=== PATIENT | female | born 1975 | race Caucasian/White ===

== ENCOUNTER 2023-01-16 12:11 | Emergency (ER) | payer BC, SELFPAY ==
[2023-01-16 12:19] VITALS: BP 170/100; PULSE 94; RESP 18; TEMP 36.6; O2SAT 98; BMI 39.2
[2023-01-16 12:22] VITALS: O2SAT 100
[2023-01-16 12:23] VITALS: BP 198/111; PULSE 69; RESP 16
--- NOTE | 2023-01-16 12:34 | ED_ITS ---
HPI - General Adult General Chief complaint: Weakness Stated complaint: EXTREMITY NUMBNESS/ NAUSEA Time Seen by Provider: 01/16/23 12:24 History of Present Illness HPI narrative: this patient's here for evaluation of an unusual feeling while at work. She says she went to work feeling fine. She is sitting down talking to coworkers and was not under any stress at the time. She says she just felt a wave come over her. She did not have a headache or neck pain. She did not vomit. She denied any chest pain palpitations or shortness of breath. She says she feels like her left arm is heavy but she did not notice any coordination problems. She did not have diplopia or dysarthria or dysphasia. She says she suffers from anxiety but this feels different than her anxiety. She has not had previous transient ischemic attacks or CVAs. She said she was scheduled an elective orthopedic procedure and they canceled it when they were prepping her because her blood pressure went bad. She went and followed up with a chief internal auditor and had a monitor and carotid ultrasound and they told her she was fine. She does take caffeine products but no tobacco or or illicit drugs. She is not on a blood pressure medicines. Her pressure was up a little bit on arrival here. She just feels like there is a h eaviness pulling on her left arm. She is right-handed dominant. She does not really have any other symptoms at this time. Related Data Allergies Allergy/AdvReac Type Severity Reaction Status Date / Time cephalexin [From Keflex] Allergy Unknown Verified 01/16/23 12:19 Exam Narrative Exam Narrative: GENERAL: Well hydrated, appears well, No obvious distress, Awake, Alert, Oriented x 3, Cognition intact HEENT: Normocephalic, No evidence of trauma, injury or infection, airway intact. Conjuntiva normal, no pallor or scleral icterus NECK: Supple, no meningeal irritation, full ROM, non-tender, No JVD CHEST: Symmetrical, no injury, non-tender, RESP: LCTA, no wheeze, rales, rhonchi,no subcutaneous emphysema, no labored resp irations CARDIO: Normal rate and rhythm, No murmur, Rub, or ectopy during auscultation. ABD: Non-tender, normal BS, no guarding, rebound or rigidity. No pulsatile, masses. No organomegaly NEURO: Neuro at baseline, No motor deficits, CN 2-12 Normal, Mentation inctact.fine and gross motor movement of her left upper extremity is normal. She has no pronator drift. EXTREMITIES: No edema, good tissue perfusion, no venous cords, non-tender SKIN: No petechiae, purpura, or abnormal bruising, warm, dry, no rash Constitutional Vital Signs, click to edit/add: Last Vital Signs Temp 97.8 F 01/16/23 12:19 Pulse 94 H 01/16/23 12:19 Resp 18 01/16/23 12:19 BP 170/100 H 01/16/23 12:19 Pulse Ox 98 01/16/23 12:19 O2 Del Method Nasal Cannula 01/16/23 12:19 Course Vital Signs Vital signs: Vital Signs Temperature 97.8 F 01/16/23 12:19 Pulse Rate 94 H 01/16/23 12:19 Respiratory Rate 18 01/16/23 12:19 Blood Pressure 170/100 H 01/16/23 12:19 Pulse Oximetry 98 01/16/23 12:19 Oxygen Delivery Method Nasal Cannula 01/16/23 12:19 Temperature 97.8 F 01/16/23 12:19 Pulse Rate 94 H 01/16/23 12:19 Respiratory Rate 18 01/16/23 12:19 Blood Pressure 170/100 H 01/16/23 12:19 Pulse Oximetry 98 01/16/23 12:19 Oxygen Delivery Method Nasal Cannula 01/16/23 12:19 Medical Decision Making MDM Narrative Medical decision making narrative: This document has been composed with a new electronic medical record and dragging voice recognition system. This document may not fully inaccurately reflect the entirety of the patient encounter.patient's CT scan and laboratory testing did not disclose any gross abnormalities. I will contact her primary care doctors for follow-up. This may represent a transient ischemic attack, less likely anxiety attack. I am recommending one or two baby aspirin a day. And I will speak to her primary care doctor for follow-up. I should also mention that she had a complete evaluation by cardiology last year that did not disclose any acute abnormalities. Discharge Plan Discharge Chief Complaint: Weakness Clinical Impression: Neurological deficit, transient Patient Disposition: Home, Self-Care Time of Disposition Decision: 13:58 Instructions: Paresthesia (ED) Additional Instructions: follow-up with her primary care for further evaluation Stand Alone Forms: Portal Instructions Referrals: Katy Villarreal MD [Primary Care Provider] - 1 week
--- NOTE | 2023-01-16 12:43 | ECG_ITS ---
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
[2023-01-16 12:55] VITALS: PULSE 79
[2023-01-16 13:01] LABS: Basophils Percent Auto 0.4 % (0.2-2.0); Eosinophils Absolute Auto 0.1 10^3/uL (0.0-0.7); Hematocrit 42.6 % (36.0-48.0); Hemoglobin 13.8 g/dL (12.0-16.0); Immature Granulocytes Abs Auto 0.03 10^3/uL (0.00-0.03); Immature Granulocytes Pct Auto 0.4 % (0.0-0.5); Lymphocytes Absolute Auto 0.8 10^3/uL (1.2-3.8); Lymphocytes Percent Auto 11.6 % (20.5-60.0); Mean Corpuscular HGB Conc 32.4 g/dL (29.9-35.2); Mean Corpuscular Hemoglobin 28.3 pg (26.7-34.0); Mean Corpuscular Volume 87.3 fL (81.0-99.0); Mean Platelet Volume 9.8 fL (9.5-13.5); Monocytes Absolute Auto 0.3 10^3/uL (0.3-0.8); Monocytes Percent Auto 4.8 % (1.7-12.0); Neutrophils Absolute Auto 5.6 10^3/uL (1.4-6.5); Neutrophils Percent Auto 81.8 % (43.0-75.0); Platelet Count 203 10^3/uL (150-450); Red Blood Count 4.88 10^6/uL (4.20-5.40); Red Cell Distribution Width 14.3 % (11.0-15.0); White Blood Count 6.8 10^3/uL (4.0-11.0)
--- NOTE | 2023-01-16 13:12 | CT_ITS ---
The [address] [address] Patient Name: MICHAELLE MARTIN MRN: [id number] date: 1975 Sex: F Assigned Patient Location: ER Current Patient Location: ER Accession/Order Number: [id number] Exam Date: 01/16/2023 13:02 Report Date: 01/16/2023 13:21 At the request of: ELVIN BHANDARI Procedure: CT head/brain wo con EXAM: CT head/brain wo con HISTORY: left arm weakness COMPARISON: None. TECHNIQUE: Multiple computed tomograms of the brain were obtained, with sagittal and coronal reconstructions. Radiation reduction technique and algorithms were utilized during the study. FINDINGS: The ventricles are not enlarged, the lateral ventricles are slightly asymmetric but within normal variation, and the third ventricles in the midline. The sylvian fissures and cortical sulci are unremarkable. There is no evidence of an intracranial hemorrhage, mass lesion or apparent acute infarct. No abnormality is seen in the deep white matter. The cerebellum and visualized brainstem are intact. The paranasal sinuses are clear as visualized. The middle ears are aerated. The mastoid sinuses are clear. There is no apparent acute skull fracture. CT/CT head/brain wo con IMPRESSION: There is no evidence of an intracranial hemorrhage, mass lesion or apparent acute infarct in this noncontrast study. The paranasal sinuses are clear. There is no evidence of a skull fracture. If the patient's symptoms persist and further evaluation is clinically indicated, perhaps an MRI of the brain would be helpful. Electronically authenticated by: LUCAS LEROY Date: 01/16/2023 13:21
[2023-01-16 13:14] VITALS: BP 163/91; PULSE 71; RESP 17; O2SAT 95
[2023-01-16 13:20] LABS: Alanine Aminotransferase 50 U/L (14-59); Albumin Globulin Ratio 0.9; Albumin Level 3.8 g/dL (3.4-5.0); Alkaline Phosphatase 97 U/L (46-116); Aspartate Amino Transferase 16 U/L (15-37); BUN Creatinine Ratio 22.1; Bilirubin Total 0.3 mg/dL (0.2-1.0); Calcium 9.4 mg/dL (8.5-10.1); Carbon Dioxide 27.7 mmol/L (21.0-32.0); Chloride 100 mmol/L (98-107); Estimated GFR (African America >60 (>=60); Estimated GFR (Non-African Ame >60 (>=60); Globulin 4.2 g/dL; Glucose 128 mg/dL (74-106); Potassium 3.7 mmol/L (3.5-5.1); Sodium 138 mmol/L (136-145)
== END 2023-01-16 14:15 | disposition home or self-care (01) ==
PROVIDERS: Emergency Provider Emergency Medicine Emergency Medical Services; PCP Family Medicine
DX: R29.818 Other symptoms and signs involving the nervous system (principal); F41.9 Anxiety disorder, unspecified
CPT/HCPCS: 36415; 70450; 80053; 85025; 93005; 99285

== ENCOUNTER 2023-01-22 14:12 | Outpatient (OUT) | payer BC, SELFPAY ==
[2023-01-22 15:35] LABS: Thyroid Stimulating Hormone 3.723 uIU/mL (0.358-3.740)
[2023-01-23 04:14] LABS: FSH 57.9 mIU/mL (.)
== END 2023-01-22 14:13 | disposition home or self-care (01) ==
LOC: LAB 14:12
PROVIDERS: PCP Family Medicine; Visit Provider Family Medicine
DX: R23.2 Flushing (principal); R00.2 Palpitations
CPT/HCPCS: 36415; 83001; 84443

== ENCOUNTER 2023-02-26 08:22 | Outpatient (OUT) | payer BC, SELFPAY ==
--- NOTE | 2023-02-27 06:59 | PM.STRESS ---
Stress Test Stress Test Allergies Allergy/AdvReac Type Severity Reaction Status Date / Time cephalexin [From Keflex] Allergy Unknown Verified 01/16/23 12:19 Requesting physician: Katy Villarreal Procedure: Exercise stress test General Information: Reason for Stress Test: Chest pain Cardiac History and Risk Factors: Arrhythmia during anesthesia Resting 12 - Lead Electrocardiogram: Rate & rhythm: Normal sinus at a rate of 72. [place]: Normal T-waves: Normal ST-segments: Normal Stress Test: Protocol: Brandon protocol was followed. Exercise capacity: Good exercise capacity. Total exercise time of 8 minutes 1 second reached Brandon stage 3 at 3MPH, 12% grade, & 8.2 METs. Blood pressure: Initial: 144/96, Maximum: 186/108, Recovery: 158/88 Rate & rhythm: Patient remained in sinus rhythm during the exercise and recovery portions of the study.? The maximum heart rate was 151, which was 86% of the maximum predicted heart rate 174. ST-segments & T-waves: There were no T-wave changes and no ST-segment changes when compared to the baseline EKG. Patient response/symptoms: There were no symptoms similar to the chief complaint. Interpretation: Normal exercise stress test. Clinical correlation required.
== END 2023-02-26 08:23 | disposition home or self-care (01) ==
PROVIDERS: PCP Family Medicine; Visit Provider Family Medicine
DX: R07.9 Chest pain, unspecified (principal)
CPT/HCPCS: 93017

== ENCOUNTER 2023-02-27 10:37 | Outpatient (REF) | payer BC, SELFPAY ==
[2023-03-03 16:12] LABS: Age Gdln ACOG Testing Note (.); HPV Aptima Negative (Negative); IGP, Aptima HPV, rfx 16/18,45 Note (.)
== END 2023-02-28 10:38 | disposition home or self-care (01) ==
LOC: LAB 10:37
PROVIDERS: PCP Family Medicine; Visit Provider Physician Assistant
DX: Z12.4 Encounter for screening for malignant neoplasm of cervix (principal)
CPT/HCPCS: 87624; G0145

== ENCOUNTER 2023-10-23 14:02 | Outpatient (OUT) | payer BC, SELFPAY ==
--- NOTE | 2023-10-23 14:05 | MM_ITS ---
Patient Name: MICHAELLE MARTIN MR#: [id number] : 1975 Exam Date: 10/23/2023 Ordering Doctor: DR Matti Madden . RADIOLOGY REPORT PROCEDURE: MM TOMOSYNTHESIS SCREENING BI COMPARISON: MG MAMM SCREEN 3D JUSTYNA CAD, 10/03/2022. MG MAMM SCREEN 3D JUSTYNA CAD, 09/30/2021. INDICATIONS: screening Calculator Name NCI Breast Cancer Risk Assessment Tool 5 Year Breast Cancer Risk 1.70% Lifetime Breast Cancer Risk 17.10% Personal Breast Cancer No Personal Ovarian Cancer No Treatments None Family Cancers Sister with breast cancer at age 45. LOCATION: The [facility] BREAST COMPOSITION: Scattered areas fibroglandular density. FINDINGS: DIAGNOSTIC CATEGORY 1--NEGATIVE. NO CHANGE FROM COMPARISON ASSESSMENT. Scattered benign-appearing lymph nodes are present. RIGHT BREAST: No significant suspicious finding. LEFT BREAST: No significant suspicious finding. RECOMMENDATIONS: ROUTINE MAMMOGRAM AND CLINICAL EVALUATION IN 12 MONTHS. PLEASE NOTE: A NORMAL MAMMOGRAM DOES NOT EXCLUDE THE POSSIBILITY OF BREAST CANCER. A CLINICALLY SUSPICIOUS PALPABLE LUMP SHOULD BE BIOPSIED. Dictated by: Noe Bagley MD on 10/23/2023 at 15:05 Approved by: Noe Bagley MD on 10/23/2023 at 15:06
== END 2023-10-23 14:03 | disposition home or self-care (01) ==
LOC: MAMMO 14:03
PROVIDERS: PCP Family Medicine; Visit Provider Obstetrics & Gynecology
DX: Z12.31 Encounter for screening mammogram for malignant neoplasm of breast (principal); Z80.3 Family history of malignant neoplasm of breast
CPT/HCPCS: 77063; 77067

== ENCOUNTER 2023-11-03 07:53 | Outpatient (OUT) | payer BC, SELFPAY ==
[2023-11-03 08:14] LABS: Basophils Percent Auto 0.6 % (0.2-2.0); Eosinophils Absolute Auto 0.1 10^3/uL (0.0-0.7); Eosinophils Percent Auto 1.8 % (0.9-7.0); Hematocrit 44.6 % (36.0-48.0); Hemoglobin 14.5 g/dL (12.0-16.0); Immature Granulocytes Abs Auto 0.01 10^3/uL (0.00-0.03); Immature Granulocytes Pct Auto 0.2 % (0.0-0.5); Lymphocytes Absolute Auto 0.8 10^3/uL (1.2-3.8); Lymphocytes Percent Auto 16.2 % (20.5-60.0); Mean Corpuscular HGB Conc 32.5 g/dL (29.9-35.2); Mean Corpuscular Hemoglobin 27.9 pg (26.7-34.0); Mean Corpuscular Volume 85.8 fL (81.0-99.0); Monocytes Absolute Auto 0.3 10^3/uL (0.3-0.8); Monocytes Percent Auto 5.4 % (1.7-12.0); Neutrophils Absolute Auto 3.8 10^3/uL (1.4-6.5); Neutrophils Percent Auto 75.8 % (43.0-75.0); Platelet Count 199 10^3/uL (150-450); Red Cell Distribution Width 13.1 % (11.0-15.0)
[2023-11-03 09:48] LABS: Alanine Aminotransferase 37 U/L (14-59); Albumin Globulin Ratio 0.9; Albumin Level 3.7 g/dL (3.4-5.0); Alkaline Phosphatase 79 U/L (46-116); Anion Gap 12.9; Aspartate Amino Transferase 18 U/L (15-37); BUN Creatinine Ratio 19.1; Bilirubin Total 0.6 mg/dL (0.2-1.0); Calcium 9.6 mg/dL (8.5-10.1); Chloride 101 mmol/L (98-107); Chol HDL Ratio 2.5; Cholesterol 188 mg/dL (<=200); Estimated GFR (African America >60 (>=60); Estimated GFR (Non-African Ame >60 (>=60); Glucose 98 mg/dL (74-106); HDL Cholesterol 76 mg/dL (40-60); Potassium 3.9 mmol/L (3.5-5.1); Sodium 141 mmol/L (136-145); Thyroid Stimulating Hormone 2.742 uIU/mL (0.358-3.740); Total Protein 7.7 g/dL (6.4-8.2); Triglycerides 67 mg/dL (<=150); VLDL CHOLESTEROL 13.4 mg/dL
== END 2023-11-03 07:54 | disposition home or self-care (01) ==
PROVIDERS: PCP Family Medicine; Visit Provider Family Medicine
DX: Z00.00 Encounter for general adult medical examination without abnormal findings (principal)
CPT/HCPCS: 36415; 80053; 80061; 84443; 85025

== ENCOUNTER 2024-05-19 13:08 | Outpatient (OUT) | payer BC, SELFPAY ==
--- NOTE | 2024-05-19 13:14 | XR_ITS ---
The [address] [address] Patient Name: MICHAELLE MARTIN MRN: [id number] date: 1975 Sex: F Assigned Patient Location: [facility] Current Patient Location: Accession/Order Number: [id number] Exam Date: 05/19/2024 13:29 Report Date: 05/22/2024 06:52 At the request of: EVAN FIGUEREDO Procedure: XR cervical spine 2-3V EXAMINATION: XR cervical spine 2-3V HISTORY: Cervicalgia, Segmental And Somatic Dysfunction Of Cervical COMPARISON: No relevant comparison available. FINDINGS: BONES: Reversal of normal lordotic curvature extending from C2 to C7. Minimal grade 1 anterior listhesis of C3 on 4. Multilevel mild degenerative facet arthropathy. DISC SPACES: Slight narrowing C5-C6. PARASPINOUS: Negative. No paraspinous abnormality is seen. OTHER: Negative. XR/XR cervical spine 2-3V IMPRESSION: 1. Mild degenerative changes of cervical spine. Electronically authenticated by: SHWETA SANDOVAL Date: 05/22/2024 06:52
== END 2024-05-19 13:09 | disposition home or self-care (01) ==
LOC: RAD 13:10
PROVIDERS: PCP Family Medicine; Visit Provider Chiropractor
DX: M54.2 Cervicalgia (principal); M99.01 Segmental and somatic dysfunction of cervical region
CPT/HCPCS: 72040

== ENCOUNTER 2024-12-19 10:21 | Outpatient (OUT) | payer BC, SELFPAY ==
--- OUTSIDE RECORDS SUMMARY | 2024-12-19 10:23 | XMS_ITS | Encounter Summary ---
Author Organization [facility] Address [address] [place] [address] Care Team Providers Care Manager Cardiac Name Role Phone Katy Villarreal MD Primary Care Provider [phone] Encounter Details Date Type Department Care Team (Late st Contact Info) Description 10/23/2023 Clinisync Result Encounter [facility] External Department Unsolicited Matti Madden, DO [address] [facility] [place] [address] Social History Tobacco Use Types Packs/Day Years Used Date Smoking Tobacco: Never Alcohol Use Standard Drinks/Week Comments Yes 0 (1 standard drink = 0.6 oz pure alcohol) monthly, Caffeine intake: 1-2 cups per day Comments Unknown Sex and Gender Information Value Date Recorded Sex Assigned at Not on file Legal Sex Female 7:38 PM EDT Gender Identity Not on file Sexual Orientation Not on file documented as of this encounter Plan of Treatment Not on file documented as of this encounter Procedures Procedure Name Priority Date/Time Associated Diagnosis Comments MM TOMOSYNTHESIS SCREENING BI 10/23/2023 3:06 PM EDT documented in this encounter Results * MM TOMOSYNTHESIS SCREENING BI (10/23/2023 3:06 PM EDT) Anatomical Region Laterality Modality Other 10/23/2023 3:0 6 PM EDT Narrative 10/23/2023 3:07 PM EDT The [address] [address] Mammography Report Signed Patient: POP HILL MR#: [id number] : 1975 Acct:[id number] Age/Sex: 48 / F ADM Date: 10/23/23 Loc: MAMMO Attending Dr: Matti Madden D.O. Ordering Physician: Matti Madden D.O. Results: Date of Service: 10/23/23 Follow Up: Procedure(s): MM tomosynthesis screening BI Accession Number(s): [id number] cc: Katy Villarreal M.D.; Matti Madden D.O. Patient Name: POP HILL MR#: [id number] : 1975 Exam Date: 10/23/2023 Ordering Doctor: DR Matti Madden . RADIOLOGY REPORT PROCEDURE: MM TOMOSYNTHESIS SCREENING BI COMPARISON: MG MAMM SCREEN 3D JUSTYNA CAD, 10/03/2022. MG MAMM SCREEN 3D JUSTYNA CAD, 09/30/2021. INDICATIONS: screening Calculator Name NCI Breast Cancer Risk Assessment Tool 5 Year Breast Cancer Risk 1.70% Lifetime Breast Cancer Risk 17.10% Personal Breast Cancer No Personal Ovarian Cancer No Treatments None Family Cancers Sister with breast cancer at age 45. LOCATION: The [facility] BREAST COMPOSITION: Scattered areas fibroglandular density. FINDINGS: DIAGNOSTIC CATEGORY 1--NEGATIVE. NO CHANGE FROM COMPARISON ASSESSMENT. Scattered benign-appearing lymph nodes are present. RIGHT BREAST: No significant suspicious finding. LEFT BREAST: No significant suspicious finding. RECOMMENDATIONS: ROUTINE MAMMOGRAM AND CLINICAL EVALUATION IN 12 MONTHS. PLEASE NOTE: A NORMAL MAMMOGRAM DOES NOT EXCLUDE THE POSSIBILITY OF BREAST CANCER. A CLINICALLY SUSPICIOUS PALPABLE LUMP SHOULD BE BIOPSIED. Dictated by: Noe Bagley MD on 10/23/2023 at 15:05 Approved by: Noe Bagley MD on 10/23/2023 at 15:06 Dictated By: Noe Bagley M.D. Signed By: 10/23/23 1507 DD/ 1506 TD/TT: Right Of Way Cutter: Procedure Note Radiology, Radiologist, - 10/23/2023 [place] [address] Mammography Report Signed Patient: POP HILL MMR#: [id number] : 1975Acct:[id number] Age/Sex: 48 / FADM Date: 10/23/23 Loc: MAMMO Attending Dr: Matti Madden D.O. Ordering Physician: Matti Madden D.O.Results: Date of Service: 10/23/23Follow Up: Procedure(s): MM tomosynthesis screening BI Accession Number(s): [id number] cc: Katy Villarreal M.D.; Matti Madden D.O. Patient Name: POP HILL MR#: [id number] : 1975 Exam Date: 10/23/2023 Ordering Doctor: DR Matti Madden . RADIOLOGY REPORT PROCEDURE: MM TOMOSYNTHESIS SCREENING BI COMPARISON: MG MAMM SCREEN 3D JUSTYNA CAD, 10/03/2022. MG MAMM SCREEN 3DBIL CAD, 09/30/2021. INDICATIONS: screening Calculator Name NCI Breast Cancer Risk Assessment Tool 5 Year Breast Cancer Risk 1.70% Lifetime Breast Cancer Risk 17.10% Personal Breast Cancer No Personal Ovarian Cancer No Treatments None Family Cancers Sister with breast cancer at age 45. LOCATION: The [facility] BREAST COMPOSITION: Scattered areas fibroglandular density. FINDINGS: DIAGNOSTIC CATEGORY 1--NEGATIVE. NO CHANGE FROM COMPARISON ASSESSMENT. Scattered benign-appearing lymph nodes are present. RIGHT BREAST: No significant suspicious finding. LEFT BREAST: No significant suspicious finding. RECOMMENDATIONS: ROUTINE MAMMOGRAM AND CLINICAL EVALUATION IN 12 MONTHS. PLEASE NOTE: A NORMAL MAMMOGRAM DOES NOT EXCLUDE THE POSSIBILITY OFBREAST CANCER. A CLINICALLY SUSPICIOUS PALPABLE LUMP SHOULD BE BIOPSIED. Dictated by: Noe Bagley MD on 10/23/2023 at 15:05 Approved by: Noe Bagley MD on 10/23/2023 at 15:06 Dictated By: Noe Bagley M.D. Signed By:10/23/23 1507 DD/ 1506 TD/TT: Right Of Way Cutter: Matti Madden DO [facility] Final Result documented in this encounter Visit Diagnoses Not on filedocumented in this encounter Care Teams Manager Cardiac Relationship Specialty Start Date End Date Katy Villarreal MD PCP - General Family Medicine 02/27/23 documented as of this encounter
--- OUTSIDE RECORDS SUMMARY | 2024-12-19 10:24 | XMS_ITS | Clinical Summary ---
Author Organization [facility] Address [address] [place] [address] Care Team Providers Care Band Straightener Name Role Phone Katy Villarreal MD Primary Care Provider [phone] Allergies Active Allergy Reactions Criticality Noted Date Comments Cephalexin Hives 05/01/2024 Other Reaction(s): Swelling of lip, tongue, and throat Cephalosporins Rash Low 02/27/2023 Diphenhydramine 05/19/2024 Other Reaction(s): Swelling Medications hydroCHLOROthiazi de (Microzide) 12.5 MG capsule Take 12.5 mg by mouth. 2 Active sertraline (Zoloft) 100 MG tablet Take 100 mg by mouth in the morning. 3 Active ALPRAZolam (Xanax) 0.25 MG tablet Take 0.25 mg by mouth 2 Active ibuprofen (IBU) 800 MG tablet every 8 (eight) hours Active tiZANidine (Zanaflex) 4 MG tablet TAKE 1 TABLET BY MOUTH EVERY 12 HOURS NEEDED FOR MUSCLE SPASTICITY 4 Active fluticasone (Flonase) 50 MCG/ACT nasal sprayIndications: Chronic rhinitis Administer 2 sprays into each nostril Daily Shake gently. Before first use, prime pump. After use, clean tip and replace cap. 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 Immunizations Immunization Administration Dates Next Due Influenza, injectable, MDCK, preservative free, quadrivalent 05/23/2018 Influenza, injectable, quadr ivalent, preservative free 05/10/2020,05/01/2019,05/25/2017,2015 Family History Medical History Relation Name Comments COPD Father Laz Butcher Hypertension Father Laz Butcher Stroke Father Laz Butcher Stroke Maternal Grandmother Taty garcia Hypertension Mother Stroke Paternal Grandfather Cancer Sister Carla robles Relation Name Status Comments Father Laz Butcher Alive Maternal Grandmother Taty garcia Mother Alive Paternal Grandfather Sister Carla robles Social History Tobacco Use Types Packs/Day Years Used Date Smoking Tobacco: Former Cigarettes 0.5 2 0 12/17/1997 - 08/09/1999 Smokeless Tobacco: Never Tobacco Cessation:Counseling Given: Not Answered Alcohol Use Standard Drinks/Week Comments Yes 5 (1 standard drink = 0.6 oz pure alcohol) monthly, Caffeine intake: 1-2 cups per day Comments Unknown Sex and Gender Information Value Date Recorded Sex Assigned at Not on file Legal Sex Female 7:38 PM EDT Gender Identity Not on file Sexual Orientation Not on file Last Filed Vital Signs Vital Sign Reading Time Taken Comments Blood Pressure 150/90 06/23/2024 8:22 AM EST Pulse - - Temperature - - Respiratory Rate - - Oxygen Saturation - - Inhaled Oxygen Concentration - - Weight 96.6 kg (213 lb) 06/23/2024 8:22 AM EST Height 152.4 cm (5') 06/23/2024 8:22 AM EST Body Mass Index 41.6 06/23/2024 8:22 AM EST Plan of Treatment Health Maintenance Due Date Last Done Comments CT Colonography 1975 Colonoscopy 1975 Colorectal Cancer Screening 1975 FIT-DNA 1975 FIT 1975 FOBT 1975 Sigmoidoscopy 1975 HPV/Cotest 2006 Mammogram 10/22/2024 10/23/2023, 10/03/2022 Influenza Vaccine (Season Ended) 2025 05/10/2020, 05/01/2019, 05/23/2018, Additional history exists Cervical Cancer Screening 02/27/2026 Pap Smear 02/27/2026 02/27/2023 Procedures Procedure Name Priority Date/Time Associated Diagnosis Comments MM TOMOSYNTHESIS SCREENING BI 10/23/2023 3:06 PM EDT PAP SMEAR Routine 02/27/2023 12:00 AM EDT from Last 3 Months or Most Recently Relevant to Health Maintenance Results * MM TOMOSYNTHESIS SCREENING BI (10/23/2023 3:06 PM EDT) Anatomical Region Laterality Modality Other 10/23/2023 3:06 PM EDT Narrative 10/23/2023 3:07 [place] [address] Mammography Report Signed Patient: POP MARTIN MR#: [id number] : 1975 Acct:[id number] Age/Sex: 48 / F ADM Date: 10/23/23 Loc: MAMMO Attending Dr: Matti Madden D.O. Ordering Physician: Matti Madden D.O. Results: Date of Service: 10/23/23 Follow Up: Procedure(s): MM tomosynthesis screening BI Accession Number(s): [id number] cc: Katy Villarreal M.D.; Matti Madden D.O. Patient Name: POP MARTIN MR#: [id number] : 1975 Exam Date: 10/23/2023 Ordering Doctor: [...] breast cancer at age 46. LOCATION: The [facility] BREAST COMPOSITION: Scattered areas fibroglandular density. [...] Signed By: 10/23/23 1507 DD/ 1506 TD/TT: Trimmer Climber: Procedure Note Radiology, Radiologist, - 10/23/2023 [place] [address] Mammography Report Signed Patient: POP MARTIN MMR#: [id number] : 1975Acct:[id number] Age/Sex: 48 / FADM Date: 10/23/23 Loc: MAMMO Attending Dr: Matti Madden D.O. Ordering Physician: Matti Madden D.O.Results: Date of Service: 10/23/23Follow Up: Procedure(s): MM tomosynthesis screening BI Accession Number(s): [id number] cc: Katy Villarreal M.D.; Matti Madden D.O. Patient Name: POP MARTIN MR#: [id number] : 1975 Exam Date: 10/23/2023 Ordering Doctor: [...] breast cancer at age 46. LOCATION: The [facility] BREAST COMPOSITION: Scattered areas fibroglandular density. [...] M.D. Signed By:10/23/23 1507 DD/ 1506 TD/TT: Trimmer Climber: us Matti Maryanne DO [facility] Final Result * Pap Smear (02/27/2023 12:00 AM EDT) Swab Cervical swab / Unknown us [facility] Maryanne Nurse LAB CYTOLOGY ORDERABLES Final Result EXTERNAL LAB from Last 3 Months or Most Recently Relevant to Health Maintenance Insurance BS Care Teams Band Straightener Relationship Specialty Start Date End Date Katy Villarreal MD PCP - General Family Medicine 02/27/23
--- OUTSIDE RECORDS SUMMARY | 2024-12-19 10:24 | XMS_ITS | Encounter Summary ---
Author Organization [facility] Address [address] [place] [address] Care Team Providers Care Director Of Marketing Communications Name Role Phone Katy Villarreal MD Primary Care Provider [phone] Encounter Details Date Type Department Care Team (Late st Contact Info) Description 02/26/2023 Abstract [facility] [address] [facility] [place] [id number] Libra Mullins PA [address] [facility] [address] [place], [facility] Social History Tobacco Use Types Packs/Day Years Used Date Smoking Tobacco: Never Tobacco Cessation:Counseling Given: Not Answered Alcohol Use Standard Drinks/Week Comments Yes 0 [...] on file documented as of this encounter Visit Diagnoses Not on filedocumented in this encounter Care Teams Director Of Marketing Communications Relationship Specialty Start Date End Date Katy Villarreal MD PCP - General Family Medicine 02/27/23 documented as of this encounter
--- OUTSIDE RECORDS SUMMARY | 2024-12-19 10:24 | XMS_ITS | Clinical Summary ---
Author Organization [facility] Address [address] 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 04/10/2024 Active hydroCHLOROthiaz christina (HYDRODiuril) 25 mg tablet Take 1 tablet (25 mg) by mouth early in the morning.. 07/28/2024 Active sertraline (Zoloft) 100 mg tablet Take 1 tablet (100 mg) by mouth early in the morning.. 04/10/2024 Active sertraline (Zoloft) 100 mg tablet Take 1 tablet (100 mg) by mouth once daily. Active Active Problems Problem Noted Date Diagnosed Date Anxiety 05/19/2024 Chronic mastoiditis of both sides 05/19/2024 Encounters Date Type Department Care Team Description 09/25/2024 12:45 PM EDT Office Visit [facility] [address] [place] [address] Liban Bob MD Deviated nasal septum (Primary Dx); Nasal obstruction; Nasal deformity; Deviated septum; Nasal congestion; Swelling of nose; Hypertrophy of inferior nasal turbinate; Nasal alar collapse; Sleep-disordered breathing; Difficulty breathing 09/25/2024 Travel 09/24/2024 Travel from Last 3 Months Social History Tobacco Use Types Packs/Day Years Used Date Smoking Tobacco: Former Cigarettes Tobacco Cessation:Counseling Given: Not Answered Comments Unknown Sex and Gender Information Value Date Recorded Sex Assigned at Not on file Legal Sex Female 2:00 PM EST Gender Identity Not on file Sexual Orientation Not on file Last Filed Vital Signs Vital Sign Reading Time Taken Comments Blood Pressure - - Pulse - - Temperature - - Respiratory Rate - - Oxygen Saturation - - Inhaled Oxygen Concentration - - Weight 95.3 kg (210 lb) 09/25/2024 12:39 PM EDT Height 152.4 cm (5') 09/25/2024 12:39 PM EDT Body Mass Index 41.01 09/25/2024 12:39 PM EDT Plan of Treatment Health Maintenance Due Date Last Done Comments CT Colonography 1976 Colonoscopy 1976 Colorectal Cancer Screening 1976 FIT-DNA (Cologuard) 1976 FIT 1976 HIV Screening 1976 Lipid Panel 1976 Sigmoidoscopy 1976 Yearly Adult Physical 1976 MMR Vaccines (1 of 1 - Standard series) 1977 Hepatitis C Screening 1994 Hepatitis B Vaccines (1 of 3 - 19+ 3-dose series) 1995 HPV/Cotest 1997 DTaP/Tdap/Td Vaccines (1 - Tdap) 1998 Mammogram 10/04/2023 10/03/2022 COVID-19 Vaccine ( - season) 2024 Influenza Vaccine (Season Ended) 2025 05/10/2020, 05/01/2019, 05/23/2018, Additional history exists Cervical Cancer Screening 02/27/2026 Pap Smear 02/27/2026 02/27/2023 Zoster Vaccines (1 of 2) 2026 HIB Vaccines Aged Out No longer eligi ble based on patient's age to complete this topic HPV Vaccines Aged Out No longer eligi ble based on patient's age to complete this topic Hepatitis A Vaccines Aged Out No long er eligible based on patient's age to complete this topic IPV Vaccines Aged Out No longer eligi ble based on patient's age to complete this topic Meningococcal Vaccine Aged Out No mikki christina eligible based on patient's age to complete this topic Pneumococcal Vaccine: Pediatrics and At-Risk Adult Patients Aged Out No longer eligible based on patient's age to complete this topic Rotavirus Vaccines Aged Out No longer eligible based on patient's age to complete this topic Insurance [facility]
--- OUTSIDE RECORDS SUMMARY | 2024-12-19 10:25 | XMS_ITS | CCD ---
Author Organization [facility] CliniSyde Care Team Providers Care Heliotherapist Name Role Phone KATY LAWLER Primary Care Physician [phone] Kimmy Alonzo Unavailable Ivonne Caballero Unavailable Unavailable Amber Messer Unavailable Unavailable Katy Lawler Unavailable OVIDIO Celeste, LENORA Admitting Unavailable BUCKY, DR KATY Amaya Primary Care Unavailable OVIDIO Celeste, LENORA Attending Unavailable OVIDIO ., LENORA Consulting Unavailable FILLETICIA GALLARDO Consulting Unavailable BUCKY, DR KATY Amaya Attending Unavailable BUCKY, DR KATY Amaya Consulting Unavailable BUCKY, DR KATY Amaya Primary Care Unavailable BUCKY, DR KATY Amaya Admitting Unavailable LAWLER, DR KATY Amaya Admitting Unavailable LAWLER, DR KATY Amaya Attending Unavailable LAWLER, DR KATY Amaya Primary Care Unavailable LAWLER, DR KATY Amaya Consulting Unavailable TARAS ., DR STARK Admitting Unavailable TARAS ., DR STARK Attending Unavailable TARAS ., DR SATRK Consulting Unavailable LAWLER, DR KATY Amaya Primary Care Unavailable ZIEBER, DR ARAM Gao Consulting Unavailable TARAS ., DR STARK Admitting Unavailable LAWLER, DR KATY Amaya Primary Care Unavailable TARAS ., DR STARK Attending Unavailable TARAS ., DR STARK Consulting Unavailable LAWLER, DR KATY Amaya Attending Unavailable LAWLER, DR KATY Amaya Consulting Unavailable BUCKY, DR KATY Amaya Primary Care Unavailable BUCKY, DR KATY Amaya Admitting Unavailable JULIO CESAR, DR MAMADOU Gao Admitting Unavailable BUCKY, DR KATY Amaya Primary Care Unavailable JULIO CESAR, DR MAMADOU Gao Attending Unavailable JULIO CESAR, DR MAMADOU Gao Consulting Unavailable TREVOR ROSE Consulting Unavailable MD Katy Lawler Primary Care Provider DO Jennifer Akers Attending Provider Katy Lawler MD Primary Care Provider MD Ari Bowen Attending Unavailable NONE, XXXX Referring Unavailable MD Ari Bowen Admitting Unavailable MD Ari Bowen Referring Unavailable MD Ari Bowen Admitting Unavailable MD Ari Bowen Attending Unavailable CAROLINE GALINDO Attending Unavailable CAROLINE GALINDO Attending Unavailable Katy Lawler MD Primary Care Provider Katy Lawler MD Attending Provider Katy Lawler Admitting Unavailable Katy Lawler Primary Care Unavailable Katy Lawler Attending Unavailable Ly, Jennifer L Admitting Unavailable Ly, Jennifer L Attending Unavailable Katy Lawler Primary Care Unavailable Unavailable Primary Care Provider UnavailGORDON Hunter Attending Unavailable Allergies Allergy Classification Reported Allergen(s) Allergy Type Date of Onset Reaction(s) Facility Cephalosporins (antibiotic) (2 sources) Cephalexin Drug Allergy 12-28-19 24 hives/swelling , Nausea [facility] (19 sources) Cephalexin; Translations: [Cephalexin] Drug Allergy 11-20-19 14 Head and neck swelling (finding) [facility] (9 sources) diphenhydrAMINE; Translations: [diphenhydramine] Drug Allergy Swelling [facility] (1 source) Keflex *CEPHALOSPORINS* Propensity to adverse reactions Unknown [facility] Other (1 source) Allergies Reconciled Propensity to adverse reactions Unknown [employer] Other (1 source) patient allergy list reviewed by nurse or physicia Propensity to adverse reactions 09-05-19 14 Comment:Done [employer] Other (14 sources) Cephalexin; Translations: [cephalexin] Drug Allergy 10-26-19 24 [facility] (15 sources) Cephalosporins (Antibiotic); Translations: [Cephalosporins] Allergy to substance 02-28-20 23 [facility] (5 sources) diphenhydrAMINE Drug Allergy 05-19-20 24 [facility] (1 source) ALLERGIES NOT ON FILE; Translations: [ALLERGIES NOT ON FILE] Propensity to adverse reactions (disorder) RUST 3 Repository Medications Current Medications Medication Drug Class(es) Dates Sig (Normalized) Sig (Original) 0.5 ML semaglutide 0.5 MG/ML Auto-Injector [Wegovy] (1 source) inject 0.5 mL by subcutaneous injection every week Wegovy 0.25 MG/0.5ML 0.5 mL Subcutaneous weekly for 30 days Active 0.5 ML semaglutide 1 MG/ML Auto-Injector [Wegovy] (2 sources) Start: 10-17-2022 inject 0.5 mL by subcutaneous injection every week Wegovy 0.5 MG/0.5ML 0.5 mL Subcutaneous weekly for 30 days Oct, Active 0.5 ML semaglutide 2 MG/ML Auto-Injector [Wegovy] (2 sources) Start: 11-09-2022 inject 0.5 mL by subcutaneous injection every week Wegovy 1 MG/0.5ML 0.5 mL Subcutaneous weekly for 30 days November, Active 0.75 ML semaglutide 3.2 MG/ML Auto-Injector [Wegovy] (3 sources) Start: 11-09-2022 inject 0.75 mL by subcutaneous injection every week Wegovy 2.4 MG/0.75ML 0.75 mL Subcutaneous weekly for 30 days November, Active Start: 11-09-2022 inject 0.75 mL by cartagena bcutaneous injection every week Wegovy 2.4 MG/0.75ML Inject 0.75 mL under the skin weekly. for 28 Active Augmentin (8 sources) Penicillin-class Antibacterial Start: 05-21-2024 Augmentin Refills(s) 0 Start Date: 05/21/24 Status: Ordered Start: 05-19-2024 End: 06-18-2024 take 1 tablet by mouth in the morning amoxicillin-clavulanate (Augmentin) 875-125 MG tablet Indications: Chronic pansinusitis Take 1 tablet (875 mg) by mouth in the morning and 1 tablet (875 mg) before bedtime. 60 tablet 05/19/2024 06/18/2024 Active Start: 05-01-2024 End: 07-28-2024 take 1 tablet by mouth twice daily Amoxicillin-Pot Clavulanate 875-125 mg tablet Discontinued 1 TAB PO Twice daily May 01, 2024 12:00am July 28, 2024 9:43am Zyrtec (9 sources) Histamine-1 Receptor Antagonist Start: 05-21-2024 Zyrtec Refills(s) 0 Start Date: 05/21/24 Status: Ordered Start: 05-19-2024 End: 05-19-2025 take 1 tablet by mouth once daily as needed cetirizine (ZyrTEC) 10 MG tablet Indications: Chronic pansinusitis Take 1 tablet (10 mg) by mouth Daily as needed for allergies 30 tablet 11 05/19/2024 05/19/2025 Active fluticasone propionate 0.05 mg/actuat metered dose nasal spray (9 sources) Corticosteroid Start: 05-21-2024 take 1 spray(s) nasal route twice daily Flonase 0.05 mg/inh [place] 1 spray(s), Nasal, BID, 16 gram, Refill(s) 0, each nostril Start Date: 05/21/24 Status: Ordered Start: 05-19-2024 End: 05-19-2025 take 2 spray(s) nasal route once daily fluticasone (Flonase) 50 MCG/ACT nasal spray Indications: Chronic rhinitis Administer 2 sprays into each nostril Daily Shake gently. Before first use, prime pump. After use, clean tip and replace cap. 48 g 3 05/19/2024 05/19/2025 Active End: 05-19-2024 fluticasone (Flonase) 50 MCG /ACT nasal spray USE 2 SPRAYS IN EACH NOSTRIL DAILY FOR 30 DAYS for 90 05/19/2024 Discontinued hydroCHLOROthiazide 25 mg oral tablet (20 sources) Thiazide Diuretic Start: 04-10-2024 take 1 tablet by mouth in the morning hydroCHLOROthiazide (HYDRODiuril) 25 mg tablet Take 1 tablet (25 mg) by mouth early in the morning.. 07/28/2024 Active Start: 01-02-2024 End: 07-10-2024 take 1 tablet by mouth once daily Hydrochlorothiazide 25 mg tablet Active 0 .ROUTE .COMPLEX 90 July 10, 2024 2:16pm TAKE 1 TABLET BY MOUTH EVERY DAY Start: 09-25-2023 End: 01-02-2024 take 1 tablet by mouth once daily Hydrochlorothiazide 25 mg tablet Discontinued 25 MG PO Daily September 25, 2023 12:00am January 02, 2024 10:41am FreeTextSig: TAKE 1 TABLET BY MOUTH EVERY DAY; Note: Source Status: Start; Refills: 1; Qty: 90 Tablet; Provider: Bucky Burns ( ) Start: 06-27-2022 hydroCHLOROthi azide (Microzide) 12.5 MG capsule Take 12.5 mg by mouth. 06/27/2022 Active take 1 tablet by everett th once daily hydroCHLOROthiazide 25 MG TAKE 1 TABLET BY MOUTH EVERY DAY for 90 Active hydroCHLOROthiaz christina Active ibuprofen 800 mg oral tablet (5 sources) Nonsteroidal Anti-inflammatory Drug ibuprofen (IBU) 8 00 MG tablet every 8 (eight) hours Active predniSONE (4 sources) Start: 05-21-2024 predniSONE Refills(s) 0 Start Date: 05/21/24 Status: Ordered Start: 05-19-2024 End: 05-25-2024 take 1 tablet by mouth in the morning predniSONE (Deltasone) 20 MG tablet Indications: Chronic rhinitis Take 1 tablet (20 mg) by mouth in the morning and 1 tablet (20 mg) before bedtime. Do all this for 6 days. 12 tablet 05/19/2024 05/25/2024 Semaglutide (Weight Loss) (1 source) Start: 10-28-2024 Semaglutide (Weight Loss) (Wegovy) 0.25 mg/0.5 mL pen injector Active 0.25 MG SUBCUT every week October 28, 2024 12:00am administer weeks 1 through 4 of therapy sertraline 100 mg oral tablet (20 sources) Serotonin Reuptake Inhibitor Start: 04-10-2024 End: 10-27-2024 take 1 tablet by mouth once daily Sertraline 100 mg tablet Active 0 .ROUTE .COMPLEX October 27, 2024 8:25am TAKE 1 TABLET BY MOUTH EVERY DAY Start: 11-07-2022 End: 04-10-2024 take 1 tablet by mouth once daily Sertraline 100 mg tablet Discontinued 100 MG PO Daily January 07, 2024 9:31am April 10, 2024 9:06am Start: 06-27-2022 take 1 tablet by everett th once daily Zoloft 50 mg Tab 50 mg = 1 tab(s), Oral, Daily, Refills(s) 0, Anxiety Start Date: 06/27/22 Status: Ordered Sertraline HCl A ctive Completed/Discontinued Medications Medication Drug Class(es) Dates Sig (Normalized) Sig (Original) ALPRAZolam 0.5 mg oral tablet (20 sources) Benzodiazepine Start: 09-25-2023 End: 10-27-2023 take 1 tablet by mouth twice daily Alprazolam 0.5 mg tablet Discontinued 1 TAB PO Twice daily September 25, 2023 12:00am October 27, 2023 10:22am FreeTextSi tablet Orally Twice a day; Note: Source Status: Taking; Refills: 0; Qty: 60 Tablet; Provider: Bucky Amaya Start: 01-16-2023 take 1 tablet by everett th every twelve hours ALPRAZolam 0.5 MG 1 tablet Orally Twice a day for 30 days Jan, Active Start: 06-27-2022 ALPRAZolam (Xa nax) 0.25 MG tablet Take 0.25 mg by mouth 06/27/2022 Active azithromycin 250 mg oral tablet (18 sources) Macrolide Antimicrobial Start: 03-04-2024 End: 03-25-2024 Azithromycin Discontinued 0 PO .COMPLEX March 04, 2024 2:41pm March 25, 2024 2:10pm For 250 mg dose pack: take 500 mg today (day 1), then 250 mg for 4 days (days 2-5) PO Start: 01-29-2024 End: 03-25-2024 Azithromycin 250 mg tablet D iscontinued 0 PO .COMPLEX March 04, 2024 2:41pm March 25, 2024 2:10pm For 250 mg dose pack: take 500 mg today (day 1), then 250 mg for 4 days (days 2-5) PO Start: 01-29-2024 End: 03-04-2024 Azithromycin Discontinued 0 PO .COMPLEX January 29, 2024 12:00am March 04, 2024 2:41pm For 250 mg dose pack: take 500 mg today (day 1), then 250 mg for 4 days (days 2-5) PO Start: 01-29-2024 Azithromycin A ctive 0 PO .COMPLEX January 29, 2024 12:00am For 250 mg dose pack: take 500 mg today (day 1), then 250 mg for 4 days (days 2-5) PO Start: 10-25-2022 Azithromycin 2 50 MG as directed Orally 2 tabs po today, then 1 tab daily x 4 more days for 5 Oct, Active Start: 10-25-2022 estradiol 0.5 mg oral tablet (3 sources) Estrogen Start: 02-27-2023 End: 05-19-2024 take 1 tablet by mouth in the morning estradiol (Estrace) 0.5 MG tablet Indications: Hot flashes Take 1 tablet (0.5 mg) by mouth in the morning. 90 tablet 3 02/27/2023 05/19/2024 Discontinued (Therapy completed) methylPREDNISolone 4 mg oral tablet (12 sources) Corticosteroid Start: 03-25-2024 End: 05-01-2024 Methylprednisolone 4 mg tablets,dose pack Discontinued 0 PO per package directions March 25, 2024 12:00am May 01, 2024 2:25pm PO PER PKG DIR for 6 days Start: 03-25-2024 End: 05-01-2024 Methylprednisolone Discontin ued 0 PO per package directions March 25, 2024 12:00am May 01, 2024 2:25pm PO PER PKG DIR for 6 days Start: 03-25-2024 Methylpredniso lone Active 0 PO per package directions March 25, 2024 12:00am PO PER PKG DIR for 6 days Start: 01-29-2024 End: 03-04-2024 Methylprednisolone 4 mg tabl ets,dose pack Discontinued 0 PO per package directions January 29, 2024 12:00am March 04, 2024 2:41pm PO PER PKG DIR for 6 days Start: 01-29-2024 End: 03-04-2024 Methylprednisolone Discontin ued 0 PO per package directions January 29, 2024 12:00am March 04, 2024 2:41pm PO PER PKG DIR for 6 days Start: 01-29-2024 Methylpredniso lone Active 0 PO per package directions January 29, 2024 12:00am PO PER PKG DIR for 6 days Semaglutide (Weight Loss) (9 sources) Start: 09-25-2023 End: 10-26-2023 inject 0.75 mL by subcutaneous injection every week Semaglutide (Weight Loss) (Eduardo) 2.4 mg/0.75 mL pen injector Discontinued MG SUBCUT September 24, 2023 11:00pm October 26, 2023 8:43am FreeTextSig: Inject 0.75 mL under the skin weekly.; Note: Source Status: Start; Refills: 2; Qty: 3 Milliliter; Provider: Bucky Burns ( ) Start: 09-25-2023 End: 10-26-2023 inject 0.75 mL by subcutaneous injection every week Semaglutide (Weight Loss) (Wegovy) 2.4 mg/0.75 mL pen injector Discontinued MG SUBCUT September 25, 2023 12:00am October 26, 2023 9:43am FreeTextSig: Inject 0.75 mL under the skin weekly.; Note: Source Status: Start; Refills: 2; Qty: 3 Milliliter; Provider: Bucky Burns ( ) tiZANidine 4 mg oral tablet (14 sources) Central alpha-2 Adrenergic Agonist Start: 08-21-2023 End: 05-01-2024 take 1 tablet by mouth every twelve hours as needed Tizanidine 4 mg tablet Discontinued 4 MG PO Every 12 hours as needed for muscle spasticity August 21, 2023 1:00am May 01, 2024 2:25pm Problems Active Problems Problem Classification Problem Date Documented Date Episodic/Chronic Acute bronchitis (2 sources) Acute bronchitis; Translations: [Acute bronchitis, unspecified] Onset: 08-28-2018 Episodic Anxiety disorders (20 sources) Anxiety; Translations: [Generalized anxiety disorder] Onset: 05-19-2024 06-27-2022 Chronic Cardiac and circulatory congenital anomalies (8 sources) Heart disease; Translations: [Congenital malformation of heart, unspecified] Chronic Cardiac dysrhythmias (6 sources) Palpitations; Translations: [Palpitations] Onset: 04-26-2017 05-11-2024 Episodic Conditions associated with dizziness or vertigo (6 sources) Cochlear hydrops of right inner ear; 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, right ear] Onset: 05-19-2024 05-19-2024 Chronic Essential hypertension (4 sources) Essential hypertension; Translations: [Essential (primary) hypertension] 07-28-2024 Chronic Fever of unknown origin (1 source) Fever; Translations: [Fever, unspecified] Episodic Noninfectious gastroenteritis (1 source) Non-infective enteritis and colitis; Translations: [Noninfective gastroenteritis and colitis, unspecified] Episodic Other acquired deformities (1 source) Finding of nasal deformity; Translations: [Acquired deformity of nose] 09-30-2024 Episodic Other acquired deformities (1 source) Alar collapse; Translations: [Nasal alar collapse] 09-30-2024 Episodic Other circulatory disease (1 source) Elevated blood-pressure reading without diagnosis of hypertension; Translations: [Elevated blood-pressure reading, without diagnosis of hypertension] Episodic Other ear and sense organ disorders (1 source) Otitis externa of right ear; Translations: [Unspecified otitis externa, right ear] Chronic Other lower respiratory disease (1 source) Pleuritic pain; Translations: [Pleurodynia] Episodic Other lower respiratory disease (1 source) Dyspnea; Translations: [Dyspnea, unspecified] Episodic Other lower respiratory disease (1 source) Difficulty breathing; Translations: [Other abnormalities of breathing] 09-30-2024 Episodic Other non-traumatic joint disorders (1 source) Arthralgia of the lower leg; Translations: [Pain in left knee] Episodic Other nutritional; endocrine; and metabolic disorders (9 sources) Obesity; Translations: [Obesity, unspecified] Chronic Other nutritional; endocrine; and metabolic disorders (20 sources) Body mass index 40+ - severely obese; Translations: [Body mass index (BMI) 40.0-44.9, adult] Chronic Other nutritional; endocrine; and metabolic disorders (1 source) Body mass index (BMI) 40.0-44.9, adult Chronic Other nutritional; endocrine; and metabolic disorders (4 sources) Morbid (severe) obesity due to excess calories; Translations: [Morbid obesity] Chronic Other nutritional; endocrine; and metabolic disorders (4 sources) Obese class II; Translations: [Body mass index (BMI) 37.0-37.9, adult] Onset: 07-19-2017 Chronic Other nutritional; endocrine; and metabolic disorders (9 sources) Severe obesity; Translations: [Morbid (severe) obesity due to excess calories] 10-26-2023 Chronic Other screening for suspected conditions (not mental disorders or infectious disease) (20 sources) Encounter for screening mammogram for malignant neoplasm of breast; Translations: [Encounter for screening for malignant neoplasm of cervix] Onset: 12-07-2021 Episodic Other skin disorders (1 source) Generalized hyperhidrosis; Translations: [Generalized hyperhidrosis] Episodic Other skin disorders (1 source) Swollen nose; Translations: [Localized swelling, mass and lump, head] 09-30-2024 Episodic Other upper respiratory disease (2 sources) Chronic rhinitis; Translations: [Chronic rhinitis] 05-19-2024 Chronic Other upper respiratory disease (3 sources) Nasal obstruction; Translations: [Other specified disorders of nose and nasal sinuses] 06-23-2024 Episodic Other upper respiratory disease (2 sources) Deviated nasal septum; Translations: [Deviated nasal septum] 09-30-2024 Episodic Other upper respiratory disease (1 source) Nasal congestion; Translations: [Nasal congestion] 09-30-2024 Episodic Other upper respiratory disease (1 source) Hypertrophy of nasal turbinates; Translations: [Hypertrophy of nasal turbinates] 09-30-2024 Episodic Other upper respiratory infections (4 sources) Chronic maxillary sinusitis; Translations: [Chronic maxillary sinusitis] Onset: 10-08-2018 05-19-2024 Chronic Other upper respiratory infections (20 sources) Acute upper respiratory infection, unspecified; Translations: [Acute maxillary sinusitis, unspecified] Onset: 06-23-2013 Resolved: 02-19-2022 Episodic Otitis media and related conditions (7 sources) Bilateral chronic mastoiditis; Translations: [Chronic mastoiditis, bilateral] Onset: 05-19-2024 05-19-2024 Chronic Otitis media and related conditions (11 sources) Dysfunction of right eustachian tube; Translations: [Other specified disorders of Eustachian tube, right ear] Onset: 11-18-2013 Episodic Pleurisy; pneumothorax; pulmonary collapse (2 sources) Pleurisy; Translations: [Pleurisy] Onset: 03-21-2022 Episodic Residual codes; unclassified (4 sources) Obstructive sleep apnea (adult) (pediatric); Translations: [OBSTRUCTIVE SLEEP APNEA] Onset: 09-20-2022 Chronic Residual codes; unclassified (1 source) Finding related to sleep; Translations: [Sleep apnea, unspecified] 09-30-2024 Chronic Residual codes; unclassified (8 sources) Body fluid retention 06-27-2022 Episodic Residual codes; unclassified (8 sources) Tobacco user; Translations: [Tobacco use] Episodic Residual codes; unclassified (1 source) Family history of malignant neoplasm of breast; Translations: [FAMILY HX MALIG NEOPLASM OF BREAST] Onset: 10-09-2022 Episodic Residual codes; unclassified (1 source) Flushing; Translations: [Flushing] Episodic Residual codes; unclassified (1 source) Family history of diabetes mellitus; Translations: [Family history of diabetes mellitus] Episodic Residual codes; unclassified (1 source) Localized edema; Translations: [Localized edema] Episodic Sprains and strains (8 sources) Sprain of unspecified site of left knee, initial encounter; Translations: [Neck sprain] Onset: 11-18-2013 05-19-2024 Episodic Thyroid disorders (1 source) Hypothyroidism; Translations: [Hypothyroidism, unspecified] Chronic Unclassified (4 sources) CONTACT W/AND (SUSP) EXPOS COVID-19; Translations: [CONTACT W/AND (SUSP) EXPOS COVID-19] Onset: 02-17-2022 Past or Other Problems Problem Classification Problem Date Documented Date Episodic/Chronic Conditions associated with dizziness or vertigo (1 source) Peripheral vertigo; Translations: [Unspecified peripheral vertigo] Onset: 11-18-2013 Episodic E Codes: Natural/environment (1 source) Other and unspecified overexertion or strenuous movements or postures, initial encounter; Translations: [OTH AND UNS OVREXRT/STRN MVMT/POS INT] Onset: 03-14-2022 Episodic E Codes: Unspecified (1 source) Activity, dancing; Translations: [ACTIVITY DANCING] Onset: 03-14-2022 Episodic Genitourinary symptoms and ill-defined conditions (1 source) Dysuria; Translations: [Dysuria] Onset: 06-01-2015 Episodic Immunizations and screening for infectious disease (1 source) Encounter for screening for human papillomavirus (HPV); Translations: [ENC SCREENING HUMAN PAPILLOMAVIRUS] Onset: 12-14-2021 Episodic Malaise and fatigue (1 source) Fatigue; Translations: [Other fatigue] Onset: 07-19-2017 Episodic Nonspecific chest pain (3 sources) Other chest pain; Translations: [OTHER CHEST PAIN] Onset: 03-19-2022 Episodic Other connective tissue disease (1 source) Spasm; Translations: [Other muscle spasm] Onset: 11-18-2013 Episodic Other lower respiratory disease (1 source) Chronic cough; Translations: [Chronic cough] Resolved: 12-06-2021 Episodic Other non-traumatic joint disorders (3 sources) Pain in left knee; Translations: [PAIN IN LEFT KNEE] Onset: 03-13-2022 Episodic Other non-traumatic joint disorders (1 source) Effusion, left knee; Translations: [EFFUSION LEFT KNEE] Onset: 03-14-2022 Episodic Other non-traumatic joint disorders (1 source) Arthralgia of the ankle and/or foot; Translations: [Pain in joint, ankle and foot] Onset: 01-06-2016 Episodic Other nutritional; endocrine; and metabolic disorders (1 source) Abnormal weight gain; Translations: [Abnormal weight gain] Onset: 09-01-2015 Episodic Other nutritional; endocrine; and metabolic disorders (1 source) Excessive thirst; Translations: [Polydipsia] Onset: 07-19-2017 Episodic Other skin disorders (1 source) Mass in head or neck; Translations: [Swelling, mass, or lump in head and neck] Onset: 10-21-2014 Episodic Other skin disorders (1 source) Hypertrophic condition of skin; Translations: [Other hypertrophic disorders of the skin] Resolved: 12-06-2021 Episodic Residual codes; unclassified (1 source) Requires influenza virus vaccination; Translations: [Need for prophylactic vaccination and inoculation, Influenza] Onset: 03-23-2015 Episodic Unclassified (1 source) CONTACT W/AND (SUSP) EXPOS COVID-19; Translations: [CONTACT W/AND (SUSP) EXPOS COVID-19] Onset: 02-16-2022 Results Test Name Value Interpretation Reference Range Facility Pap IG, CtNg, rfx HPV Aptima on 07-28-2024 PAP Chlamydia TIMMY Negative Normal Negative [facility] Comment on above: Performed By: #### P AP #### [facility] , PAP Gonococcus Negative Normal Negative [facility] Comment on above: Result Comment: Perf ormed at: - [facility] [id number] Wardrobe Technician: Jazzy Jimenez MD, Phone: [phone] Performed at: = - [facility] [address] [id number] Wardrobe Technician: Jazzy Jimenez MD, Phone: [phone] PERFORMED BY: [facility] [address] PATHOLOGIST [employer] HELICOPTER MOISES CROFT M.D. Performed By: #### P AP [id number] #### [facility] , Pap IG Note Normal . [facility] Comment on above: Result Comment: TEST S RESULT FLAG UNITS REF RANGE LAB Clinician Provided Cytology Information No. of containers..01 ThinPrep Vial DIAGNOSIS: 01 NEGATIVE FOR INTRAEPITHELIAL LESION OR MALIGNANCY. THIS SPECIMEN WAS RESCREENED PART OF OUR STAFF INTERPRETER PROGRAM. Specimen adequacy: 01 Satisfactory for evaluation. No endocervical component is identified. Performed by: Salena Bledsoe, [employer] (ASCP) QC reviewed by: 01 Albina Messer, [employer] . 01 Note: Note 01 The Pap smear is a screening test designed to aid in the detection of premalignant and malignant conditions of the uterine cervix. It is not a diagnostic procedure and should not be used as the sole means of detecting cervical cancer. Both false-positive and false-negative reports do occur. Test Methodology: Note 01 This liquid based ThinPrep(R) pap test was screened with the use of an image guided system. . 01 The HPV DNA reflex criteria were not met with this specimen result therefore, no HPV testing was performed. FLAG LEGEND: L-Low Normal,H-High Normal,LL-Alert Low,HH-Alert High <-Panic Low,>-Panic High,A-Abnormal,AA-Critical Abnormal Performed at: 01 [facility] [address] [place] [address] Jazzy Jimenez MD, Performed By: #### P AP [id number] #### [facility] , Event Monitoron 06-20-2024 Event Monitor Event Monitor EVENT MONITOR ENROLLMENT PERIOD: 06/06/2024 through 06/13/2024 INDICATIONS: Palpitations. FINDINGS: Predominant underlying rhythm was sinus with minimum heart rate of 48, average heart rate 71, maximum heart rate 128 beats per minute. There were 8 patient events with symptoms of not specified and baseline. There was no secondary arrhythmia. Total burden of premature ventricular and supraventricular ectopy was less than 0.01%. One ventricular ectopic run of less than 5 beats with heart rate of 85 beats per minute was registered. Symptomatic entries corresponded to sinus rhythm. CONCLUSIONS: Underlying sinus rhythm, overall unremarkable cardiac event monitor with no evidence of malignant ventricular arrhythmias, clinically significant pauses, atrial fibrillation. READ BY: Ari Bowen MD ca Dictated: 06/16/2024 [id number] Transcribed: 06/19/2024 [facility] Comment on above: Result Comment: Elec tronically Signed By: Jessi KAHN, Ari Avery\.br\Date and Time Signed: 06/20/24 16:09 EST Heart and Vascular Office/ inic Noteon 05-21-2024 Heart and Vascular Office/Clinic Note Heart and Vascular Office/Clinic Note Chief Complaint f/u palps (last seen 07/21/22), pt wondering if it is medication related History of Present Illness The patient is a 48-year-old female with no significant prior cardiac history who presents for evaluation of palpitations, happening lately almost every day. She saw Dr. Mccoy back in 2022 due to some bradycardia. Her heart monitor at that time was unremarkable. She reports no syncope or presyncope, chest pain or shortness of breath. Review of Systems PHQ Score Initial Depression Screen Score: 0 SCORE ROS - Provider Constitutional: no fever, no chills, no sweats, no weakness Respiratory: no shortness of breath, no cough Cardiovascular: no chest pain, positive for palpitations Neuro: no dizziness. no loss of consciousness Physical Exam Vitals & Measurements HR: 62(Peripheral) RR: 16 BP: 132/86 SpO2: 98% HT: 59 in HT: 149 cm WT: 96.4 kg WT: 212.525 lb BMI: 43.42 General: alert, no acute distress Neck: Supple, noJVD nocarotid bruit Cardiovascular: regular rate and rhythm, no murmur normal peripheral perfusion Respiratory: Lungs CTAB, respirations non labored Extremities: no edema left lower extremity. no edema right lower extremity Neurological: oriented x 4, LOC appropriate for age, speech normal Skin: Warm, dry, intact- no rash or concerning lesions Procedure ECG shows normal sinus rhythm and is essentially normal Assessment/Plan Palpitations (R00.2: Palpitations) Will obtain a 7 days event recorder. Ordered: ECG 12 Lead Adult Follow-up No qualifying data available As needed Problem List/Past Medical History Ongoing No qualifying data Historical No qualifying data Procedure/Surgical History H/O: hysterectomy, H/O: tubal ligation, Tonsillectomy. Medications Augmentin Flonase 0.05 mg/inh [place], 1 spray(s), Nasal, BID hydrochlorothiazide 12.5 mg Cap, 12.5 mg= 1 cap(s), Oral, Daily predniSONE Xanax 0.25 mg Tab, 0.25 mg= 1 tab(s), Oral, Daily, PRN Zoloft 50 mg Tab, 50 mg= 1 tab(s), Oral, Daily Zyrtec Allergies Benadryl (Swelling) Keflex (Swelling of lip, tongue, and throat) Social History Alcohol - Low Risk, 06/27/2022 Current. Beer. 1-2 times per week., 05/21/2024 Substance Abuse - Denies Substance Abuse, 06/27/2022 Never., 05/21/2024 Tobacco - Denies Tobacco Use, 06/27/2022 Former smoker, quit more than 30 days ago Tobacco Use:., 05/21/2024 Family History COPD: Father. Stroke: Grandparent and Grandparent. Normal [facility] Comment on above: Result Comment: Elec tronically Signed By: Jessi KAHN, Ari Childress.fernanda\Date and Time Signed: 05/21/24 15:40 EST Bryant 12-28-2023 L Specimen: [id number] Received: 12/28/23 Status: DANDRE Rodriguez Num: [id number] Spec Type: Surgical Subm Dr: Jennifer Akers DO Tissues: A Colon Biopsy (RT COLON BX) B Colon Biopsy (ASC POLYP) C Colon Biopsy (LT COLON BX) Procedures: HE/6, Gross/Micro L4/3 Age/ Patient Sex Location Account Attending Physician Michaelle Hill Caleb 48/F [id number] Jennifer Akers DO SPEC NUM: [id number] RECD: 12/28/23 STATUS: DANDRE RODRIGUEZ NUM: [id number] SYEDA: 12/28/23- DR: Jennifer Akers DO ENTERED: 12/28/[address]: SPEC TYPE: Surgical DEPT: S ORDERED: HE/6, Gross/Micro L4/3 ORDERED: HE/6, Gross/Micro L4/3 Pathological Diagnosis A. Right colon, biopsy: No evidence of colitis. B. Polyp, ascending colon, biopsy: Hyperplastic polyp. C. Left colon, biopsy: No evidence of colitis. Clinical Information Screening, diarrhea. Rule out microscopic colitis. Gross Description Received are 3 formalin filled containers each labeled with the patient's name, date of and specific specimen site. A. Further labeled right colon BX are 2 zamora mucosal tissue fragments each measuring 0.3 x 0.2 x 0.1 cm, entirely submitted in A1. B. Further labeled ascending colon polyp are 2 zamora mucosal tissue fragments measuring 0.3 x 0.2 x 0.1 cm and 0.2 x 0.2 x 0.1 cm, entirely submitted in B1. C. For the labeled left colon BX are 3 zamora mucosal tissue fragments ranging from 0.3 x Specimen: [id number] Received: 12/28/23 Status: DANDRE Rodriguez Num: [id number] Spec Type: Surgical Subm Dr: Jennifer Akers DO Tissues: A Colon Biopsy (RT COLON BX) B Colon Biopsy (ASC POLYP) C Colon Biopsy (LT COLON BX) Procedures: HE/6, Gross/Micro L4/3 Patient: Michaelle Hill Caleb [id number] (Continued) Specimen: [id number] Received: 12/28/23 (Continued) Gross Description (Continued) Signed (signature on file) Moises Croft MD 12/31/23 1510 Specimen: [id number] Received: 12/28/23 Status: DANDRE Rodriguez Num: [id number] Spec Type: Surgical Subm Dr: Jennifer Akers DO Tissues: A Colon Biopsy (RT COLON BX) B Colon Biopsy (ASC POLYP) C Colon Biopsy (LT COLON BX) Procedures: HE/6, Gross/Micro L4/3 Patient: Michaelle Hill [id number] (Continued) Specimen: [id number] Received: 12/28/23 (Continued) Gross Description (Continued) 0.2 x 0.1 cm to 0.1 x 0.1 x 0.1 cm, entirely submitted in C1. CPT Codes 80711c9 Specimen: [id number] Received: 12/28/23 Status: DANDRE Rodriguez Num: [id number] Spec Type: Surgical Subm Dr: Jennifer Akers DO Tissues: A Colon Biopsy (RT COLON BX) B Colon Biopsy (ASC POLYP) C Colon Biopsy (LT COLON BX) Procedures: HE/6, Gross/Micro L4/3 Patient: Michaelle Hill [id number] (Continued) Signed (signature on file) Moises Croft MD 12/31/23 1510 Normal [facility] Basophils Auto (Bld) [#/Vol] on 11-03-2023 Basophils (Bld) [#/Vol] 0.0 10 3/uL 0.0-0.1 [facility] Basophils/100 WBC Auto (Bld) on 11-03-2023 Basophils/100 WBC (Bld) 0.6 % 0.2-2.0 [facility] Cholesterol in LDL Calc [Mas s/Vol]on 11-03-2023 Cholesterol in LDL [Mass/Vol] 99.0 mg/dL [facility] Comment on above: <100 mg/dl [id number] 0-129 mg/dl NEAR OR ABOVE [id number] mg/dl BORDERLINE [id number] mg/dl HIGH>190 mg/dl VERY HIGH Cholesterol in VLDL Calc [Ma ss/Vol]on 11-03-2023 Cholesterol in VLDL [Mass/Vol] 13.4 mg/dL [facility] Eosinophils/100 WBC Auto (Bl d)on 11-03-2023 Eosinophils/100 WBC (Bld) 1.8 % 0.9-7.0 [facility] Erythrocyte distribution wid th Auto (RBC) [Ratio]on 11-03-2023 Erythrocyte distribution width (RBC) [Ratio] 13.1 % 11.0-15.0 [facility] Estimated glomerular filtrat ion rate (GFR) non- Americanon 11-03-2023 GFR/1.73 sq M.predicted among non-blacks MDRD (S/P/Bld) [Vol rate/Area] mL/min/{1.73_m2} >=60 [facility] Globulin Calc (S) [Mass/Vol] on 11-03-2023 Globulin (S) [Mass/Vol] 4.0 g/dL [facility] Hematocrit Auto (Bld) [Volum e fraction]on 11-03-2023 Hematocrit (Bld) [Volume fraction] 44.6 % 36.0-48.0 [facility] Hemoglobin [Mass/volume] in Bloodon 11-03-2023 Hemoglobin (Bld) [Mass/Vol] 14.5 g/dL 12.0-16.0 [facility] Laboratory - Chemistry and C hemistry - challengeon 11-03-2023 Albumin [Mass/Vol] 3.7 g/dL 3.4-5.0 [facility] ALP [Catalytic activity/Vol] 79 U/L 46-116 [facility] ALT [Catalytic activity/Vol] 37 U/L 14-59 [facility] AST [Catalytic activity/Vol] 18 U/L 15-37 [facility] Bilirubin [Mass/Vol] 0.6 mg/dL 0.2-1.0 [facility] Calcium [Mass/Vol] 9.6 mg/dL 8.5-10.1 [facility] Chloride [Moles/Vol] 101 mmol/L 98-107 [facility] Cholesterol [Mass/Vol] 188 mg/dL <=200 [facility] Cholesterol in HDL [Mass/Vol] 76 mg/dL High 40-60 [facility] Comment on above: > or =60 mg/dl - LOW CARDIOVASCULAR RISK<40 mg/dl - HIGH CARDIOVASCULAR RISK CO2 [Moles/Vol] 31.0 mmol/L 21.0-32.0 [facility] Creatinine [Mass/Vol] 0.68 mg/dL 0.55-1.02 [facility] GFR/1.73 sq M.predicted MDRD (S/P/Bld) [Vol rate/Area] mL/min/{1.73_m2} >=60 [facility] Glucose [Mass/Vol] 98 mg/dL 74-106 [facility] Potassium [Moles/Vol] 3.9 mmol/L 3.5-5.1 [facility] Protein [Mass/Vol] 7.7 g/dL 6.4-8.2 [facility] Sodium [Moles/Vol] 141 mmol/L 136-145 [facility] Triglyceride [Mass/Vol] 67 mg/dL <=150 [facility] TSH Qn 2.742 m[IU]/L 0.358-3.740 [facility] Urea nitrogen [Mass/Vol] 13.0 mg/dL 7.0-18.0 [facility] Urea nitrogen/Creatinine [Mass ratio] 19.1 mg/mg [facility] Laboratory - Hematology and Cell countson 11-03-2023 Immature granulocytes/100 WBC (Bld) 0.2 % 0.0-0.5 [facility] Leukocytes [#/volume] correc bert for nucleated erythrocytes in Blood by Automated counon 11-03-2023 WBC corrected for nucl RBC Auto (Bld) [#/Vol] 5.0 10 3/uL 4.0-11.0 [facility] Lymphocytes Auto (Bld) [#/Vo l]on 11-03-2023 Lymphocytes (Bld) [#/Vol] 0.8 10 3/uL Low 1.2-3.8 [facility] Lymphocytes/100 WBC Auto (Bl d)on 11-03-2023 Lymphocytes/100 WBC (Bld) 16.2 % Low 20.5-60.0 [facility] MCH Auto (RBC) [Entitic mass ]on 11-03-2023 MCH (RBC) [Entitic mass] 27.9 pg 26.7-34.0 [facility] MCHC Auto (RBC) [Mass/Vol]on 11-03-2023 MCHC (RBC) [Mass/Vol] 32.5 g/dL 29.9-35.2 [facility] MCV Auto (RBC) [Entitic vol] on 11-03-2023 MCV (RBC) [Entitic vol] 85.8 fL 81.0-99.0 [facility] Monocytes Auto (Bld) [#/Vol] on 11-03-2023 Monocytes (Bld) [#/Vol] 0.3 10 3/uL 0.3-0.8 [facility] Monocytes/100 WBC Auto (Bld) on 11-03-2023 Monocytes/100 WBC (Bld) 5.4 % 1.7-12.0 [facility] Neutrophils Auto (Bld) [#/Vo l]on 11-03-2023 Neutrophils (Bld) [#/Vol] 3.8 10 3/uL 1.4-6.5 [facility] Neutrophils/100 WBC Auto (Bl d)on 11-03-2023 Neutrophils/100 WBC (Bld) 75.8 % High 43.0-75.0 [facility] No Panel Informationon 11-02 Eosinophils # (Auto) 0.1 10 3/uL 0.0-0.7 [facility] Immature Granulocyte # (Auto) 0.01 10 3/uL 0.00-0.03 [facility] Platelet mean volume Auto (B ld) [Entitic vol]on 11-03-2023 Platelet mean volume (Bld) [Entitic vol] 10.0 fL 9.5-13.5 [facility] Platelets Auto (Bld) [#/Vol] on 11-03-2023 Platelets (Bld) [#/Vol] 199 10 3/uL 150-450 [facility] RBC Auto (Bld) [#/Vol]on RBC (Bld) [#/Vol] 5.20 10 6/uL 4.20-5.40 [facility] Serum or plasma albumin/glob ulin mass ratioon 11-03-2023 Albumin/Globulin [Mass ratio] 0.9 {ratio} [facility] Serum or plasma anion gap de terminationon 11-03-2023 Anion gap [Moles/Vol] 12.9 mmol/L Fi [facility] Serum or plasma total choles terol/high density lipoprotein (HDL) cholesterol mass laureano 11-03-2023 Cholesterol.total/Chol esterol in HDL [Mass ratio] 2.5 {ratio} [facility] Comment on above: 3.3 - 4.4 LOW RISK4. 4 - 7.1 AVERAGE RISK7.1 - 11.0 MODERATE RISK>11.0 HIGH RISK MG MAMM SCREEN 3D JUSTYNA CADon 10-03-2022 MG MAMM SCREEN 3D JUSTYNA CAD Patient: MICHAELLE HILL Exam Date: 10/03/2022 : 1975 Gender:F Ordering : DR MI GRAJEDA . Admission #: [id number] Family : Order #: [id number] CLICK HERE TO VIEW EXAM RADIOLOGY REPORT PROCEDURE: MAMMOGRAM SCREENING 3D BILATERAL CAD COMPARISON: MG MAMM SCREEN JUSTYNA W CAD, 09/15/2020. MG MAMM SCREEN JUSTYNA W CAD, 09/15/2019. MG MAMM SCREEN JUSTYNA W CAD, 07/18/2017. MG MAMM SCREEN 3D JUSTYNA CAD, 09/30/2021. INDICATIONS: Screening mammography Calculator Name NCI Breast Cancer Risk Assessment Tool 5 Year Breast Cancer Risk 1.60% Lifetime Breast Cancer Risk 17.30% Personal Breast Cancer No Personal Ovarian Cancer No Treatments None Family Cancers Sister with breast cancer at age 45. LOCATION: [facility] BREAST COMPOSITION: Scattered areas fibroglandular density. FINDINGS: DIAGNOSTIC CATEGORY 1--NEGATIVE. RIGHT BREAST: No significant suspicious finding. No significant change has occurred. LEFT BREAST: No significant suspicious finding. No significant change has occurred. RECOMMENDATIONS: ROUTINE MAMMOGRAM AND CLINICAL EVALUATION IN 12 MONTHS. PLEASE NOTE: A NORMAL MAMMOGRAM DOES NOT EXCLUDE THE POSSIBILITY OF BREAST CANCER. A CLINICALLY SUSPICIOUS PALPABLE LUMP SHOULD BE BIOPSIED. Dictated by: Aram Downey M.D. on 10/04/2022 at 07:30 Approved by: Aram Downey M.D. on 10/04/2022 at 07:32 Normal [facility] CHEMISTRYOrdered By: SYSTEM SYSTEM on 06-27-2022 Anion gap [Moles/Vol] 12 mmol/L Normal 6 - 16 mEq/L F C [facility] Chloride [Moles/Vol] 102 mmol/L Normal 101 - 1 11 mmol/L [facility] CO2 [Moles/Vol] 27 mmol/L Normal 21 - 31 mmol/L [facility] Creatinine [Mass/Vol] 0.8 mg/dL Normal 0.5 - 1.3 mg/dL [facility] GFR/1.73 sq M.predicted among blacks MDRD (S/P/Bld) [Vol rate/Area] mL/min/1.73 m2 Normal >=59mL/min/1. 73 m2 FT Chem S GFR/1.73 sq M.predicted among non-blacks MDRD (S/P/Bld) [Vol rate/Area] mL/min/1.73 m2 Normal >=59mL/min/1. 73 m2 [facility] Chem S Potassium [Moles/Vol] 4.1 mmol/L Normal 3.5 - 5.3 mmol/L [facility] Sodium [Moles/Vol] 137 mmol/L Normal 135 - 145 mmol/L [facility] Urea nitrogen [Mass/Vol] 16 mg/dL Normal 5 - 21 mg/dL [facility] HEMATOLOGYOrdered By: Chio Sethi on 06-27-2022 Erythrocyte distribution width (RBC) [Ratio] 13.7 % Normal 10.9 - 14.2 % [facility] Hematocrit (Bld) [Volume fraction] 41.3 % Normal 34.0 - 46.0 % [facility] Hemoglobin (Bld) [Mass/Vol] 13.7 g/dL Normal 12.0 - 16.0 gm/dL [facility] MCH (RBC) [Entitic mass] 28.1 pg Normal 27.0 - 34.0 pg [facility] MCHC (RBC) [Mass/Vol] 33.2 g/dL Normal 31.4 - 36.0 gm/dL [facility] MCV (RBC) [Entitic vol] 84.4 fL Normal 80.0 - 100.0 fL [facility] Platelet mean volume (Bld) [Entitic vol] 8.2 fL Normal 6.4 - 10.8 fL [facility]eAutoSS Platelets (Bld) [#/Vol] 199.0 E9/L Normal 150.0 - 500.0 E9/L [facility] HemeAutoSS RBC (Bld) [#/Vol] 4.9 E12/L Normal 4.3 - 5.9 E12/L [facility] HemeAutoSS WBC corrected for nucl RBC Auto (Bld) [#/Vol] 5.4 E9/L Normal 4.0 - 11.0 E9/L [facility] HemeAutoSS US Venous, Unilat, Lower Ext Lefton 05-15-2022 US Venous, Unilat, Lower Ext Left CLINICAL HISTORY: Leg swelling COMPARISON: Left knee MRI 11/06/17. TECHNIQUE: The left lower extremity veins were evaluated with color Doppler, grayscale imaging, and spectral analysis while using compression and augmentation when possible. FINDINGS: Evaluation of the left lower extremity veins from the thigh to the calf shows normal phasic flow, normal augmentation of the Doppler signal, and normal compression of the deep veins. There is no sonographic evidence for deep venous thrombosis from the left groin to the popliteal region. There is no sonographic evidence for deep vein thrombosis in the left calf veins. IMPRESSION: No DVT of the left lower extremity veins. Report reported and signed by Tino Higgins on 05/15/2022 1756 Normal [facility] MRI Knee w/o Lefton 03-24-20 22 MRI Knee w/o Left HISTORY: Knee pain and decreased range of motion. Medial meniscus tear. COMPARISON: Radiographs of the knee 1218 at 2019 and MRI of the knee 11/06/2017 TECHNIQUE: Multiplanar multisequence MRI of the left knee was performed without contrast. FINDINGS: Quadriceps and patellar tendons are intact. Small knee joint effusion. Full thickness tear of the anterior cruciate ligament. The posterior crucial ligament is intact The medial collateral ligament, lateral collateral ligament, and popliteus myotendinous unit are intact. Centrally displaced bucket-handle tear of the medial meniscus. The lateral meniscus is intact. No well defined or measurable articular cartilage defect or subchondral bone marrow edema. Popliteal fossa structures are intact. No Mckay's cyst. IMPRESSION: Full-thickness tear of the anterior cruciate ligament. Centrally displaced bucket-handle tear of the medial meniscus. Report reported and signed by Leticia Dumont on 03/24/2022 1600 Normal [facility] CBC AUTO DIFFon 03-19-2022 BASO # 0.0 103/ul Normal 0.0-0.1 [facility] Comment on above: Performed By: #### C BC #### [facility] [address] [place] [address] Dr. Melvi Daniels Basophils/100 WBC (Bld) 0.4 % Normal 0.2-2.0 [facility] Comment on above: Performed By: #### C BC #### [facility] [address] [place] [address] Dr. Melvi Daniels EO # 0.2 103/ul Normal 0.0-0.7 [facility] Comment on above: Performed By: #### C BC #### [facility] [address] [place] [address] Dr. Melvi Daniels Eosinophils/100 WBC (Bld) 2.1 % Normal 0.9-7.0 [facility] Comment on above: Performed By: #### C BC #### [facility] [address] [place] [address] Dr. Melvi Daniels Erythrocyte distribution width (RBC) [Ratio] 13.5 % Normal 11.0-15.0 [facility] Comment on above: Performed By: #### C BC #### [facility] [address] [place] [address] Dr. Melvi Daniels Hematocrit (Bld) [Volume fraction] 42.3 % Normal 36.0-48.0 [facility] Comment on above: Performed By: #### C BC #### [facility] [address] [place] [address] Dr. Melvi Daniels Hemoglobin (Bld) [Mass/Vol] 13.5 g/dL Normal 12.0-16.0 [facility] Comment on above: Performed By: #### C BC #### [facility] [address] [place] [address] Dr. Melvi Daniels IG # 0.01 10e3/ul Normal 0.00-0.03 [facility] Comment on above: Performed By: #### C BC #### [facility] [address] [place] [address] Dr. Melvi Daniels IG % 0.1 % Normal 0.0-0.5 [facility] Comment on above: Performed By: #### C BC #### [facility] [address] [place] [address] Dr. Melvi Daniels LYMPH # 1.1 103/ul Critically low 1.2-3.8 [facility] Comment on above: Performed By: #### C BC #### [facility] [address] [place] [address] Dr. Melvi Daniels Lymphocytes/100 WBC (Bld) 15.1 % Critically low 20.5-60.0 [facility] Comment on above: Performed By: #### C BC #### [facility] [address] [place] [address] Dr. Melvi Daniels MANUAL DIFF REQ NO Normal [facility] Comment on above: Performed By: #### C BC #### [facility] [address] [place] [address] Dr. Melvi Daniels MCH (RBC) [Entitic mass] 27.9 pg Normal 26.7-34.0 [facility] Comment on above: Performed By: #### C BC #### [facility] [address] [place] [address] Dr. Melvi Daniels MCHC (RBC) [Mass/Vol] 31.9 g/dL Normal 29.9-35.2 [facility] Comment on above: Performed By: #### C BC #### [facility] [address] [place] [address] Dr. Melvi Daniels MCV (RBC) [Entitic vol] 87.4 fL Normal 81.0-99.0 [facility] Comment on above: Performed By: #### C BC #### [facility] [address] [place] [address] Dr. Melvi Daniels MONO # 0.4 103/ul Normal 0.3-0.8 [facility] Comment on above: Performed By: #### C BC #### [facility] [address] [place] [address] Dr. Melvi Daniels Monocytes/100 WBC (Bld) 6.0 % Normal 1.7-12.0 [facility] Comment on above: Performed By: #### C BC #### [facility] [address] [place] [address] Dr. Melvi Daniels NEUT # 5.4 103/ul Normal 1.4-6.5 [facility] Comment on above: Performed By: #### C BC #### [facility] [address] [place] [address] Dr. Melvi Daniels Neutrophils/100 WBC (Bld) 76.3 % Critically high 43.0-75.0 [facility] Comment on above: Performed By: #### C BC #### [facility] [address] [place] [address] Dr. Melvi Daniels Platelet mean volume (Bld) [Entitic vol] 9.7 fL Normal 9.5-13.5 [facility] Comment on above: Performed By: #### C BC #### [facility] [address] [place] [address] Dr. Melvi Daniels PLT 188 103/ul Normal 150-450 [facility] Comment on above: Performed By: #### C BC #### [facility] [address] [place] [address] Dr. Melvi Daniels RBC 4.84 106/ul Normal 4.20-5.40 [facility] Comment on above: Performed By: #### C BC #### [facility] [address] [place] [address] Dr. Melvi Daniels WBC 7.0 103/ul Normal 4.0-11.0 [facility] Comment on above: Performed By: #### C BC #### [facility] [address] [place] [address] Dr. Melvi Daniels Covid-19 PCR ([facility])on 03-09 SARS-CoV-2 (COVID-19) RNA TIMMY+probe Ql (Unsp spec) Not detected Normal NOT DETECTED [facility] Comment on above: Result Comment: When diagnostic testing is negative, the possibility of a false negative should be considered in the context of a patient's recent exposures and the presence of clinical signs and symptoms consistent with SARS-CoV-2. This test is not yet approved or cleared by the [place] FDA. When there are no FDA-approved or cleared tests available, and other criteria are met, FDA can make tests available under an emergency access mechanism called an Emergency Use Authorization (EUA). The EUA for this test is supported by the [place] of Health and Human Service's declaration that circumstances exist to justify the emergency use of in vitro diagnostics for the detection and/or diagnosis of the virus that causes COVID-19. This EUA will remain in effect for the duration of the COVID-19 declaration justifying emergency of IVDs, unless it is terminated or revoked by the FDA (after which the test may no longer be used). Performed By: #### C VDTBH #### [facility] [address] [place] [address] Dr. Melvi Daniels D-DIMERon 03-19-2022 D-DIMER 0.36 mg/L FEU Normal <=0.59 [facility] Comment on above: Performed By: #### D DIM #### [facility] [address] [place] [address] Dr. Melvi Daniels D-DIMER COMMENTS SEE BELOW Normal [facility] Comment on above: Result Comment: Incr eases in D-Dimer concentration observed with thromboembolic events can be variable due to localization, size, and age of the thrombus. Therefore, a thromboembolic event cannot be diagnosed with certainty on the basis of the reference range. D-Dimers may also be elevated for a variety of disorders including: advanced age, , coronary disease, cancer, liver disease, infection, inflammation, hematoma, DIC, trauma, post-surgery, diabetes, thrombolytic or anticoagulant therapy, stress, and generalized hospitalization. Performed By: #### D DIM #### [facility] [address] [place] [address] Dr. Melvi Daniels PROF 14(COMP METB)on 022 Albumin [Mass/Vol] 3.7 g/dL Normal 3.4-5.0 [facility] Comment on above: Performed By: #### C MP #### [facility] [address] [place] [address] Dr. Melvi Daniels Albumin/Globulin [Mass ratio] 1.1 {ratio} Normal [facility] Comment on above: Performed By: #### C MP #### [facility] [address] [address] [address] Melvi Daniels ALP [Catalytic activity/Vol] 74 U/L Normal 46-116 [facility] Comment on above: Performed By: #### C MP #### [facility] [address] [address] [address] Melvi Daniels ALT [Catalytic activity/Vol] 31 U/L Normal 14-59 [facility] Comment on above: Performed By: #### C MP #### [facility] [address] [address] [address] Melvi Daniels Anion gap [Moles/Vol] 9.4 mmol/L Normal [facility] Comment on above: Performed By: #### C MP #### [facility] [address] [address] [address] Melvi Daniels AST [Catalytic activity/Vol] 11 U/L Critically low 15-37 [facility] Comment on above: Performed By: #### C MP #### [facility] [address] [address] [address] Melvi Daniels Bilirubin [Mass/Vol] 0.3 mg/dL Normal 0.2-1.0 [facility] Comment on above: Performed By: #### C MP #### [facility] [address] [address] [address] Melvi Daniels Calcium [Mass/Vol] 8.8 mg/dL Normal 8.5-10.1 [facility] Comment on above: Performed By: #### C MP #### [facility] [address] [address] [address] Melvi Daniels Chloride [Moles/Vol] 102 mmol/L Normal 98-107 [facility] Comment on above: Performed By: #### C MP #### [facility] [address] [address] [address] Melvi Daniels CO2 [Moles/Vol] 31.6 mmol/L Normal 21.0-32.0 [facility] Comment on above: Performed By: #### C MP #### [facility] [address] [address] [address] Melvi Daniels Creatinine [Mass/Vol] 1.28 mg/dL Critically high 0.55-1.02 [facility] Comment on above: Performed By: #### C MP #### [facility] [address] [address] [address] Melvi Daniels EGFR-AF FILIPINO 55 mL/min/1.73m2 Critically low >=60 [facility] Comment on above: Performed By: #### C MP #### [facility] [address] [address] [address] Melvi Daniels EGFR-NON AF FILIPINO 45 mL/min/1.73m2 Critically low >=60 [facility] Comment on above: Performed By: #### C MP #### [facility] [address] [address] [address] Melvi Daniels Globulin (S) [Mass/Vol] 3.4 g/dL Normal [facility] Comment on above: Performed By: #### C MP #### [facility] [address] [address] [address] Melvi Daniels Glucose [Mass/Vol] 103 mg/dL Normal 74-106 [facility] Comment on above: Performed By: #### C MP #### [facility] [address] [address] [address] Melvi Daniels Potassium [Moles/Vol] 4.0 mmol/L Normal 3.5-5.1 [facility] Comment on above: Performed By: #### C MP #### [facility] [address] [address] [address] Melvi Daniels Protein [Mass/Vol] 7.1 g/dL Normal 6.4-8.2 [facility] [place] [facility] Comment on above: Performed By: #### C MP #### [facility] [address] [address] [address] Melvi Daniels Sodium [Moles/Vol] 139 mmol/L Normal 136-145 [facility] [place] [facility] Comment on above: Performed By: #### C MP #### [facility] [address] [place], [place] [address] Dr. Melvi Daniels Urea nitrogen [Mass/Vol] 17.0 mg/dL Normal 7.0-18.0 [facility] Comment on above: Performed By: #### C MP #### [facility] [address] [place], [place] [address] Dr. Melvi Daniels Urea nitrogen/Creatinine [Mass ratio] 13.3 mg/mg Normal [facility] Comment on above: Performed By: #### C MP #### [facility] [address] [place], [place] [address] Dr. Melvi Daniels XR CHEST 1 Von 03-19-2022 XR CHEST 1 V EXAMINATION: XR CHEST 1 V HISTORY: Shortness of breath COMPARISON: Chest x-ray the 11/09/2019 TECHNIQUE: Portable chest FINDINGS: The lung parenchyma is free of consolidation or infiltrate. No pneumothorax or pleural effusion. The cardiac, mediastinal and hilar contours are normal. The visualized osseous structures exhibit no gross abnormality. IMPRESSION: Normal chest x-ray Electronically authenticated by: TREVOR ROSE Date: 2022-03-19 20:57 Normal [facility] XR KNEE LT 4V or >on 022 XR KNEE LT 4V or > EXAM: XR KNEE LT 4V or > HISTORY: Pain post injury. COMPARISON: None FINDINGS: There is no evidence of an acute fracture, subluxation or bony destruction. IMPRESSION: No acute osseous abnormality detected. Electronically authenticated by: LETICIA SAENZ Date: 2022-03-13 13:11 Normal [facility] Covid-19 PCR (CVDTBH)on 02-06 SARS-CoV-2 (COVID-19) RNA TIMMY+probe Ql (Unsp spec) Not detected Normal NOT DETECTED [facility] Comment on above: Result Comment: This test is not yet approved or cleared by the [place] FDA. When there are no FDA-approved or cleared tests available, and other criteria are met, FDA can make tests available under an emergency access mechanism called an Emergency Use Authorization (EUA). The EUA for this test is supported by the [employer] of Health and Human Service's (HHS's) declaration that circumstances exist to justify the emergency use of in vitro diagnostics for the detection and/or diagnosis of the virus that causes COVID-19. This EUA will remain in effect (meaning this test can be used) for the duration of the COVID-19 declaration justifying emergency of IVDs, unless it is terminated or revoked by FDA (after which the test may no longer be used). When diagnostic testing is negative, the possibility of a false negative should be considered in the context of a patient's recent exposures and the presence of clinical signs and symptoms consistent with SARS-CoV-2. Performed By: #### C VDTB #### [facility] [address] [place] [address] Dr. Melvi Daniels PAP ACOG PANEL 2: 30 to 66on 12-12-2021 . . Normal [facility] Comment on above: Result Comment: Perf ormed at: WB Performed By: #### [id number] #### [facility] [address] [place] [address] Dr. Melvi Daniels Age Gdln ACOG Testing -66 Normal [facility] Comment on above: Performed By: #### [id number] #### [facility] [address] [place] [address] Dr. Melvi Daniels DIAGNOSIS: Comment Normal [facility] Comment on above: Result Comment: NEGA TIVE FOR INTRAEPITHELIAL LESION OR MALIGNANCY. Performed at: WB Performed By: #### [id number] #### [facility] [address] [place] [address] Dr. Melvi Daniels HPV Aptima Negative Normal Negative [facility] Comment on above: Result Comment: This nucleic acid amplification test detects fourteen high-risk HPV types (16,18,31,33,35,39,45,51,52,56,58,59,66,68) without differentiation. Performed at: =G Performed By: #### [id number] #### [facility] [address] [place] [address] Dr. Melvi Daniels Methodology: Comment Normal [facility] Comment on above: Result Comment: This liquid based ThinPrep(R) pap test was screened with the use of an image guided system. Performed at: WB Performed By: #### [id number] #### [facility] [address] [address] [address] Melvi Daniels Note: Comment Normal [facility] Comment on above: Result Comment: The Pap smear is a screening test designed to aid in the detection of premalignant and malignant conditions of the uterine cervix. It is not a diagnostic procedure and should not be used as the sole means of detecting cervical cancer. Both false-positive and false-negative reports do occur. . Performed at: WB Performed By: #### [id number] #### [facility] [address] [address] [address] Melvi Daniels Performed by: Comment Normal [facility] Comment on above: Result Comment: Libra Del Rosario, [employer] (ASCP) Performed at: WB Performed By: #### [id number] #### [facility] [address] [place] [address] Dr. Melvi Daniels Specimen adequacy: Comment Normal [facility] Comment on above: Result Comment: Sati sfactory for evaluation. Endocervical and/or squamous metaplastic cells (endocervical component) are present. Performed at: WB Performed By: #### [id number] #### [facility] [address] [address] [address] Melvi Daniels Vital Signs Date Time Vital Sign Value Performing Clinician Naye phillip 10-28-2024 13:48-0400 Body height 149.86 cm [facility] 10-28-2024 13:48-0400 Body mass index (BMI) [Ratio] 43 kg/m2 [facility] 10-28-2024 13:48-0400 Body weight 96.61 kg [facility] 10-28-2024 13:48-0400 Diastolic blood pressure 82 mm[Hg] [facility] 10-28-2024 13:48-0400 Heart rate 75 /min [facility] 10-28-2024 13:48-0400 Systolic blood pressure 122 mm[Hg] [facility] 09-25-2024 12:39-0400 Body height 152.4 cm Gordon Bob MD Work Phone: [facility] 09-25-2024 12:39-0400 Body mass index (BMI) [Ratio] 41.01 kg/m2 Gordon Bob MD Work Phone: [facility] 09-25-2024 12:39-0400 Body weight 95.25 kg Gorodn Bob MD Work Phone: [facility] 07-28-2024 08:37-0500 Body height 149.86 cm [facility] 07-28-2024 08:37-0500 Body mass index (BMI) [Ratio] 42.4 kg/m2 [facility] 07-28-2024 08:37-0500 Body weight 95.25 kg [facility] 07-28-2024 08:37-0500 Diastolic blood pressure 88 mm[Hg] [facility] 07-28-2024 08:37-0500 Heart rate 76 /min [facility] 07-28-2024 08:37-0500 Systolic blood pressure 134 mm[Hg] [facility] 06-23-2024 08:22-0500 Body height 152.4 cm Caroline Galindo MD Work Phone: [facility] 06-23-2024 08:22-0500 Body mass index (BMI) [Ratio] 41.6 kg/m2 Caroline Galindo MD Work Phone: [facility] 06-23-2024 08:22-0500 Body weight 96.62 kg Caroline Galindo MD Work Phone: [facility] 06-23-2024 08:22-0500 Diastolic blood pressure 90 mm[Hg] Caroline Galindo MD Work Phone: [facility] 06-23-2024 08:22-0500 Systolic blood pressure 150 mm[Hg] Caroline Galindo MD Work Phone: [facility] 05-21-2024 15:10-0500 Blood Pressure Location Ari Bowen [facility] 05-21-2024 15:10-0500 Diastolic blood pressure 86 mm[Hg] Ari Sapphirenus [facility] 05-21-2024 15:10-0500 Heart rate 62 /min Ari Sapphirenus [facility] 05-21-2024 15:10-0500 Respiratory rate 16 /min Ari Sapphirenus [facility] 05-21-2024 15:10-0500 SaO2% (BldA) [Mass fraction] 98 % Ari Sapphirenus [facility] 05-21-2024 15:10-0500 Systolic blood pressure 132 mm[Hg] Ari Sapphirenus [facility] 05-19-2024 15:00-0500 Body height 149.9 cm Caroline Galindo MD Work Phone: [facility] 05-19-2024 15:00-0500 Body mass index (BMI) [Ratio] 43.02 kg/m2 Caroline Galindo MD Work Phone: [facility] 05-19-2024 15:00-0500 Body weight 96.62 kg Caroline Galindo MD Work Phone: [facility] 05-19-2024 15:00-0500 Diastolic blood pressure 92 mm[Hg] Caroline Galindo MD Work Phone: [facility] 05-19-2024 15:00-0500 Systolic blood pressure 146 mm[Hg] Caroline Galindo MD Work Phone: [facility] 05-01-2024 14:16-0400 Body height 149.86 cm [facility] 05-01-2024 14:16-0400 Body mass index (BMI) [Ratio] 42.6 kg/m2 [facility] 05-01-2024 14:16-0400 Body weight 95.7 kg [facility] 05-01-2024 14:16-0400 Diastolic blood pressure 80 mm[Hg] [facility] 05-01-2024 14:16-0400 Heart rate 60 /min [facility] 05-01-2024 14:16-0400 SaO2% (BldA) [Mass fraction] 97 % [facility] 05-01-2024 14:16-0400 Systolic blood pressure 132 mm[Hg] [facility] 03-25-2024 13:56-0400 Body height 149.86 cm MD Katy Lawler Work Phone: [facility] 03-25-2024 13:56-0400 Body mass index (BMI) [Ratio] 42.4 kg/m2 MD Katy Lawler Work Phone: [facility] 03-25-2024 13:56-0400 Body weight 95.25 kg MD Katy Lawler Work Phone: [facility] 03-25-2024 13:56-0400 Diastolic blood pressure 85 mm[Hg] MD Katy Lawler Work Phone: [facility] 03-25-2024 13:56-0400 Heart rate 80 /min MD Katy Lawler Work Phone: [facility] 03-25-2024 13:56-0400 SaO2% (BldA) [Mass fraction] 92 % MD Katy Lawler Work Phone: [facility] 03-25-2024 13:56-0400 Systolic blood pressure 139 mm[Hg] MD Katy Lawler Work Phone: [facility] 01-29-2024 11:38-0400 Body height 149.86 cm MD Katy Lawler Work Phone: [facility] 01-29-2024 11:38-0400 Body mass index (BMI) [Ratio] 42 kg/m2 MD Katy Lawler Work Phone: [facility] 01-29-2024 11:38-0400 Body temperature 98.1 [degF] MD Katy Lawler Work Phone: [facility] 01-29-2024 11:38-0400 Body weight 94.34 kg MD Katy Lawler Work Phone: [facility] 01-29-2024 11:38-0400 Diastolic blood pressure 90 mm[Hg] MD Katy Lawler Work Phone: [facility] 01-29-2024 11:38-0400 Heart rate 58 /min MD Katy Lawler Work Phone: [facility] 01-29-2024 11:38-0400 SaO2% (BldA) [Mass fraction] 99 % MD Katy Lawler Work Phone: [facility] 01-29-2024 11:38-0400 Systolic blood pressure 143 mm[Hg] MD Katy Lawler Work Phone: [facility] 12-28-2023 09:39-0400 Diastolic blood pressure 82 mm[Hg] MD Katy Lawler Work Phone: [facility] 12-28-2023 09:39-0400 Heart rate 65 /min MD Katy Lawler Work Phone: [facility] 12-28-2023 09:39-0400 Respiratory rate 16 /min MD Katy Lawler Work Phone: [facility] 12-28-2023 09:39-0400 SaO2% (BldA) [Mass fraction] 95 % MD Katy Lawler Work Phone: [facility] 12-28-2023 09:39-0400 Systolic blood pressure 156 mm[Hg] MD Katy Lawler Work Phone: [facility] 12-28-2023 06:57-0400 Body height 149.86 cm MD Katy Lawler Work Phone: [facility] 12-28-2023 06:57-0400 Body weight 95.25 kg MD Katy Lawler Work Phone: [facility] 10-26-2023 09:37-0400 Body height 149.86 cm [facility] 10-26-2023 09:37-0400 Body mass index (BMI) [Ratio] 41.8 kg/m2 [facility] 10-26-2023 09:37-0400 Body weight 94.06 kg [facility] 10-26-2023 09:37-0400 Diastolic blood pressure 82 mm[Hg] [facility] 10-26-2023 09:37-0400 Heart rate 60 /min [facility] 10-26-2023 09:37-0400 Systolic blood pressure 124 mm[Hg] [facility] 09-19-2022 16:30-0400 Body height 149.86 cm Katy Lawler Other [facility] [employer] Other 09-19-2022 16:30-0400 Body mass index (BMI) [Ratio] 42.41 kg/m2 Katy Lawler Other [employer] [facility] [employer] Other 09-19-2022 16:30-0400 Body weight 95.26 kg Katy Lawler Other [employer] Other 09-19-2022 16:30-0400 Diastolic blood pressure 72 mm[Hg] Katy Lawler Other [employer] Other 09-19-2022 16:30-0400 SaO2% (BldA) [Mass fraction] 99 % Katy Lawler Other [employer] Other 09-19-2022 16:30-0400 Systolic blood pressure 124 mm[Hg] Kayt Lawler Other [facility] [employer] Other 07-21-2022 16:15-0500 Blood Pressure Location Ever Mccoy [facility] 07-21-2022 16:15-0500 Diastolic blood pressure 82 mm[Hg] Ever Mccoy [facility] 07-21-2022 16:15-0500 Heart rate 76 /min Ever Christ[facility]erson [facility] 07-21-2022 16:15-0500 Respiratory rate 18 /min Ever Christofferson [facility] 07-21-2022 16:15-0500 SaO2% (BldA) [Mass fraction] 97 % Ever Christofferson [facility] 07-21-2022 16:15-0500 Systolic blood pressure 130 mm[Hg] Ever [facility]offerson [facility] 07-05-2022 14:49-0500 Diastolic blood pressure 90 mm[Hg] Ever [facility]off[facility] 07-05-2022 14:49-0500 Mean blood pressure 109 mm[Hg] Ever Christofferson [facility] 07-05-2022 14:49-0500 Systolic blood pressure 148 mm[Hg] Ever Christofferson [facility] 07-05-2022 14:34-0500 Blood Pressure Location Ever Christofferson [facility] 07-05-2022 14:34-0500 Diastolic blood pressure 90 mm[Hg] Ever [facility]offerson [facility] 07-05-2022 14:34-0500 Heart rate 78 /min Ever [facility] 07-05-2022 14:34-0500 Respiratory rate 18 /min Ever [facility]off[facility] 07-05-2022 14:34-0500 SaO2% (BldA) [Mass fraction] 94 % Ever [facility]offerson [facility] 07-05-2022 14:34-0500 Systolic blood pressure 150 mm[Hg] Ever [facility]offerson [facility] 07-05-2022 13:57-0500 Heart rate 67 /min Alfredo Brown [facility] 07-05-2022 13:57-0500 SaO2% (BldA) [Mass fraction] 94 % Alfredo Brown [facility] 07-05-2022 13:57-0500 Respiratory rate 18 /min Alfredo Brown [facility] 07-05-2022 13:57-0500 Diastolic blood pressure 82 mm[Hg] Alfredo Brown [facility] 07-05-2022 13:57-0500 Mean blood pressure 102 mm[Hg] Alfredo Brown [facility] 07-05-2022 13:57-0500 Systolic blood pressure 144 mm[Hg] Alfredo Brown [facility] 07-05-2022 11:55-0500 Heart rate 74 /min Alfredo Brown [facility] 07-05-2022 11:55-0500 SaO2% (BldA) [Mass fraction] 94 % Alfredo Brown [facility] 07-05-2022 11:54-0500 Respiratory rate 18 /min Alfredo Brown [facility] 07-05-2022 11:54-0500 Diastolic blood pressure 94 mm[Hg] Alfredo Brown [facility] 07-05-2022 11:54-0500 Mean blood pressure 110 mm[Hg] Alfredo Brown [facility] 07-05-2022 11:54-0500 Systolic blood pressure 141 mm[Hg] Alfredo Brown [facility] 07-05-2022 10:47-0500 Heart rate 65 /min Alfredo Brown [facility] 07-05-2022 10:47-0500 SaO2% (BldA) [Mass fraction] 97 % Alfredo Pompa [facility] 07-05-2022 10:47-0500 Respiratory rate 18 /min Alfredo Pompa [facility] 07-05-2022 10:46-0500 Diastolic blood pressure 78 mm[Hg] Alfredo Pompa [facility] 07-05-2022 10:46-0500 Mean blood pressure 93 mm[Hg] Alfredo Pompa [facility] 07-05-2022 10:46-0500 Systolic blood pressure 124 mm[Hg] Alfredo Pompa [facility] 07-05-2022 10:35-0500 Body temperature 97.7 [degF] Alfredo Pompa [facility] 07-05-2022 10:35-0500 Respiratory rate 19 /min Alfredo Pompa [facility] 07-05-2022 10:30-0500 Respiratory rate 15 /min Alfredo Pompa [facility] 07-05-2022 10:25-0500 Respiratory rate 19 /min Alfredo Pompa [facility] 07-05-2022 10:10-0500 Body temperature 97.7 [degF] Alfredo Pompa [facility] 07-05-2022 07:34-0500 Blood Pressure Location Alfredo Pompa [facility] 07-05-2022 07:34-0500 Heart rate 72 /min Alfredo Pompa [facility] 07-05-2022 07:32-0500 Body temperature 97.88 [degF] Alfredo Pompa [facility] 07-05-2022 07:32-0500 Blood Pressure Location Alfredo Pompa [facility] 06-27-2022 10:44-0500 Diastolic blood pressure 87 mm[Hg] Alfredo Pompa [facility] 06-27-2022 10:44-0500 Heart rate 74 /min Alfredo Pompa [facility] 06-27-2022 10:44-0500 Mean blood pressure 104 mm[Hg] Alfredo Pompa [facility] 06-27-2022 10:44-0500 Systolic blood pressure 138 mm[Hg] Alfredo Pompa [facility] 06-27-2022 10:43-0500 Heart rate 77 /min Alfredo Pompa [facility] 06-27-2022 10:43-0500 SaO2% (BldA) [Mass fraction] 97 % Alfredo Pompa [facility] 06-27-2022 10:43-0500 Diastolic blood pressure 87 mm[Hg] Alfredo Pompa [facility] 06-27-2022 10:43-0500 Mean blood pressure 106 mm[Hg] Alfredo Pompa [facility] 06-27-2022 10:43-0500 Systolic blood pressure 144 mm[Hg] Alfredo Pompa [facility] 02-19-2022 11:25-0400 Body height 149.86 cm Kimmy Alonzo Other [employer] Other 02-19-2022 11:25-0400 Body mass index (BMI) [Ratio] 40.39 kg/m2 Kimmy Alonzo Other [employer] Other 02-19-2022 11:25-0400 Body temperature 98.2 [degF] Kimmy Alonzo Other [employer] Other 02-19-2022 11:25-0400 Body weight 90.72 kg Kimmy Alonzo Other [employer] Other 02-19-2022 11:25-0400 Respiratory rate 18 /min Kimmy Alonzo Other [employer] Other 02-19-2022 11:25-0400 SaO2% (BldA) [Mass fraction] 97 % Kimmy Alonzo Other [employer] Other Encounters Encounter Date Encounter Type Care Provider Facility Start: 10-28-2024 End: 10-28-2024 ambulatory [facility] Work Phone: Start: 10-28-2024 End: 10-28-2024 Patient encounter procedure [facility] Work Phone: Start: 09-25-2024 End: 09-25-2024 Office consultation new/estab patient 40 min Gordon Bob MD Work Phone: [facility] Comment on above: Deviated nasal septu m (Primary Dx); Nasal obstruction; Nasal deformity; Deviated septum; Nasal congestion; Swelling of nose; Hypertrophy of inferior nasal turbinate; Nasal alar collapse; Sleep-disordered breathing; Difficulty breathing Start: 09-25-2024 End: 09-25-2024 ambulatory GORDON BOB [facility] Start: 07-28-2024 End: 07-28-2024 Departed Referred Katy Lawler MD Work Phone: [facility] [place] Work Phone: Start: 07-28-2024 End: 07-28-2024 ambulatory Katy Lawler MD Work Phone: [facility] Work Phone: Start: 07-28-2024 End: 07-28-2024 Patient encounter procedure [facility] Work Phone: Start: 06-23-2024 End: 06-23-2024 Bamboo flowsheet Caroline Galindo MD Work Phone: [facility] Start: 06-23-2024 End: 06-23-2024 Bamboo flowsheet Caroline Galindo MD Work Phone: [facility] Start: 06-23-2024 End: 06-23-2024 Office outpatient visit 15 minutes Caroline Galindo MD Work Phone: [facility] Comment on above: Nasal obstruction (P rimary Dx) Start: 06-23-2024 End: 06-23-2024 ambulatory CAROLINE GALINDO Not Available Start: 06-06-2024 End: 06-06-2024 ambulatory MD Ari Bowen Facility:[facility] Start: 06-06-2024 End: 06-06-2024 Patient encounter procedure Ari Bowen [facility] Start: 05-21-2024 End: 05-21-2024 ambulatory MD Ari Bowen Facility:[facility] Start: 05-21-2024 End: 05-21-2024 Patient encounter procedure Ari Bowen [facility] Start: 05-19-2024 End: 05-19-2024 Office outpatient visit 25 minutes Caroline Galindo MD Work Phone: MILTON LOPES Comment on above: Chronic rhinitis (Pr imary Dx); Chronic pansinusitis Start: 05-19-2024 End: 05-19-2024 ambulatory CAROLINE Hidalgo TIMMIS Not Available Start: 05-19-2024 End: 05-19-2024 Bamboo flowsheet Caroline Galindo MD Work Phone: MILTON LOPES Start: 05-19-2024 End: 05-19-2024 Bamboo flowsheet Caroline Galindo MD Work Phone: [facility] KAYE [facility]OPES Start: 05-01-2024 End: 05-01-2024 ambulatory [facility] Work Phone: Start: 05-01-2024 End: 05-01-2024 Patient encounter procedure [facility] Work Phone: Start: 03-25-2024 End: 03-25-2024 ambulatory MD Katy Lawler Work Phone: [facility] Work Phone: Start: 03-25-2024 End: 03-25-2024 Patient encounter procedure MD Katy Lawler Work Phone: [facility] Work Phone: Start: 03-04-2024 End: 03-04-2024 ambulatory MD Katy Lawler Work Phone: [facility] Work Phone: Start: 03-04-2024 End: 03-04-2024 Patient encounter procedure MD Katy Lawler Work Phone: [facility] Work Phone: Start: 01-29-2024 End: 01-29-2024 ambulatory MD Katy Lawler Work Phone: [facility] Work Phone: Start: 01-29-2024 End: 01-29-2024 Patient encounter procedure MD Katy Lawler Work Phone: [facility] Work Phone: Start: 01-01-2024 Non-patient / Non-visit MD Katy Lawler Work Phone: [facility] Work Phone: Start: 12-28-2023 Non-patient / Non-visit MD Katy Lawler Work Phone: [facility] Work Phone: Start: 12-28-2023 End: 12-28-2023 Admission to same day surgery center MD Katy Lawler Work Phone: [facility] Work Phone: Start: 12-28-2023 End: 12-28-2023 ambulatory MD Katy Lawler Work Phone: [facility] Work Phone: Start: 11-03-2023 Non-patient / Non-visit MD Katy Lawler Work Phone: [facility] Work Phone: Start: 10-26-2023 Patient encounter status [facility] Start: 10-26-2023 End: 10-26-2023 ambulatory [facility] Work Phone: Start: 10-26-2023 End: 10-26-2023 Encounter for general adult medical examination without abnormal findings [facility] Start: 10-26-2023 End: 10-26-2023 Patient encounter procedure [facility] Work Phone: Start: 03-20-2023 End: 03-20-2023 ambulatory Katy Lawler Other [employer] Other Start: 03-20-2023 Telephone encounter Katy Lawler [facility] Start: 01-16-2023 End: 01-16-2023 ambulatory Katy Lawler Other [employer] Other Start: 01-16-2023 Telephone encounter Katy Lawler [facility] Start: 12-28-2022 End: 12-28-2022 ambulatory Katy Lawler Other [employer] Other Start: 12-28-2022 Telephone encounter Katy Lawler [facility] Start: 12-07-2022 End: 12-07-2022 ambulatory Katy Lawler Other [employer] Other Start: 12-07-2022 Telephone encounter Katy aLwler [facility] Start: 11-09-2022 End: 11-09-2022 ambulatory Katy Lawler Other [employer] Other Start: 11-09-2022 Telephone encounter Katy Lawler [facility] Start: 10-25-2022 (Televisit) Televisit Katy Lawler [facility] Start: 10-25-2022 End: 10-25-2022 ambulatory Katy Lawler Other [employer] Other Start: 10-17-2022 End: 10-17-2022 ambulatory Katy Lawler Other [employer] Other Start: 10-17-2022 Telephone encounter Katy Lawler [facility] Start: 10-03-2022 End: 10-04-[address] MI GRAJEDA . Facility:[facility] Start: 09-20-2022 End: 09-21-[address] KATY LAWLER Facility:[facility] Start: 09-19-2022 End: 09-19-2022 ambulatory Katy Lawler Other [employer] Other Start: 09-19-2022 Encounter for genera l adult medical examination without abnormal findings Katy Lawler [facility] Start: 09-19-2022 Periodic preventive med est patient 40-64yrs Katy Lawler [facility] Start: 08-14-2022 End: 08-15-[address] KATY LAWLER Facility:[facility] Start: 08-02-2022 End: 07-21-2022 Patient encounter procedure Ever Mccoy [facility] Start: 07-13-2022 End: 07-13-2022 Patient encounter procedure Ever Mccoy [facility] Start: 07-11-2022 End: 07-11-2022 Patient encounter procedure Ever Mccoy [facility] Start: 07-05-2022 End: 07-05-2022 Patient encounter procedure Ever Mccoy [facility] Start: 07-05-2022 End: 07-05-2022 Admission to same day surgery center Alfredo Sadiq Pompa [facility] Start: 07-05-2022 ambulatory Facility:1 [id number] Start: 06-27-2022 End: 06-27-2022 Patient encounter procedure Alfredo Pompa [facility] Start: 05-15-2022 Adult health examination Katy Lawler Other [employer] Other Start: 05-15-2022 Gynecological examination normal Katy Lawler Other [employer] Other Start: 03-19-2022 End: 03-19-[address] MAMADOU HARRELL Facility:[facility] Start: 03-13-2022 End: 03-13-2022 ambulatory LENORA NOLAN . Facility:[facility] Start: 02-19-2022 End: 02-19-2022 ambulatory Kimmy Alonzo Other [employer] Other Start: 02-19-2022 Office outpatient ne w 30 minutes Kimmy Alonzo [facility] Start: 02-16-2022 End: 02-16-[address] KATY LAWLER Facility:[facility] Start: 12-07-2021 End: 12-07-[address] MI GRAJEDA . Facility:[facility] Start: 11-03-2021 End: 04-28-2022 Patient encounter procedure Caroline Galindo [facility] Procedures Date Procedure Procedure Detail Performing Clinician Start: 09-25-2024 Follow-up visit Follow-up GORDON BOB Start: 12-28-2023 Screening colonoscopy M D Katy Bucky Work Phone: Start: 10-23-2023 Mammography Caroline monahan MD Work Phone: Start: 02-27-2023 Microscopic observat ion [Identifier] in Cervix by Cyto stain Caroline Galindo MD Work Phone: Start: 10-03-2022 Mammography Gordon yuan MD Work Phone: Start: 12-06-2021 Screening for malign ant neoplasm of breast Katy Lawler Other Start: 07-05-2017 Hypertension screening Katy Lawler Other Start: 09-01-2015 General examination of patient Katy Lawler Other Depression screening Katy Lawler Other H/O: hysterectomy Alfredo georges H/O: tubal ligation Alfredo simmons End: 12-06-2021 Hysterectomy Katy Lawler Other Screening for malign ant neoplasm of breast Katy Lawler Other Tonsillectomy Alfredo Pompa Plan of Treatment Date Care Activity Detail Author Start: 2026 Zoster Vaccines (1 of 2) Zoste r Vaccines (1 of 2) [facility] Start: 02-27-2026 Screening for malign ant neoplasm of cervix [facility] Start: 10-22-2024 Screening for malign ant neoplasm of breast Mammogram [facility] Start: 08-12-2024 End: 08-12-2024 Patient encounter procedure 08/12/2024 2:00 PM EST Office Visit [facility] [address] [place] [address] Libra Mullins PA [address] [place] [address] [place] [address] [facility] Start: 07-29-2024 [facility] Start: 06-23-2024 End: 06-23-2024 Patient encounter procedure [facility] MARIANNE Comment on above: Arrived Start: 03-09-2024 COVID-19 Vaccine ( season) COVID-19 Vaccine ( season) [facility] Start: 03-09-2024 Influenza vaccination Influenza Vacc ine (#1) [facility] Start: 12-28-2023 [facility] Start: 10-26-2023 Patient referral [facility] Work Phone: Start: 10-04-2023 Screening for malign ant neoplasm of breast Mammogram [facility] Start: 2006 Screening for malign ant neoplasm of cervix HPV/Cotest [facility] Start: 1998 DTaP/Tdap/Td Vaccine s (1 - Tdap) DTaP/Tdap/Td Vaccines (1 - Tdap) [facility] Start: 1997 Screening for malign ant neoplasm of cervix HPV/Cotest [facility] Start: 1995 Hepatitis B Vaccines (1 of 3 - 19+ 3-dose series) Hepatitis B Vaccines (1 of 3 - 19+ 3-dose series) [facility] Start: 1994 Hepatitis C screening Hepatitis C [facility] Start: 1977 MMR Vaccines (1 of 1 - Standard series) MMR Vaccines (1 of 1 - Standard series) [facility] Start: 1976 HIV screening HIV Screening [facility] Start: 1976 Lipid panel Lipid Panel [facility] Start: 1976 Screening for malign ant neoplasm of colon [facility] Start: 1976 Yearly Adult Physical Yearly Adult P hysical [facility] Chlamydia trachomati s rRNA [Presence] in Cervix by TIMMY with probe detection [facility] Comprehensive metabo lic 2000 panel - Serum or Plasma [facility] Human papilloma viru s 16+18+31+33+35+39+45+51+ 52+56+58+59+66+68 DNA [Presence] in Cervix by Probe with signal amplification [facility] Human papilloma viru s 16+18+31+33+35+39+45+51+ 52+56+58+59+68 DNA [Presence] in Cervix by Probe with signal amplification [facility] Neisseria gonorrhoea e rRNA [Presence] in Cervix by TIMMY with probe detection [facility] Patient Education Colon polyps Hemorrhoids (DC) Know your Meds [facility] Work Phone: Patient referral [facility] Work Phone: [facility] Immunizations Immunization Date Immunization Notes Care Provider Fa cility 05-06-2021 COVID-19 Vaccine Pfi zer - Documentation Purposes Only Katy Lawler Other [facility] 05-10-2020 influenza, injectabl e, quadrivalent, preservative free Caroline Galindo MD Work Phone: [facility] 05-10-2020 influenza virus vaccine, unspecified formulation Caroline Galindo MD Work Phone: [facility] 05-01-2019 influenza, injectabl e, quadrivalent, preservative free Caroline Galindo MD Work Phone: [facility] 05-23-2018 Influenza, injectabl e, Madin Luz Canine Kidney, preservative free, quadrivalent Caroline Galindo MD Work Phone: [facility] 05-25-2017 influenza, injectabl e, quadrivalent, preservative free Caroline Galindo MD Work Phone: [facility] 05-25-2017 tetanus and diphther ia toxoids, adsorbed, preservative free, for adult use (5 Lf of tetanus toxoid and 2 Lf of diphtheria toxoid) Katy Lawler Other [facility] 04-26-2016 tetanus and diphther ia toxoids, adsorbed, preservative free, for adult use (5 Lf of tetanus toxoid and 2 Lf of diphtheria toxoid) Katy Lawler Other [facility] 04-19-2016 influenza, injectabl e, quadrivalent, preservative free Caroline Galindo MD Work Phone: [facility] 03-23-2015 influenza virus vaccine, split virus (incl. purified surface antigen) Katy Lawler Other [employer] Other 03-23-2015 influenza virus vaccine, unspecified formulation [facility] Payers Date Payer Category Payer Self-pay 2020 [facility] [id number] 2020 [facility] Care [facility] [id number] 1976 Unknown [id number] [id number]. 2.356 1976 Unknown [id number]. 2.593 1976 Unknown [id number] 2.16.840.1.365863.3.579. 2.593 1976 Unknown [id number] 2.16.840.1.398198.3.579. 2.593 1976 Unknown [id number] 2.16.840.1.017903.3.579. 2.593 1976 Unknown [id number] 2.16.840.1.476943.3.579. 2.593 1976 Unknown [id number] 2.16.840.1.841533.3.579. 2.593 1976 Unknown [id number] 2.16.840.1.340182.3.579. 2.593 1976 Unknown [id number] 2.16.840.1.994866.3.579. 2.727 1976 Unknown [id number] 2.16.840.1.633811.3.579. 2.727 1976 Unknown [id number] 2.16.840.1.385787.3.579. 2.1259 1976 Unknown [id number] 2.16.840.1.900567.3.579. 2.1259 1976 Unknown [id number] 2.16.840.1.298855.3.579. 2.1244 1959 [facility] [id number] Unknown [id number] [id number]. 2.531 Unknown [id number] [id number]. 2.531 Social History Date Type Detail Facility Tobacco smoking status Unknown if ever sm oked [facility] Start: 05-19-2024 End: 09-25-2024 Sex Assigned At Female [facility] Tobacco smoking status No Smokin g Status Entered [facility] Start: 07-05-2022 End: 12-28-2023 Tobacco smoking status Ex-smoker (finding) [facility] Comment on above: Patient states she q uit 20 years ago. Tobacco smoking status Never [facility] Comment on above: Patient states she q uit 20 years ago. Start: 10-16-2023 Tobacco smoking stat us ILIS Never smoked tobacco (finding) [facility] Start: 1975 Sex Assigned At Female F [facility] Start: 12-17-1997 End: 08-09-1999 History of tobacco use Current smoker [facility] Start: 12-17-1997 End: 08-09-1999 History of tobacco use Cigarette Smoker [facility] Start: 05-19-2024 End: 09-25-2024 Cigarettes smoked current (pack per day) - Reported 0.5 [facility] Start: 05-19-2024 Tobacco use and exposure Smokeless tobacco non-user [facility] Start: 05-19-2024 End: 06-23-2024 Alcoholic beverage intake Current drinker of alcohol (finding) [facility] Start: 02-26-2023 Alcohol Comment monthly, Caffe ine intake: 1-2 cups per day [facility] Start: 1976 Sex assigned at Not on file N [facility] Start: 07-28-2024 End: 10-28-2024 Sex Female (finding) [facility] Start: 09-15-2024 End: 09-25-2024 Exposure to SARS-CoV-2 (event) Not sure [facility] Goals Date Patient Goal Desired Activity /State Functional Status Date Assessment Result Facility 05-21-2024 Functional Status N/A [facility] 07-21-2022 Functional Status No [facility] 07-05-2022 Functional Status No [facility] 06-27-2022 Functional Status No [facility] Clinical Notes 07-21-2019 to 09-25-2024 Gordon Bob MD - 09/25/2024 12:45 PM Liliya Galindo MD - 06/23/2024 8:30 AM Maggie Galindo MD - 05/19/2024 3:20 PM EST Note Date & Type Note Facility 09-25-2024 History of Present illness Narrative Images from the original note were not included. Facial Plastic & Reconstructive Surgery Reason for consult: Nasal obstruction Referring provider: MILTON Reynoso Chief Complaint: Obstructed breathing Previous Otolaryngology Provider: Dr. Galindo Previous documentation for this patient was extensively reviewed including specific reasons for evaluation. Complex nature of complaint and medical issues prompting evaluation for surgical consideration by facial plastic & reconstructive surgeon. Michaelle Hill is a 49 y.o. female with PMHx of JUWAN, JULI on CPAP, stopped breathing? Syncope? for 10-15 seconds prior to left ACL surgery, chronic sinusitis, rhinitis, and nasal airway obstruction, who presents in consultation for the evaluation of Left sided nasal obstruction. Symptoms are constant, present year round, does not fluctuate. It affects the patients ability to sleep, exercise, and is troubling during the day. Symptoms began lifelong ago; Has used daily FLONASE for months ago but stopped consistency due to burning really bad Previous CT/MRI imaging of the nasal cavity and sinuses: NO Previous nasal surgery: NO Trauma history: NO Sleep apnea or snoring history: Both Allergic rhinitis, sinusitis history: Both Smoking: Ex smoker 20 yrs ago Aesthetic concern: No Past Medical History She has no past medical history on file. Surgical History She has no past surgical history on file. Social History She has no history on file for tobacco use, alcohol use, and drug use. Family History No family history on file. Allergies Patient has no allergy information on record. Physical exam General: Well-developed and well-nourished in appearance. Skin: No rashes or concerning lesions on the visible portions of the skin. Eyes: Extraocular movements intact. Visual clarke grossly normal. Ears: Pinna are normal in shape and position. External canals are patent. Oral Cavity/Oropharynx: Dentition is intact. Mucous membranes moist. No masses or lesions. Respiratory: No respiratory distress. Quiet breathing without stertor or stridor. Cardiovascular: Regular rate and rhythm. Warm extremities with equal pulses. Psych: Normal mood and affect. Judgement and insight appropriate. Neuro: Alert and oriented. CN II-XII grossly intact. No focal deficits. Musculoskeletal: Gait intact. Moves all extremities well without apparent deformities. A comprehensive facial exam was performed with the following highlights: Nasal skin type: moderate thickness Internal exam: Septum: deviations present bl Inferior turbinates: hypertrophied bl Nasal valve angle: reduced left > right with dynamic collapse Intranasal examination performed with limited view on anterior rhinoscopy. Procedures: Procedure: Rigid diagnostic nasal endoscopy Surgeon: Gordon Bob MD Anesthesia: None Timeout: Performed Findings: A 0-degree rigid endoscope was passed through the patient's bilateral naris. The first pass was along the floor of the nose to the nasopharynx. The second pass was to the area of the middle meatus. The third pass was to the sphenoethmoidal recess. Septum: Deviation is S shaped with bilateral obstruction approximately 90% without perforations nor synechia. Internal Nasal Valve: Angle is reduced, narrowing the nasal airway bilaterally. Right nasal cavity: Inferior turbinate: 2+ Inferior meatus: Clear, no discharge, no polyps/masses/lesions Middle meatus: Clear, no discharge, no polyps/masses/lesions Left nasal cavity: Inferior turbinate: 2+ Inferior meatus: Clear, no discharge, no polyps/masses/lesions Middle meatus: Clear, no discharge, no polyps/masses/lesions Nasopharynx: Clear, no discharge, no masses/lesions Modified [place] Maneuver: Performed with a cotton tipped applicator, markedly improves breathing bilaterally. Assessment - This patient has a significant mechanical nasal obstruction. The cause is multifactorial with septal deviation with severe internal nasal valve narrowing, turbinate hypertrophy, and static internal nasal valve collapse. There is some dynamic nasal valve collapse as well. Correction of this nasal obstruction will require a septoplasty, repair of nasal valve collapse with structural grafting, and a bilateral turbinate reduction. We discussed the medical necessity of this at length, as well as the risks and limitations of the procedures. All questions were answered. Plan - Recommend reconstructive septoplasty, nasal valve repair with structural grafting, and inferior turbinate reduction with lateralization. Gordon Bob MD Chief Communications Officer Supervisor Yard, Facial Plastic & Reconstructive Surgery P: [phone] ([phone]) F: [phone] documented in this encounter [facility] Work Phone: 06-23-2024 History of Present illness Narrative Subjective Patient ID: Michaelle Hill is a 48 y.o. 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 Resolved Ambulatory Problems Diagnosis Date Noted No Resolved Ambulatory Problems Past Medical History: Diagnosis Date Chronic pharyngitis Cough COVID 06/02/2020 Deviated nasal septum Edema Hypertrophy of inferior nasal turbinate Night sweats Other chronic sinusitis Pleuritic chest pain Sinusitis Sleep apnea 11/28 Social anxiety disorder (CMS/HCC) Past Surgical History: Procedure Laterality Date DILATION AND CURETTAGE OTHER SURGICAL HISTORY T&A age 19 PARTIAL HYSTERECTOMY 2016 TONSILLECTOMY 1995 Allergies Allergen Reactions Cephalexin Hives Other Reaction(s): Swelling of lip, tongue, and throat Diphenhydramine Other Reaction(s): Swelling Cephalosporins Rash Current Outpatient Medications on File Prior to Visit Medication Sig Dispense Refill ALPRAZolam (Xanax) 0.25 MG tablet Take 0.25 mg by mouth cetirizine (ZyrTEC) 10 MG tablet Take 1 tablet (10 mg) by mouth Daily as needed for allergies 30 tablet 11 fluticasone (Flonase) 50 MCG/ACT nasal spray Administer 2 sprays into each nostril Daily Shake gently. Before first use, prime pump. After use, clean tip and replace cap. 48 g 3 hydroCHLOROthiazide (Microzide) 12.5 MG capsule Take 12.5 mg by mouth. ibuprofen (IBU) 800 MG tablet every 8 (eight) hours sertraline (Zoloft) 100 MG tablet Take 100 mg by mouth in the morning. tiZANidine (Zanaflex) 4 MG tablet TAKE 1 TABLET BY MOUTH EVERY 12 HOURS NEEDED FOR MUSCLE SPASTICITY [] amoxicillin-clavulanate (Augmentin) 875-125 MG tablet Take 1 tablet (875 mg) by mouth in the morning and 1 tablet (875 mg) before bedtime. 60 tablet 0 No current facility-administered medications on file prior to visit. Objective Last Recorded Vitals Vitals: 06/23/24 0822 BP: 150/90 ENT Physical Exam Constitutional Appearance: patient appears well-developed, well-nourished and well-groomed, Communication/Voice: communication appropriate for developmental age; vocal quality normal; Nose Internal Nose: nasal septal deviation present; bilateral inferior turbinates with hypertrophy; Nose comments: Positive Pepito maneuver Assessment/Plan Diagnoses and all orders for this visit: Nasal obstruction Michaelle has a multifactorial nasal obstruction, including nasal valve collapse. I believe she'd benefit from surgery to address all the causes. We will arrange for her to see Dr Gordon Bob documented in this encounter [facility] 05-19-2024 History of Present illness Narrative Subjective Patient ID: Michaelle Hill is a 48 y.o. female who presents for Sinusitis Pt reports she has had chronic nasal obstruction, ear fullness. Onset when had Covid Labor Day Weekend. Tx with augmentin 2 weeks and a medrol doesepack that helped. Has been using afrin regularly, believing it is the same as flonase. Last seen in Nov, 2021 and tx with sinus regimen which resolved sx. 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 Resolved Ambulatory Problems Diagnosis Date Noted No Resolved Ambulatory Problems Past Medical History: Diagnosis Date Chronic pharyngitis Cough COVID 06/02/2020 Deviated nasal septum Edema Hypertrophy of inferior nasal turbinate Night sweats Other chronic sinusitis Pleuritic chest pain Sinusitis Sleep apnea 11/28 Social anxiety disorder (CMS/HCC) Past Surgical History: Procedure Laterality Date DILATION AND CURETTAGE OTHER SURGICAL HISTORY T&A age 19 PARTIAL HYSTERECTOMY 2016 TONSILLECTOMY 1995 Allergies Allergen Reactions Cephalexin Hives Other Reaction(s): Swelling of lip, tongue, and throat Diphenhydramine Other Reaction(s): Swelling Cephalosporins Rash Current Outpatient Medications on File Prior to Visit Medication Sig Dispense Refill ALPRAZolam (Xanax) 0.25 MG tablet Take 0.25 mg by mouth fluticasone (Flonase) 50 MCG/ACT nasal spray USE 2 SPRAYS IN EACH NOSTRIL DAILY FOR 30 DAYS for 90 hydroCHLOROthiazide (Microzide) 12.5 MG capsule Take 12.5 mg by mouth. ibuprofen (IBU) 800 MG tablet every 8 (eight) hours sertraline (Zoloft) 100 MG tablet Take 100 mg by mouth in the morning. tiZANidine (Zanaflex) 4 MG tablet TAKE 1 TABLET BY MOUTH EVERY 12 HOURS NEEDED FOR MUSCLE SPASTICITY [DISCONTINUED] cetirizine (ZyrTEC) 10 MG tablet TAKE 1 TABLET BY MOUTH EVERY DAY NEEDED FOR 30 DAYS for 30 [DISCONTINUED] estradiol (Estrace) 0.5 MG tablet Take 1 tablet (0.5 mg) by mouth in the morning. 90 tablet 3 No current facility-administered medications on file prior to visit. Objective Last Recorded Vitals Vitals: 05/19/24 1500 BP: (!) 146/92 ENT Physical Exam Nose Internal Nose: nasal septal deviation present; Assessment/Plan Diagnoses and all orders for this visit: Chronic rhinitis Chronic pansinusitis Pt has chronic rhinitis ans sinusitis after covid exacerbated by rhinitis medicamentosa. She has responded well to an aggressive one month sinus regimen in the past. I will start that regimen and modify by using hypertonic saline. Stopp afrin one day after starting steroids. documented in this encounter [facility] 05-01-2024 Evaluation note Diagnosis Onset Date Resolution Palpitations acute April 1:40pm Sinusitis, acute maxillary acute May 01 1:40pm [facility] Work Phone: 1(679) 106-818610-24-2024 Evaluation note* Diagnosis Onset Date Resolution Status Admit Date Palpitations acute April 1:40pm Sinusitis, acute maxillary inactive May 01, 2024 1:40pm Anxiety and depression acute Ja nuary 2024 8:34am Essential (primary) hypertension acute July 28 8:34am Well woman exam acute July 102024 8:34am [facility] Work Phone: 1(660) 142-801006-21-2024 History and physical note Author Jennifer Akers [facility] December 28, 2023 8:20am Note Date/Time December 28, 2023 8:20 am [facility] [address] [place] [address] Gastroenterology H&P Signed Patient: Michaelle Hill MR#: [id number] : 1975 Acct:[id number] Age/Sex: 48 / F Adm Date: 4 Loc: Room: Type: [facility] Attending Dr: Jennifer Akers DO Copies to: DO Katy Moctezuma MD~ Date of Service: 12/28/2023 HISTORY & PHYSICAL: Patient's history with special attention to the cardiovascular, pulmonary systems and the current problem was reviewed with the patient immediately prior to the procedure. Present medications and doses reviewed in the EMR. Allergies and pertinent laboratory tests were also reviewedat this time in the EMR. The physical examination, as below, was then performed. Indication, assessment and HPI: 48-year-old female who presents for screening colonoscopy. She has a family history of colon cancer in a paternal uncle. Shenotes frequent diarrhea. No prior colonoscopy Family history of GI malignancy: Paternal uncle with colon cancer PHYSICAL EXAMINATION General appearance: cooperative, NAD Skin: No jaundice, no rash or lesions Head: NCAT Eyes: Anicteric Neck: Supple Lungs: Normal respiratory effort, no use of accessory muscles Abdomen: Soft, nondistended Neuro: No focal deficits, Ox3. REVIEW OF SYSTEMS Constitutional: Denies malaise, fevers Cardiovascular: Denies chest pain, palpitations Respiratory: Denies shortness of breath, wheezing Gastrointestinal: As per HPI Genitourinary: Denies dysuria, polyuria Musculoskeletal: Denies joint swelling, joint stiffness Neurological: Denies confusion, numbness, tingling Endocrine: Denies fatigue Written informed consent obtained from the patient. Risks (including but not limited to perforation, infection, bloating, bleeding, need for emergent surgeryand loss of life), benefits and alternatives explained and questions answered. The patient verbalized understanding. Based on history patient is an appropriate candidate for the procedure. Jennifer Akers DO Documented By: Jennifer Akers DO 12/28/23 0819 Signed By: <Electronically signed by Jennifer Akers DO> 12/28/23 0820 [facility] Work Phone: 1(977) 304-332106-21-2024 [facility]* Encounter Date Diagnosis Assessment Notes Treatment Notes Treatment Clinical Notes Jan, Generalized anxiety disorder (ICD-10 - F41.1) [employer] Other 04-19-2023 Evaluation note* Encounter Date Diagnosis Assessment Notes Treatment Notes Treatment Clinical Notes Oct, Acute non-recurrent maxillary sinusitis (ICD-10 - J01.00) Sinus infections can be triggered by a secondary infection from a viral URI or even seasonal allergies. Take medications as directed. Use saline nasal spray prior to presciption nasal spray. Take medications as directed, and complete all doses of medication even if you start to feel better. Patient advised to follow up with PCP if symptoms persist or worsen. Patient verbalized understanding and agreement with treatment plan. [employer] Other 04-11-2023 Evaluation note* Encounter Date Diagnosis Assessment Notes Treatment Notes Treatment Clinical Notes Oct, Class 3 obesity (ICD-10 - E66.01) [employer] Other 03-14-2023 Evaluation note* Encounter Date Diagnosis Assessment Notes Treatment Notes Treatment Clinical Notes Sep, Wellness examination (ICD-10 - Z00.00) general topics regarding health education were discussed in detail. All preventative issues were discussed including remaining a nonsmoker, colorectal screening, the importance of proper sleep for brain health maintenance, maintaining a heart-healthy balanced diet, recognizing and addressing signs of anxiety and depression, maintaining positive relationships with family and friends. Sep, Body mass index [BMI] 40.0-44.9, adult (ICD-10 - Z68.41) importance of weight loss was addressed. Sep, Class 3 obesity (ICD-10 - E66.01) weight loss recommended [facility] [employer] Other [id number] Hospital Discharge instructions Patient Education 07/05/2022 12:22:19 Post Op Patient Instructions - FT (Custom) (CUSTOM) [facility]12-28-2022 Evaluation + Plan note Future Scheduled Tests Radiology* Echo Transthoracic Complete 07/05/[address] [facility]08-14-2022 Evaluation note* Encounter Date Diagnosis Assessment Notes Treatment Notes Treatment Clinical Notes Feb, Upper respiratory infection with cough and congestion (ICD-10 - J06.9) Patient declines/refuses testing at this time. Advised patient that there are no red flag symptoms on exam. Lung clarke clear. She may continue previous rx medications. Advised to follow up with PCP if no improvement after courses of medication are complete. Immediate evaluation in ER for warning signs/symptoms as discussed. Patient verbalizes understanding and is agreeable with treatment plan [facility] [employer] Other 01-13-2020 Evaluation + Plan note Future Appointments Appointment Date:07/13/2022 08:00:00 AM Scheduled [facility]: [facility] Type:[facility] Echo (FT) Appointment Date:07/21/2022 04:30:00 PM Scheduled Provider:Ever Mccoy MD [facility]:Cardiology Follow Up (FT) Future Scheduled Tests Radiology* Echo Transthoracic Complete 07/13/[address] [facility] [address] No data available for this section [facility] Future Appointments Appointment Date:07/05/2022 10:30:00 AM Scheduled Provider: Location:[facility] Appointment Type:[facility]gery FT [facility] Future Appointments Appointment Date:07/21/2022 04:30:00 PM Scheduled Provider:Ever Mccoy MD Location[facility] Appointment Type:Cardiology Follow Up (FT[facility] Future Appointments Appointment Date:06/06/2024 09:00:00 AM Scheduled Provider: [facility] Type:CV Holter/Event (FT) [facility] Evaluation noteNo InformationN[facility]Select [facility] [employer] Other Evaluation note* Diagnosis Onset Date Resolution Status Class 3 severe obesity with body mass index (BMI) of 40.0 to 44.9 in adult acute Screening for colon cancer a cute Wellness examination acute [facility] Work Phone: Evaluation note* Diagnosis Onset Date Resolution Status Class 3 severe obesity with body mass index (BMI) of 40.0 to 44.9 in adult acute Generalized anxiety disorder acute Screening for colon cancer a cute Wellness examination acute [facility] Work Phone: Evaluation noteNo assessment information available [facility] Work Phone: evaluation note* Diagnosis Onset Date Resolution Status [facility], [facility] Work Phone: evaluation note* Diagnosis Onset Date Resolution Status Sinusitis, acute maxillary a cute Sinusitis, acute maxillary a cute [facility] Work Phone: Evaluation note* Diagnosis Onset Date Resolution Status Sinusitis, acute maxillary a cute Post-nasal drainage acute [facility] Work Phone: Evaluation note* Diagnosis Chronic rhinitis- Primary Chronic pansinusitis Other chronic sinusitis [facility] Diagnosis Nasal obstruction- Primary Other diseases of nasal cavity and sinuses [facility] Diagnosis Deviated nasal septum- Primary Nasal obstruction Other diseases of nasal cavity and sinuses Nasal deformity Acquired deformity of nose Deviated septum Deviated nasal septum Nasal congestion Other diseases of nasal cavity and sinuses Swelling of nose Hypertrophy of inferior nasal turbinate Nasal alar collapse Sleep-disordered breathing Other sleep disturbances Difficulty breathing Other dyspnea and respiratory abnormality documented in this encounter [facility] Work Phone: [facility] general Narrative - Reported* Type Description Date Surgical History hysterectomy Surgical History tonsillectomy Hospitalization History see above [facility] Other [facility] general Narrative - Reported* Type Description Date Medical History hypertension Medical History chronic left knee pain Medical History LLE edema Medical History diarrheal disease Medical History right eustachian tube dysfunctio n Medical History pleurisy Medical History generalized anxiety Medical History chronic sinusitis Medical History obesity Medical History Tobacco use Medical History BMI 40.0-44.9, adult Medical History Eustachian tube dysfunction, rig ht Medical History Obesity Surgical History hysterectomy Surgical History tonsillectomy Surgical History myosure procedure Surgical History D&C Hospitalization History see above [facility] [employer] Other History general Narrative - [facility]NortSelect [facility] [employer] Other Hospital Discharge instructions No data available for this section [facility] Dis[facility] instructionsAmbulatory Orders* Referral to Gastroenterology Time Frame: 10/26/23, Location: None Selected * Referral to Weight Management Time Frame: 10/26/23, Location: None Selected [facility] Work Phone: Progress note No data available for this section [facility] Summary Purpose Family History Relationship Condition Age at Onset Recorded Date/T roberth father Heart disease Unknown Advance Directives Advance Directive Response Recorded Date/ Time Advance Directives No October 15 10:47am Advance Directive Response Recorded Date/ Time Advance Directives No October 15 9:47am Chief Complaint and Reason for Visit Chief Complaint Wellness Reason for Visit Class 3 severe obesi ty with body mass index (BMI) of 40.0 to 44.9 in adult Screening for colon cancer Wellness examination Chief Complaint Wellness Screening Screening Reason for Visit Class 3 severe obesi ty with body mass index (BMI) of 40.0 to 44.9 in adult Generalized anxiety disorder Screening for colon cancer Wellness examination Chief Complaint Screening Screening Amb Documentation vertigo Chief Complaint Screening Screening Amb Documentation vertigo sore throat , runny nose, ear drainage Reason for Visit Sinusitis, acute max illary Chief Complaint Screening Screening Amb Documentation vertigo sore throat , runny nose, ear drainage cough, chest congestion Reason for Visit Sinusitis, acute max illary Sinusitis, acute maxillary Chief Complaint sore throat , runny nose, ear drainage cough, chest congestion palpitations Reason for Visit Sinusitis, acute max illary Post-nasal drainage Chief Complaint Admit Date palpitations May 01, 2024 1 :40pm wellness, pap July 28, 2024 8 :34am Reason for Visit Admit Date Palpitations May 01, 2024 1 :40pm Sinusitis, acute maxillary May 01, 2024 1:40pm Chief Complaint Admit Date palpitations May 01, 2024 1 :40pm wellness, pap July 28, 2024 8 :34am Z01.419 July 28, 2024 9 :00am Reason for Visit Admit Date Palpitations May 01, 2024 1 :40pm Sinusitis, acute maxillary May 01, 2024 1:40pm Anxiety and depression July 28 8:34am Essential (primary) hypertension July 28, 2024 8:34am Well woman exam July 28, 2024 8 :34am Chief Complaint Admit Date Headaches October 28, 2024 1:4 1pm Additional Source Comments REASON FOR VISIT (unrecogniz ed section and content) Reason Comments Sinusitis Reason Comments Sinusitis 1 mo check sinus Reason Comments Follow-up INFORMATION SOURCE (unrecogn ized section and content) DATE CREATED AUTHOR 05/16/2022 [facility] dical Specialist DATE CREATED AUTHOR AUTHOR'S ORGANIZ ATION 08/12/2022 [facility] ical Center DATE CREATED AUTHOR AUTHOR'S ORGANIZ ATION 10/12/2022 [facility] DATE CREATED AUTHOR AUTHOR'S ORGANIZ ATION 06/23/2024 [employer] [facility] DATE CREATED AUTHOR AUTHOR'S ORGANIZ ATION 06/24/2024 [facility] dical Specialists EPIC DATE CREATED AUTHOR AUTHOR'S ORGANIZ ATION 08/08/2024 [facility] ysician [facility] DATE CREATED AUTHOR AUTHOR'S ORGANIZ ATION 10/01/2024 [facility] Ambulatory Patient Care team informatio n (unrecognized section and content) Team Status: Active Member Role Status Dates Katy Lawler MD Primary Care Provider Active Team Status: Inactive Member Role Status Dates Katy Lawler MD Primary Care Provider Active Start: December 28, 2023 End: December 28, 2023 Jennifer Akers DO Attending Provider Active St art: December 28, 2023 End: December 28, 2023 Team Status: Active Member Role Status Dates Katy Lawler MD Primary Care Provider Active Start: December 28, 2023 Jennifer Akers DO Attending Provider, Other Provider Active Start: December 28, 2023 Team Status: Active Member Role Status Dates Katy Lawler MD Primary Care Provider Active Start: January 01, 2024 Lauryn Johnston Attending Provider Active Start: 2023 Team Status: Inactive Member Role Status Dates Katy Lawler MD Primary Care Provide r, Attending Provider Active Start: January 29, 2024 End: January 29, 2024 Team Status: Inactive Member Role Status Dates Katy Lawler MD Primary Care Provide r, Attending Provider Active Start: March 04, 2024 End: March 04, 2024 Team Status: Active Member Role Status Dates Katy Lawler MD Primary Care Provide r, Attending Provider Active Start: November 03, 2023 Team Status: Inactive Member Role Status Dates Katy Lawler MD Primary Care Provide r, Attending Provider Active Start: October 26, 2023 End: October 26, 2023 Team Status: Inactive Member Role Status Dates Katy Lawler MD Primary Care Provide r, Attending Provider Active Start: March 25, 2024 End: March 25, 2024 Team Status: Inactive Member Role Status Dates Katy Lawler MD Primary Care Provide r, Attending Provider Active Start: May 01, 2024 End: May 01, 2024 Heliotherapist Relationship Specialty Start Date End Date Katy Lawler MD [address] [place] [id number] PCP - General Family Medicine 02/27/23 Heliotherapist Relationship Specialty Start Date End Date Katy Lawler MD [address] [place] [phone] PCP - General Family Medicine 02/27/23 Heliotherapist Relationship Specialty Start Date End Date Katy Lawler MD [address] [place] [phone] PCP - General Family Medicine 02/27/23 Heliotherapist Relationship Specialty Start Date End Date Katy Lawler MD [address] [place] [phone] PCP - General Family Medicine 02/27/23 Team Status: Inactive Member Role Status Dates Katy Lawler MD Primary Care Provide r, Attending Provider Active Start: July 28, 2024 End: July 28, 2024 Team Status: Inactive Member Role Status Dates Katy Lawler MD Primary Care Provide r, Attending Provider Active Start: October 28, 2024 End: October 28, 2024 Goals (unrecognized section and content) Goals may be documented in a n alternate section FOR RECORDS PERTAINING TO PATIENTS WHO ARE OR HAVE BEEN ENROLLED IN A CHEMICAL DEPENDENCY/SUBSTANCEABUSE PROGRAM, SOME INFORMATION MAY BE OMITTED. This clinical summary was aggregated from multiple sources. Caution should be exercised in using it in the provision of clinical care. This summary normalizes information from multiple sources, and as a consequence, information in this document may materially change the coding, format and clinical context of patient data. In addition, data may be omitted in some cases. CLINICAL DECISIONS SHOULD BE BASED ON THE PRIMARY CLINICAL RECORDS. [facility]. provides no warranty or guarantee of the accuracy or completeness of information in this document.
--- NOTE | 2024-12-19 10:52 | MM_ITS ---
Patient Name: MICHAELLE MARTIN MR#: [id number] : 1975 Exam Date: 12/19/2024 Ordering Doctor: DR MI GRAJEDA . RADIOLOGY REPORT PROCEDURE: MM TOMOSYNTHESIS SCREENING BI COMPARISON: MM TOMOSYNTHESIS SCREENING BI, 10/23/2023. MG MAMM SCREEN 3D JUSTYNA CAD, 10/03/2022. MG MAMM SCREEN 3D JUSTYNA CAD, 09/30/2021. MG MAMM SCREEN JUSTYNA W CAD, 07/18/2017. INDICATIONS: Screening Calculator Name NCI Breast Cancer Risk Assessment Tool 5 Year Breast Cancer Risk 1.70% Lifetime Breast Cancer Risk 16.90% Personal Breast Cancer No Personal Ovarian Cancer No Treatments None Family Cancers Sister with breast cancer at age 45. LOCATION: [facility] BREAST COMPOSITION: There are scattered areas of fibroglandular density. FINDINGS: RIGHT BREAST: No significant suspicious finding. LEFT BREAST: No significant suspicious finding. DIAGNOSTIC CATEGORY 1--NEGATIVE. RECOMMENDATIONS: ROUTINE MAMMOGRAM AND CLINICAL EVALUATION IN 12 MONTHS. PLEASE NOTE: A NORMAL MAMMOGRAM DOES NOT EXCLUDE THE POSSIBILITY OF BREAST CANCER. A CLINICALLY SUSPICIOUS PALPABLE LUMP SHOULD BE BIOPSIED. Dictated by: Adalid Santiago DO on 12/19/2024 at 14:02 Approved by: Adalid Santiago DO on 12/19/2024 at 14:10
== END 2024-12-19 10:22 | disposition home or self-care (01) ==
LOC: MAMMO 10:21
PROVIDERS: PCP Family Medicine; Visit Provider Obstetrics & Gynecology
DX: Z12.31 Encounter for screening mammogram for malignant neoplasm of breast (principal); Z80.3 Family history of malignant neoplasm of breast
CPT/HCPCS: 77063; 77067

== ENCOUNTER 2025-02-06 10:19 | Outpatient (OUT) | payer BC, SELFPAY ==
--- OUTSIDE RECORDS SUMMARY | 2025-02-04 23:59 | XMS_ITS | Continuity of Care Document ---
Author Organization [facility] Address Unknown Care Team Providers Care Logistics Operations Director Name Role Phone ADDISON LAWLER Primary Care Physician Ivonne Caballero Unavailable Unavailable Amber Messer Unavailable Unavailable Encounter [facility] [id number] Date(s): 02/04/25 - 02/04/[address] [address] Encounter Diagnosis Heart palpitations(Discharge Diagnosis) - 02/04/25 Chest pain(Discharge Diagnosis) - 02/04/25 Discharge Disposition: Home (Routine DC) Attending Physician: Jose Miguel Betancourt PA-C Admitting Physician: Patricio Yee MD Referring Physician: NONE, XXXX Encounter Type: Outpatient Allergies, Adverse Reactions, Alerts Substance Criticality Severity Reaction Reaction Severity Status Benadryl Swelling Active Keflex Swelling of lip , tongue, and throat Active Assessment and Plan Future Appointments Appointment Date:04/03/2025 02:00:00 PM Scheduled Provider:Jose Miguel Betancourt PA-C Location:[facility] [place] Appointment Type:Cardiology Follow Up (FT) Diagnostic Tests Pending * CBC w/ Auto Diff 02/04/25 * Comprehensive Metabolic Panel 02/04/25 * Magnesium Level 02/04/25 * TSH With T4fr Reflex 02/04/25 Medications hydrochlorothiazide 12.5 mg Cap 12.5 mg = 1 cap(s), Oral, Daily, Refills(s) 0, Edema Start Date: 06/27/22 Status: Ordered Repeat number: 1 meclizine 25 mg Tab Refills(s) 0 Start Date: 02/04/25 Status: Ordered Repeat number: 1 omeprazole 20 mg Cap-DR Refills(s) 0 Start Date: 02/04/25 Status: Ordered Repeat number: 1 Xanax 0.25 mg Tab 0.25 mg = 1 tab(s), Oral, Daily, PRN as needed for anxiety, Refills(s) 0, Anxiety Start Date: 06/27/22 Status: Ordered Repeat number: 1 Zoloft 50 mg Tab 50 mg = 1 tab(s), Oral, Daily, Refills(s) 0, Anxiety Start Date: 06/27/22 Status: Ordered Repeat number: 1 Problem List Condition Confirmation Course Effective Dates Status Health St at[facility] Informant Anxiety Confirmed Active Water retention Confirmed Active Generalized anxiety disorder Confirmed Active Obstructive sleep apnea syndrome Confirmed Active Palpitations Confirmed Active Procedures Procedure Date Related Diagnosis Body Site Status H/O: hysterectomy Complet ed H/O: tubal ligation Compl eted Tonsillectomy Completed Social History Social History Type Response Smoking Status Former smoker, quit more than 30 days ago 1 entered on: 02/04/25 Sex Female Sex Representation Female (finding) 1Patient states she quit 20 years ago. Patient Care team information Care Team Personnel Name: ADDISON LAWLER MD Position: FT Physician Member Role: Primary Care Physician Address: [address] [place] [address] Telecom: Name: Ivonne Caballero Position: [employer] Outreach Office Staff Search Member Role: Other Name: Amber Messer Position: [employer]reach [employer] Staff Search Member Role: Other Care Team Related Persons Name: Angelica Manuel Name: [employer] Insurance Providers Guarantor name: [employer] Health Plan Information #: 1 Payer: NA Payer Identifier: [id number] Member Number: [id number] Group Number: NA Subscriber Identifier: [id number] Relationship to Subscriber: Self Coverage Type: PRIVATE HEALTH INSURANCE Coverage Verification Date: 25 Telecom: HUSSEIN Address:
--- OUTSIDE RECORDS SUMMARY | 2025-02-06 10:29 | XMS_ITS | Encounter Summary ---
Author Organization [facility] Address [address] [place] [address] Care Team Providers Care Cafeteria Or Lunchroom Checker Name Role Phone Katy Villarreal MD Primary Care Provider [phone] Encounter Details Date Type Department Care Team (Late st Contact Info) Description 05/20/2024 Orders Only [facility] [address] [place] [address] Jenae Gonzales LPN [address] [address] Social History Tobacco Use Types Packs/Day Years Used Date Smoking Tobacco: Former Cigarettes 0.5 2 0 12/17/1997 - 08/09/1999 Smokeless Tobacco: Never Alcohol Use Standard Drinks/Week Comments Yes 5 [...] Procedure Name Priority Date/Time Associated Diagnosis Comments PAP SMEAR Routine 02/27/2023 12:00 AM EDT documented in this encounter Results * Pap Smear (02/27/2023 12:00 AM EDT) Swab Cervical swab / Unknown us Maryanne Nurse [facility] CYTOLOGY ORDERABLES Final Result EXTERNAL LAB documented in this encounter Visit Diagnoses Not on filedocumented in this encounter Care Teams Cafeteria Or Lunchroom Checker Relationship Specialty Start Date End Date Katy Villarreal MD PCP - General Family Medicine 02/27/23 documented as of this encounter
--- OUTSIDE RECORDS SUMMARY | 2025-02-06 10:29 | XMS_ITS | Encounter Summary ---
Author Organization [facility] Address [address] [place] [address] Care Team Providers Care Personnel Research Scientist Name Role Phone Katy Villarreal MD Primary Care Provider [phone] Encounter Details Date Type Department Care Team (Late st Contact Info) Description 10/23/2023 Clinisync Result Encounter [facility] External Department Unsolicited Matti Madden, DO [address] [facility] [place] [address] Social History Tobacco Use Types [...] EDT Narrative 10/23/2023 3:07 PM EDT The [address] [address] Mammography Report Signed Patient: POP HILL MR#: [id number] : 1975 Acct:[id number] Age/Sex: 48 / F ADM Date: 10/23/23 Loc: MAMMO Attending Dr: Matti Madden D.O. Ordering Physician: Matti Madden D.O. Results: Date of Service: 10/23/23 Follow Up: Procedure(s): MM tomosynthesis screening BI Accession Number(s): [id number] cc: Katy Villarreal M.D.; Matti Madden D.O. Patient Name: POP HILL MR#: [id number] : 1975 Exam Date: 10/23/2023 Ordering Doctor: [...] breast cancer at age 46. LOCATION: [facility] BREAST COMPOSITION: Scattered areas fibroglandular density. [...] Signed By: 10/23/23 1507 DD/ 1506 TD/TT: Hydraulic Engineer: Procedure Note Radiology, Radiologist, - 10/23/2023 [place] [address] Mammography Report Signed Patient: POP HILL MMR#: [id number] : 1975Acct:[id number] Age/Sex: 48 / FADM Date: 10/23/23 Loc: MAMMO Attending Dr: Matti Madden D.O. Ordering Physician: Matti Madden D.O.Results: Date of Service: 10/23/23Follow Up: Procedure(s): MM tomosynthesis screening BI Accession Number(s): [id number] cc: Katy Villarreal M.D.; Matti Madden D.O. Patient Name: POP HILL MR#: [id number] : 1975 Exam Date: 10/23/2023 Ordering Doctor: [...] breast cancer at age 46. LOCATION: [facility] BREAST COMPOSITION: Scattered areas fibroglandular density. [...] M.D. Signed By:10/23/23 1507 DD/ 1506 TD/TT: Hydraulic Engineer: Matti Madden DO [facility] Final Result documented in this encounter Visit Diagnoses Not on filedocumented in this encounter Care Teams Personnel Research Scientist Relationship Specialty Start Date End Date Katy Villarreal MD PCP - General Family Medicine 02/27/23 documented as of this encounter
--- OUTSIDE RECORDS SUMMARY | 2025-02-06 10:30 | XMS_ITS | Clinical Summary ---
Author Organization [facility] Address [address] [place] [address] Phone Care Team Providers Care Landscaping Specialist Name Role Phone Unavailable Primary Care Provider [...] 05/19/2024 Chronic mastoiditis of both sides 05/19/2024 Social History Tobacco Use Types Packs/Day Years [...] Screening 1975 Lipid Panel 1975 Sigmoidoscopy 1975 MMR Vaccines (1 of 1 - Standard series) 1977 Hepatitis C Screening 1994 Hepatitis B Vaccines (1 of 3 - 19+ 3-dose series) 1995 HPV/Cotest 1997 DTaP/Tdap/Td Vaccines (1 - Tdap) 1998 Mammogram 10/04/2023 10/03/2022 Yearly Adult Physical 02/29/2024 02/27/2023 COVID-19 Vaccine ( - season) 2024 Influenza Vaccine (#1) 2025 , 05/01/2019, 05/23/2018, Additional history exists Cervical Cancer [...] patient's age to complete this topic Insurance [facility] Member Subscriber Plan / Payer (Ef fective 2020-Present) Name:Pop Hill Relation to Subscriber:Self Name:Pop Hill Payer ID:[id number] (NAIC) Type:Not on file Address: [id number] [facility]
--- OUTSIDE RECORDS SUMMARY | 2025-02-06 10:30 | XMS_ITS | Encounter Summary ---
Author Organization [facility] Address [address] [facility] [place] [address] Care Team Providers Care Work Order Detailer Name Role Phone Katy Villarreal MD Primary Care Provider [phone] Encounter Details Date Type Department Care Team (Late st Contact Info) Description 02/26/2023 Abstract [facility] [address] [facility] [place] [id number] Libra Mullins PA [address] [facility] [address] [place], [place] [address] Social History Tobacco Use Types Packs/Day Years [...] on filedocumented in this encounter Care Teams Work Order Detailer Relationship Specialty Start Date End Date Katy Villarreal MD PCP - General Family Medicine 02/27/23 documented as of this encounter
--- OUTSIDE RECORDS SUMMARY | 2025-02-06 10:30 | XMS_ITS | Clinical Summary ---
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 Encounters Date Type Department Care Team Description 12/19/2024 Clinisync Result Encounter [facility] External Department Unsolicited Mi Madden DO from Last 3 Months Immunizations Immunization Administration Dates Next Due Influenza, injectable, MDCK, preservative free, quadrivalent 05/23/2018 Influenza, injectable, quadr ivalent, preservative free 05/10/2020,05/01/2019,05/25/2017,2015 Family History Medical History Relation Name Comments COPD Father Laz Butcher Hypertension Father Laz Butcher Stroke Father Laz Butcher Stroke Maternal Grandmother aTty garcia Hypertension Mother Stroke Paternal Grandfather Cancer [...] 1975 FOBT 1975 Sigmoidoscopy 1976 HPV/Cotest 2006 Influenza Vaccine (#1) 2025 , 05/01/2019, 05/23/2018, Additional history exists Mammogram 12/19/2025 12/19/2024, 10/23/2023, 03/02/2023 Cervical Cancer Screening 02/27/2026 Pap Smear 02/27/2026 02/27/2023 Procedures Procedure Name Priority Date/Time Associated Diagnosis Comments MM TOMOSYNTHESIS SCREENING BI 12/19/2024 2:10 PM EDT PAP SMEAR Routine 02/27/2023 12:00 AM EDT from Last 3 Months or Most Recently Relevant to Health Maintenance Results * MM TOMOSYNTHESIS SCREENING BI (12/19/2024 2:10 PM EDT) Anatomical Region Laterality Modality Other 12/19/2024 2:10 PM EDT Narrative 12/19/2024 2:10 [place] [address] Mammography Report Signed Patient: POP MARTIN MR#: [id number] : 1975 Acct:[id number] Age/Sex: 49 / F ADM Date: 12/19/24 Loc: MAMMO Attending Dr: Mi Madden D.O. Ordering Physician: Mi Madden D.O. Results: Date of Service: 12/19/24 Follow Up: Procedure(s): MM tomosynthesis screening BI Accession Number(s): [id number] cc: Katy Villarreal M.D.; Mi Madden D.O. Patient Name: POP MARTIN MR#: [id number] : 1975 Exam Date: 12/19/2024 Ordering Doctor: DR MI MADDEN . RADIOLOGY REPORT PROCEDURE: MM TOMOSYNTHESIS SCREENING BI COMPARISON: MM TOMOSYNTHESIS SCREENING BI, 10/23/2023. MG MAMM SCREEN 3D JUSTYNA CAD, 10/03/2022. MG MAMM SCREEN 3D JUSTYNA CAD, 09/30/2021. MG MAMM SCREEN JUSTYNA W CAD, 07/18/2017. INDICATIONS: Screening Calculator Name NCI Breast Cancer Risk Assessment Tool 5 Year Breast Cancer Risk 1.70% Lifetime Breast Cancer Risk 16.90% Personal Breast Cancer No Personal Ovarian Cancer No Treatments None Family Cancers Sister with breast cancer at age 45. LOCATION: [facility] BREAST COMPOSITION: There are scattered areas of fibroglandular density. FINDINGS: RIGHT BREAST: No significant suspicious finding. LEFT BREAST: No significant suspicious finding. DIAGNOSTIC CATEGORY 1--NEGATIVE. RECOMMENDATIONS: ROUTINE MAMMOGRAM AND CLINICAL EVALUATION IN 12 MONTHS. PLEASE NOTE: A NORMAL MAMMOGRAM DOES NOT EXCLUDE THE POSSIBILITY OF BREAST CANCER. A CLINICALLY SUSPICIOUS PALPABLE LUMP SHOULD BE BIOPSIED. Dictated by: Adalid Santiago DO on 12/19/2024 at 14:02 Approved by: Adalid Santiago DO on 12/19/2024 at 14:10 Dictated By: Adalid Santiago D.O. Signed By: 12/19/24 1410 DD/ 1410 TD/TT: Campus Receptionist: Procedure Note Radiology, Radiologist, MD - 12/19/2024 [place] [address] Mammography Report Signed Patient: POP MARTIN MMR#: [id number] : 1975Acct:[id number] Age/Sex: 49 / FADM Date: 12/19/24 Loc: MAMMO Attending Dr: Mi Madden D.O. Ordering Physician: Mi Madden D.O.Results: Date of Service: 12/19/24Follow Up: Procedure(s): MM tomosynthesis screening BI Accession Number(s): [id number] cc: Katy Villarreal M.D.; Mi Madden D.O. Patient Name: POP MARTIN MR#: [id number] : 1975 Exam Date: 12/19/2024 Ordering Doctor: DR MI MADDEN . RADIOLOGY REPORT PROCEDURE: MM TOMOSYNTHESIS SCREENING BI COMPARISON: MM TOMOSYNTHESIS SCREENING BI, 10/23/2023. MG MAMM [id number] JUSTYNA CAD, 10/03/2022. MG MAMM SCREEN 3D JUSTYNA CAD, 09/30/2021. MG MAMM SCREENBIL W CAD, 07/18/2017. INDICATIONS: Screening Calculator Name NCI Breast Cancer Risk Assessment Tool 5 Year Breast Cancer Risk 1.70% Lifetime Breast Cancer Risk 16.90% Personal Breast Cancer No Personal Ovarian Cancer No Treatments None Family Cancers Sister with breast cancer at age 45. LOCATION: [facility] BREAST COMPOSITION: There are scattered areas of fibroglandulardensity. FINDINGS: RIGHT BREAST: No significant suspicious finding. LEFT BREAST: No significant suspicious finding. DIAGNOSTIC CATEGORY 1--NEGATIVE. RECOMMENDATIONS: ROUTINE MAMMOGRAM AND CLINICAL EVALUATION IN 12 MONTHS. PLEASE NOTE: A NORMAL MAMMOGRAM DOES NOT EXCLUDE THE POSSIBILITY OFBREAST CANCER. A CLINICALLY SUSPICIOUS PALPABLE LUMP SHOULD BE BIOPSIED. Dictated by: Adalid Santiago DO on 12/19/2024 at 14:02 Approved by: Adalid Santiago DO on 12/19/2024 at 14:10 Dictated By: Adalid Santiago D.O. Signed By:12/19/24 1410 DD/ 1410 TD/TT: Campus Receptionist: Mi Madden DO [facility] Final Result * Pap Smear (02/27/2023 12:00 AM EDT) Swab Cervical swab / Unknown Maryanne Nurse [facility] LAB CYTOLOGY ORDERABLES Final Result EXTERNAL LAB from Last 3 Months or Most Recently Relevant to Health Maintenance Insurance BS Care Teams Steel Layer Relationship Specialty Start Date End Date Katy Villarreal MD PCP - General Family Medicine 02/27/23
--- OUTSIDE RECORDS SUMMARY | 2025-02-06 10:40 | XMS_ITS | CCD ---
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 Name Role Phone KATY LAWLER Primary Care Physician Kimmy Alonzo Unavailable Ivonne Caballero Unavailable Unavailable Amber Messer Unavailable Unavailable Katy Lawler Unavailable LENORA BHAKTA Admitting Unavailable BUCKY, DR KATY Amaya Primary Care Unavailable OVIDIO Celeste, LENORA Attending Unavailable OVIDIO Celeste, LENORA Consulting Unavailable FILLETICIA GALLARDO Consulting Unavailable [...] DR STARK Consulting Unavailable LAWLER, DR KATY mAaya Primary Care Unavailable ZIEBER, DR ARAM Gao [...] Care Provider Katy Lawler MD Attending Provider [phone] Katy Lawler Admitting Unavailable Katy Lawler Primary Care Unavailable Katy Lawler Attending Unavailable Ly, Jennifer L Admitting Unavailable Ly, Jennifer L Attending Unavailable Katy Lawler Primary Care Unavailable Unavailable Primary Care Provider UnavailGORDON Hunter Attending Unavailable Katy Lawler MD Primary Care Provider Katy Lawler MD Primary Care Provider Katy Lawler MD Attending Provider [phone] Allergies Allergy Classification Reported Allergen(s) Allergy Type Date of Onset Reaction(s) Facility Cephalosporins (antibiotic) (2 sources) Cephalexin Drug Allergy 12-28-19 24 hives/swelling , Nausea [facility] (19 sources) Cephalexin; Translations: [Cephalexin] Drug Allergy 11-20-19 14 Head and neck swelling (finding) [facility] (9 sources) diphenhydrAMINE; Translations: [diphenhydramine] Drug Allergy Swelling [facility] (1 source) Keflex *CEPHALOSPORINS* Propensity to adverse reactions Unknown [facility] (1 source) Allergies Reconciled Propensity to adverse reactions Unknown [facility] (1 source) patient allergy list reviewed by nurse or physicia Propensity to adverse reactions 09-05-19 14 Comment:Done [facility] (16 sources) Cephalexin; Translations: [cephalexin] Drug Allergy 10-26-19 24 [facility] (17 sources) Cephalosporins (Antibiotic); Translations: [Cephalosporins] Allergy to substance 02-28-20 23 [facility] (6 sources) diphenhydrAMINE Drug Allergy 05-19-20 [facility] (1 source) ALLERGIES NOT ON FILE; Translations: [ALLERGIES NOT ON FILE] Propensity to adverse reactions (disorder) [facility] 3 Repository Medications Current Medications Medication Drug [...] the skin weekly. for 28 Active Augmentin (9 sources) Penicillin-class Antibacterial Start: 05-21-2024 Augmentin Refills(s) [...] 2024 12:00am July 28, 2024 9:43am Zyrtec (10 sources) Histamine-1 Receptor Antagonist Start: 05-21-2024 Zyrtec Refills(s) 0 Start Date: 05/21/24 Status: Ordered Start: 05-19-2024 End: 05-19-2025 take 1 tablet by mouth once daily as needed cetirizine (ZyrTEC) 10 MG tablet Indications: Chronic pansinusitis Take 1 tablet (10 mg) by mouth Daily as needed for allergies 30 tablet 05/19/2024 05/19/2025 Active fluticasone propionate 0.05 mg/actuat metered dose nasal spray (10 sources) Corticosteroid Start: 05-21-2024 take 1 spray(s) nasal route twice daily Flonase 0.05 mg/inh Mcallen 1 spray(s), Nasal, BID, 16 gram, Refill(s) [...] TAKE 1 TABLET BY MOUTH EVERY DAY Complies with drug therapy Start: 09-25-2023 End: 01-02-2024 take 1 tablet [...] christina Active ibuprofen 800 mg oral tablet (6 sources) Nonsteroidal Anti-inflammatory Drug ibuprofen (IBU) 800 MG tablet every 8 (eight) hours Active meclizine hydrochloride 25 mg oral tablet (1 source) Antiemetic Start: 11-07-19 take 1 tablet by mouth twice daily as needed Meclizine 25 mg tablet Active 25 MG PO Twice daily as needed for vertigo November 06, 2024 12:00am 1/2 - 1 bid prn Complies with drug therapy omeprazole 20 mg delayed release oral capsule (1 source) Proton Pump Inhibitor Start: 01-24-20 take 1 capsule by mouth once daily Omeprazole 20 mg capsule,delayed release(DR/EC) Active 20 MG PO Daily January 23, 2025 12:00am Complies with drug therapy predniSONE (4 sources) Start: 05-21-20 predniSONE Refills(s) 0 Start Date: 05/21/24 Status: Ordered Start: 05-19-2024 End: 05-25-2024 take 1 tablet by mouth in the morning predniSONE (Deltasone) 20 MG tablet Indications: Chronic rhinitis Take 1 tablet (20 mg) by mouth in the morning and 1 tablet (20 mg) before bedtime. Do all this for 6 days. 12 tablet 05/19/2024 05/25/2024 Completed/Discontinued Medications Medication Drug Class(es) Dates Sig [...] 06/27/2022 Active azithromycin 250 mg oral tablet (20 sources) Macrolide Antimicrobial Start: 03-04-2024 End: 03-25-2024 [...] (Therapy completed) methylPREDNISolone 4 mg oral tablet (14 sources) Corticosteroid Start: 03-25-2024 End: 05-01-2024 Methylprednisolone [...] DIR for 6 days Semaglutide (Weight Loss) (10 sources) Start: 09-25-2023 End: 10-26-2023 inject 0.75 mL by subcutaneous injection every week Semaglutide (Weight Loss) (Chanellevy) 2.4 mg/0.75 mL pen injector Discontinued MG [...] 3 Milliliter; Provider: Bucky Burns ( ) Semaglutide (Weight Loss) (2 sources) Start: 10-28-2024 End: 11-06-2024 Semaglutide (Weight Loss) (W egovy) 0.25 mg/0.5 mL pen injector Discontinued 0.25 MG SUBCUT every week 2 October 28, 2024 12:00am November 06, 2024 9:23am administer weeks 1 through 4 of therapy Start: 10-28-2024 Semaglutide (W eight Loss) (Wegovy) 0.25 mg/0.5 mL pen injector Active 0.25 MG SUBCUT every week 2 October 28, 2024 12:00am administer weeks 1 through 4 of therapy sertraline 100 mg oral tablet (20 sources) Serotonin Reuptake Inhibitor Start: 04-10-2024 End: 10-27-2024 take 1 tablet by mouth once daily Sertraline 100 mg tablet Discontinued 0 .ROUTE .COMPLEX July 10, 2024 2:16pm October 27, 2024 8:25am TAKE 1 TABLET [...] 06/27/22 Status: Ordered Sertraline HCl A ctive tiZANidine 4 mg oral tablet (16 sources) Central alpha-2 Adrenergic Agonist Start: 08-21-2023 [...] Acute bronchitis; Translations: [Acute bronchitis, unspecified] Onset: 9 Episodic Anxiety disorders (20 sources) Anxiety; Translations: [Generalized anxiety disorder] Onset: 4 06-27-2022 Chronic Cardiac and circulatory congenital anomalies (8 sources) Heart disease; Translations: [Congenital malformation of heart, unspecified] Chronic Cardiac dysrhythmias (7 sources) Palpitations; Translations: [Palpitations] Onset: 7 05-11-2024 Episodic Conditions associated with dizziness or vertigo (7 sources) Cochlear hydrops of right inner ear; 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, right ear] Onset: 4 05-19-2024 Chronic Disorders of teeth and jaw (2 sources) Right temporomandibular joint pain dysfunction syndrome; Translations: [Arthralgia of right temporomandibular joint] 10-31-2024 Episodic Essential hypertension (6 sources) Essential hypertension; Translations: [Essential (primary) hypertension] 07-28-2024 Chronic Fever of unknown origin (1 source) Fever; Translations: [Fever, unspecified] Episodic Joint disorders and dislocations; trauma-related (1 source) 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; Translations: [Other spontaneous disruption of anterior cruciate ligament of left knee] Onset: 4 05-19-2024 Chronic Noninfectious gastroenteritis (1 source) Non-infective enteritis and [...] [Body mass index (BMI) 37.0-37.9, adult] Onset: 8 Chronic Other nutritional; endocrine; and metabolic disorders (11 sources) Severe obesity; Translations: [Morbid (severe) obesity due to excess calories] 10-26-2023 Chronic Other screening for suspected conditions (not mental disorders or infectious disease) (20 sources) Encounter for screening mammogram for malignant neoplasm of breast; Translations: [Encounter for screening for malignant neoplasm of cervix] Onset: Episodic Other skin disorders (1 source) Generalized [...] maxillary sinusitis; Translations: [Chronic maxillary sinusitis] Onset: 9 05-19-2024 Chronic Other upper respiratory infections (20 sources) Acute upper respiratory infection, unspecified; Translations: [Acute maxillary sinusitis, unspecified] Onset: 3 Resolved: 2 Episodic Otitis media and related conditions (8 sources) Bilateral chronic mastoiditis; Translations: [Chronic mastoiditis, bilateral] Onset: 4 05-19-2024 Chronic Otitis media and related conditions (11 sources) Dysfunction of right eustachian tube; Translations: [Other specified disorders of Eustachian tube, right ear] Onset: 4 Episodic Pleurisy; pneumothorax; pulmonary collapse (2 sources) Pleurisy; Translations: [Pleurisy] Onset: 2 Episodic Residual codes; unclassified (4 sources) Obstructive sleep apnea (adult) (pediatric); Translations: [OBSTRUCTIVE SLEEP APNEA] Onset: 3 Chronic Residual codes; unclassified (1 source) Finding related to sleep; Translations: [Sleep apnea, unspecified] 09-30-2024 Chronic Residual codes; unclassified (2 sources) Obstructive sleep apnea syndrome; Translations: [Obstructive sleep apnea (adult) (pediatric)] 10-31-2024 Chronic Residual codes; unclassified (8 sources) Body fluid retention 06-27-2022 Episodic Residual codes; unclassified (8 sources) Tobacco user; Translations: [Tobacco use] Episodic Residual codes; unclassified (1 source) Family history of malignant neoplasm of breast; Translations: [FAMILY HX MALIG NEOPLASM OF BREAST] Onset: 3 Episodic Residual codes; unclassified (1 source) Flushing; Translations: [Flushing] Episodic Residual codes; unclassified (1 source) Family history of diabetes mellitus; Translations: [Family history of diabetes mellitus] Episodic Residual codes; unclassified (1 source) Localized edema; Translations: [Localized edema] Episodic Sprains and strains (8 sources) Sprain of unspecified site of left knee, initial encounter; Translations: [Neck sprain] Onset: 4 05-19-2024 Episodic Thyroid disorders (1 source) Hypothyroidism; Translations: [Hypothyroidism, unspecified] Chronic Unclassified (4 sources) CONTACT W/AND (SUSP) EXPOS COVID-19; Translations: [CONTACT W/AND (SUSP) EXPOS COVID-19] Onset: 2 Past or Other Problems Problem Classification Problem [...] Test Name Value Interpretation Reference Range Facility MM TOMOSYNTHESIS SCREENING B Ion 12-19-2024 [place] [address] Mammography Report Signed Patient: MICHAELLE HILL MR#: [id number] : 1975 Acct:[id number] Age/Sex: 49 / F ADM Date: 12/19/24 Loc: MAMMO Attending Dr: Mi Madden D.O. Ordering Physician: Mi Madden D.O. Results: Date of Service: 12/19/24 Follow Up: Procedure(s): MM tomosynthesis screening BI Accession Number(s): [id number] cc: Katy Lawler M.D.; Mi Madden D.O. Patient Name: MICHAELLE HILL MR#: [id number] : 1975 Exam Date: 12/19/2024 Ordering Doctor: [...] breast cancer at age 46. LOCATION: [facility] BREAST COMPOSITION: There are scattered areas of [...] Signed By: 12/19/24 1410 DD/ 1410 TD/TT: Marketing Analytics Analyst: [facility] Radiology, Radiologist, - 12/19/2024 [place] [address] Mammography Report Signed Patient: MICHAELLE HILL MR#: [id number] : 1975 Acct:[id number] Age/Sex: 49 / F ADM Date: 12/19/24 Loc: MAMMO Attending Dr: Mi Madden D.O. Ordering Physician: Mi Madden D.O. Results: Date of Service: 12/19/24 Follow Up: Procedure(s): MM tomosynthesis screening BI Accession Number(s): [id number] cc: Katy Lawler M.D.; Mi Madden D.O. Patient Name: MICHAELLE HILL MR#: [id number] : 1975 Exam Date: 12/19/2024 Ordering Doctor: [...] breast cancer at age 46. LOCATION: [facility] BREAST COMPOSITION: There are scattered areas of [...] Santiago D.O. Signed By: 12/19/24 1410 DD/ 09 TD/TT: Marketing Analytics Analyst: [facility] Rad[facility] Study observation (narrative) [facility] MM TOMOSYNTHESIS SCREENING B IOrdered By: Radiologist Radiology on 12-19-2024 [facility] Work Phone: Pap IG, CtNg, rfx HPV Aptima on 07-28-2024 PAP Chlamydia TIMMY Negative Normal Negative [facility] Comment on above: Performed By: #### P AP [id number] #### [facility] , PAP Gonococcus Negative Normal Negative [facility] Comment on above: Result Comment: Perf ormed at: - [facility] [id number] Catalyst Recovery Operator: Jazzy Jimenez MD, Phone: [phone] Performed at: = - [facility] [address] [id number] Catalyst Recovery Operator: Jazzy Jimenez MD, Phone: [phone] PERFORMED BY: [facility] [place] [place] [address] PATHOLOGIST CUT OUT PRESS OPERATOR MOISES CROFT M.D. Performed By: #### P AP [id number] #### [facility] , Pap IG Note Normal . [facility] Comment on above: Result Comment: TEST S RESULT FLAG UNITS REF RANGE LAB Clinician Provided Cytology Information No. of containers..01 ThinPrep Vial DIAGNOSIS: 01 NEGATIVE FOR INTRAEPITHELIAL LESION OR MALIGNANCY. THIS SPECIMEN WAS RESCREENED PART OF OUR DIRECTOR PRIVATE PROGRAM. Specimen adequacy: 01 Satisfactory for evaluation. No endocervical component is identified. Performed by: Salena Bledsoe, Residential Program Worker ([facility]) QC reviewed by: Salena Messer, Residential Program Worker . 01 Note: Note 01 The Pap [...] Low,>-Panic High,A-Abnormal,AA-Critical Abnormal Performed at: 01 [facility] [place] [address] Jazzy Jimenez MD, Performed By: #### P AP [id number] #### [facility] , Event Monitoron 06-20-2024 Event [...] BY: Ari Bowen MD ca Dictated: 06/16/2024 [id number] Transcribed: 06/19/2024 Normal [facility] Comment on above: Result Comment: Elec tronically Signed By: Jessi KAHN, Ari Avery\.br\Date and Time Signed: 06/20/24 16:09 EST Heart and Vascular Office/Cl inic Noteon 05-21-2024 Heart and Vascular Office/Clinic [...] ligation, Tonsillectomy. Medications Augmentin Flonase 0.05 mg/inh Mcallen, 1 spray(s), Nasal, BID hydrochlorothiazide 12.5 mg [...] COPD: Father. Stroke: Grandparent and Grandparent. Normal [facility] Comment on above: Result Comment: Elec tronically Signed By: Jessi KAHN, Ari Avery\.br\Date and Time Signed: 05/21/24 15:40 EST Bryant 12-28-2023 L Specimen: [id number] Received: 12/28/23 Status: DANDRE Rodriguez Num: [id number] Spec Type: Surgical Subm Dr: Jennifer Akers DO Tissues: A Colon Biopsy (RT COLON BX) B Colon Biopsy (ASC POLYP) C Colon Biopsy (LT COLON BX) Procedures: HE/6, Gross/Micro L4/3 Age/ Patient Sex Location Account Attending Physician SergioMichaelle M 48/F [id number] Jennifer Akers DO SPEC NUM: [id number] RECD: 12/28/23 STATUS: DANDRE RODRIGUEZ NUM: [id number] SYEDA: 12/28/[address]: Jennifer Akers DO ENTERED: 12/28/[address] [facility] [address]: SPEC TYPE: Surgical DEPT: S ORDERED: [...] tissue fragments ranging from 0.3 x Specimen: [id number] Received: 12/28/23 Status: DANDRE Rodriguez Num: [id number] Spec Type: Surgical Subm Dr: Jennifer Akers DO Tissues: A Colon Biopsy (RT COLON BX) B Colon Biopsy (ASC POLYP) C Colon Biopsy (LT COLON BX) Procedures: HE/6, Gross/Micro L4/3 Patient: Michaelle Hill [id number] (Continued) Specimen: [id number] Received: 12/28/23 (Continued) Gross Description (Continued) Signed (signature on file) Moises Croft MD 12/31/23 1510 Specimen: [id number] Received: 12/28/23 Status: DANDRE Rodriguez Num: [id number] Spec Type: Surgical Subm Dr: Jennifer Akers DO Tissues: A Colon Biopsy (RT COLON BX) B Colon Biopsy (ASC POLYP) C Colon Biopsy (LT COLON BX) Procedures: HE/6, Gross/Micro L4/3 Patient: Michaelle Hill [id number] (Continued) Specimen: [id number] Received: 12/28/23 (Continued) Gross Description (Continued) 0.2 x 0.1 cm to 0.1 x 0.1 x 0.1 cm, entirely submitted in C1. CPT Codes 14026g9 Specimen: [id number] Received: 12/28/23 Status: DANDRE Rodriguez Num: [id number] Spec Type: Surgical Subm Dr: Jennifer Akers DO Tissues: A Colon Biopsy (RT COLON BX) B Colon Biopsy (ASC POLYP) C Colon Biopsy (LT COLON BX) Procedures: HE/6, Gross/Micro L4/3 Patient: Michaelle Hill [id number] (Continued) Signed (signature on file) Moises Croft MD 12/31/23 1510 Normal [facility] Basophils Auto (Bld) [#/Vol] on 11-03-2023 Basophils (Bld) [#/Vol] 0.0 10 3/uL 0.0-0.1 [facility] Basophils/100 WBC Auto (Bld) on 11-03-2023 Basophils/100 WBC (Bld) 0.6 % 0.2-2.0 [facility] Cholesterol in LDL Calc [Mas s/Vol]on 11-03-2023 Cholesterol in LDL [Mass/Vol] 99.0 mg/dL [facility] Comment on above: <100 mg/dl [id number] 0-129 mg/dl NEAR OR ABOVE [id number] mg/dl BORDERLINE [id number] mg/dl HIGH>190 mg/dl VERY HIGH Cholesterol in VLDL Calc [Ma ss/Vol]on 11-03-2023 Cholesterol in VLDL [Mass/Vol] 13.4 mg/dL [facility] Eosinophils/100 WBC Auto (Bl d)on 11-03-2023 Eosinophils/100 WBC (Bld) 1.8 % 0.9-7.0 [facility] Erythrocyte distribution wid th Auto (RBC) [Ratio]on 11-03-2023 Erythrocyte distribution width (RBC) [Ratio] 13.1 % 11.0-15.0 [facility] Estimated glomerular filtrat ion rate (GFR) non- Americanon 11-03-2023 GFR/1.73 sq M.predicted among non-blacks MDRD (S/P/Bld) [Vol rate/Area] mL/min/{1.73_m2} >=60 [facility] Globulin Calc (S) [Mass/Vol] on 11-03-2023 Globulin (S) [Mass/Vol] 4.0 g/dL [facility] Hematocrit Auto (Bld) [Volum e fraction]on 11-03-2023 Hematocrit (Bld) [Volume fraction] 44.6 % 36.0-48.0 [facility] Hemoglobin [Mass/volume] in Bloodon 11-03-2023 Hemoglobin (Bld) [Mass/Vol] 14.5 g/dL 12.0-16.0 [facility] Laboratory - Chemistry and C hemistry - challengeon 11-03-2023 Albumin [Mass/Vol] 3.7 g/dL 3.4-5.0 [facility] ALP [Catalytic activity/Vol] 79 U/L 46-116 [facility] ALT [Catalytic activity/Vol] 37 U/L 14-59 [facility] AST [Catalytic activity/Vol] 18 U/L 15-37 [facility] Bilirubin [Mass/Vol] 0.6 mg/dL 0.2-1.0 [facility] Calcium [Mass/Vol] 9.6 mg/dL 8.5-10.1 [facility] Chloride [Moles/Vol] 101 mmol/L 98-107 [facility] Cholesterol [Mass/Vol] 188 mg/dL <=200 [facility] Cholesterol in HDL [Mass/Vol] 76 mg/dL High 40-60 [facility] Comment on above: > or =60 mg/dl - LOW CARDIOVASCULAR RISK<40 mg/dl - HIGH CARDIOVASCULAR RISK CO2 [Moles/Vol] 31.0 mmol/L 21.0-32.[address] [facility] Creatinine [Mass/Vol] 0.68 mg/dL 0.55-1.02 [facility] GFR/1.73 sq M.predicted MDRD (S/P/Bld) [Vol rate/Area] mL/min/{1.73_m2} >=60 [facility] Glucose [Mass/Vol] 98 mg/dL 74-106 [facility] Potassium [Moles/Vol] 3.9 mmol/L 3.5-5.1 [facility] Protein [Mass/Vol] 7.7 g/dL 6.4-8.2 [facility] Sodium [Moles/Vol] 141 mmol/L 136-145 [facility] Triglyceride [Mass/Vol] 67 mg/dL <=150 [facility] TSH Qn 2.742 m[IU]/L 0.358-3.740 [facility] Urea nitrogen [Mass/Vol] 13.0 mg/dL 7.0-18.0 [facility] Urea nitrogen/Creatinine [Mass ratio] 19.1 mg/mg [facility] Laboratory - Hematology and Cell countson 11-03-2023 Immature granulocytes/100 WBC (Bld) 0.2 % 0.0-0.5 [facility] Leukocytes [#/volume] correc bert for nucleated erythrocytes in Blood by Automated counon 11-03-2023 WBC corrected for nucl RBC Auto (Bld) [#/Vol] 5.0 10 3/uL 4.0-11.0 [facility] Lymphocytes Auto (Bld) [#/Vo l]on 11-03-2023 Lymphocytes (Bld) [#/Vol] 0.8 10 3/uL Low 1.2-3.8 [facility] Lymphocytes/100 WBC Auto (Bl d)on 11-03-2023 Lymphocytes/100 WBC (Bld) 16.2 % Low 20.5-60.0 [facility] MCH Auto (RBC) [Entitic mass ]on 11-03-2023 MCH (RBC) [Entitic mass] 27.9 pg 26.7-34.0 [facility] MCHC Auto (RBC) [Mass/Vol]on 11-03-2023 MCHC (RBC) [Mass/Vol] 32.5 g/dL 29.9-35.2 [facility] MCV Auto (RBC) [Entitic vol] on 11-03-2023 MCV (RBC) [Entitic vol] 85.8 fL 81.0-99.0 [facility] Monocytes Auto (Bld) [#/Vol] on 11-03-2023 Monocytes (Bld) [#/Vol] 0.3 10 3/uL 0.3-0.8 [facility] Monocytes/100 WBC Auto (Bld) on 11-03-2023 Monocytes/100 WBC (Bld) 5.4 % 1.7-12.0 [facility] Neutrophils Auto (Bld) [#/Vo l]on 11-03-2023 Neutrophils (Bld) [#/Vol] 3.8 10 3/uL 1.4-6.5 [facility] Neutrophils/100 WBC Auto (Bl d)on 11-03-2023 Neutrophils/100 WBC (Bld) 75.8 % High 43.0-75.0 [facility] No Panel Informationon 11-02 Eosinophils # (Auto) 0.1 10 3/uL 0.0-0.7 [facility] Immature Granulocyte # (Auto) 0.01 10 3/uL 0.00-0.03 [facility] Platelet mean volume Auto (B ld) [Entitic vol]on 11-03-2023 Platelet mean volume (Bld) [Entitic vol] 10.0 fL 9.5-13.5 [facility] Platelets Auto (Bld) [#/Vol] on 11-03-2023 Platelets (Bld) [#/Vol] 199 10 3/uL 150-450 [facility] RBC Auto (Bld) [#/Vol]on RBC (Bld) [#/Vol] 5.20 10 6/uL 4.20-5.40 [facility] Serum or plasma albumin/glob ulin mass ratioon 11-03-2023 Albumin/Globulin [Mass ratio] 0.9 {ratio} [facility] Serum or plasma anion gap de terminationon 11-03-2023 Anion gap [Moles/Vol] 12.9 mmol/L [facility] Serum or plasma total choles terol/high density lipoprotein (HDL) cholesterol mass laureano 11-03-2023 Cholesterol.total/Chol esterol in HDL [Mass ratio] 2.5 {ratio} [facility] Comment on above: 3.3 - 4.4 LOW RISK4. 4 - 7.1 AVERAGE RISK7.1 - 11.0 MODERATE RISK>11.0 HIGH RISK MG MAMM SCREEN 3D JUSTYNA CADon 10-03-2022 MG MAMM SCREEN 3D JUSTYNA CAD Patient: MICHAELLE HILL Exam Date: 10/03/2022 : 1975 Gender:F Ordering : DR MI MADDEN . Admission #: [id number] Family : Order #: [id number] CLICK HERE TO VIEW EXAM RADIOLOGY REPORT [...] breast cancer at age 46. LOCATION: [facility] BREAST COMPOSITION: Scattered areas fibroglandular density. FINDINGS: [...] M.D. on 10/04/2022 at 07:32 Normal [facility] CHEMISTRYOrdered By: SYSTEM SYSTEM on 06-27-2022 Anion gap [Moles/Vol] 12 mmol/L Normal 6 - 16 mEq/L [facility] Remisol Chloride [Moles/Vol] 102 mmol/L Normal 101 - 1 11 mmol/L [facility] CO2 [Moles/Vol] 27 mmol/L Normal 21 - 31 mmol/L [facility] Creatinine [Mass/Vol] 0.8 mg/dL Normal 0.5 - 1.3 mg/dL [facility] Remisol GFR/1.73 sq M.predicted among blacks MDRD (S/P/Bld) [Vol rate/Area] mL/min/1.73 m2 Normal >=59mL/min/1. 73 m2 [facility] S GFR/1.73 sq M.predicted among non-blacks MDRD (S/P/Bld) [Vol rate/Area] mL/min/1.73 m2 Normal >=59mL/min/1. 73 m2 [facility] S Potassium [Moles/Vol] 4.1 mmol/L Normal 3.5 - 5.3 mmol/L [facility] Sodium [Moles/Vol] 137 mmol/L Normal 135 - 145 mmol/L [facility] Urea nitrogen [Mass/Vol] 16 mg/dL Normal 5 - 21 mg/dL [facility] HEMATOLOGYOrdered By: Chio Sethi on 06-27-2022 Erythrocyte distribution width (RBC) [Ratio] 13.7 % Normal 10.9 - 14.2 % [facility] HemeAutoSS Hematocrit (Bld) [Volume fraction] 41.3 % Normal 34.0 - 46.0 % [facility] HemeAutoSS Hemoglobin (Bld) [Mass/Vol] 13.7 g/dL Normal 12.0 - 16.0 gm/dL [facility] HemeAutoSS MCH (RBC) [Entitic mass] 28.1 pg Normal 27.0 - 34.0 pg [facility] HemeAutoSS MCHC (RBC) [Mass/Vol] 33.2 g/dL Normal 31.4 - 36.0 gm/dL [facility] HemeAutoSS MCV (RBC) [Entitic vol] 84.4 fL Normal 80.0 - 100.0 fL [facility] HemeAutoSS Platelet mean volume (Bld) [Entitic vol] 8.2 fL Normal 6.4 - 10.8 fL [facility] HemeAutoSS Platelets (Bld) [#/Vol] 199.0 E9/L Normal 150.0 - 500.0 E9/L [facility] HemeAutoSS RBC (Bld) [#/Vol] 4.9 E12/L Normal 4.3 - 5.9 E12/L [facility] HemeAutoSS WBC corrected for nucl RBC Auto (Bld) [#/Vol] 5.4 E9/L Normal 4.0 - 11.0 E9/L [facility] HemeAutoSS US Venous, Unilat, Lower Ext Lefton [...] extremity veins. Report reported and signed by Tnio Higgins on 05/15/2022 1756 Normal [facility] MRI Knee w/o Lefton 03-24-20 22 MRI [...] by Leticia Dumont on 03/24/2022 1600 Normal [facility] CBC AUTO DIFFon 03-19-2022 BASO # 0.0 103/ul Normal 0.0-0.1 [facility] Comment on above: Performed By: #### C BC #### [facility] [address] [address] [address] Melvi Daniels Basophils/100 WBC (Bld) 0.4 % Normal 0.2-2.0 [facility] Comment on above: Performed By: #### C BC #### [facility] [address] [address] [address] Melvi Daniels EO # 0.2 103/ul Normal 0.0-0.7 [facility] [facility] Comment on above: Performed By: #### C BC #### [facility] [address] [place] [address] Dr. Melvi Daniels Eosinophils/100 WBC (Bld) 2.1 % Normal 0.9-7.0 [facility] Comment on above: Performed By: #### C BC #### [facility] [address] [place] [address] Dr. Melvi Daniels Erythrocyte distribution width (RBC) [Ratio] 13.5 % Normal 11.0-15.0 [facility] Comment on above: Performed By: #### C BC #### [facility] [address] [place] [address] Dr. Melvi Daniels Hematocrit (Bld) [Volume fraction] 42.3 % Normal 36.0-48.0 [facility] Comment on above: Performed By: #### C BC #### [facility] [address] [place] [address] Dr. Melvi Daniels Hemoglobin (Bld) [Mass/Vol] 13.5 g/dL Normal 12.0-16.0 [facility] Comment on above: Performed By: #### C BC #### [facility] [address] [place] [address] Dr. Melvi Daniels IG # 0.01 10e3/ul Normal 0.00-0.03 [facility] Comment on above: Performed By: #### C BC #### [facility] [address] [place] [address] Dr. Melvi Daniels IG % 0.1 % Normal 0.0-0.5 [facility] Comment on above: Performed By: #### C BC #### [facility] [address] [address] [address] Melvi Daniels LYMPH # 1.1 103/ul Critically low 1.2-3.8 [facility] Comment on above: Performed By: #### C BC #### [facility] [address] [place] [address] Dr. Melvi Daniels Lymphocytes/100 WBC (Bld) 15.1 % Critically low 20.5-60.0 [facility] Comment on above: Performed By: #### C BC #### [facility] [address] [place] [address] Dr. Melvi Daniels MANUAL DIFF REQ NO Normal [facility] Comment on above: Performed By: #### C BC #### [facility] [address] [place] [address] Dr. Melvi Daniels MCH (RBC) [Entitic mass] 27.9 pg Normal 26.7-34.0 [facility] Comment on above: Performed By: #### C BC #### [facility] [address] [place] [address] Dr. Melvi Daniels MCHC (RBC) [Mass/Vol] 31.9 g/dL Normal 29.9-35.2 [facility] Comment on above: Performed By: #### C BC #### [facility] [address] [place] [address] Dr. Melvi Daniels MCV (RBC) [Entitic vol] 87.4 fL Normal 81.0-99.0 [facility] Comment on above: Performed By: #### C BC #### [facility] [address] [place] [address] Dr. Melvi Daniels MONO # 0.4 103/ul Normal 0.3-0.8 [facility] Comment on above: Performed By: #### C BC #### [facility] [address] [place] [address] Dr. Melvi Daniels Monocytes/100 WBC (Bld) 6.0 % Normal 1.7-12.0 [facility] Comment on above: Performed By: #### C BC #### [facility] [address] [place] [address] Dr. Melvi Daniels NEUT # 5.4 103/ul Normal 1.4-6.5 [facility] Comment on above: Performed By: #### C BC #### [facility] [address] [place] [address] Dr. Melvi Daniels Neutrophils/100 WBC (Bld) 76.3 % Critically high 43.0-75.0 [facility] Comment on above: Performed By: #### C BC #### [facility] [address] [place] [address] Dr. Melvi Daniels Platelet mean volume (Bld) [Entitic vol] 9.7 fL Normal 9.5-13.5 [facility] Comment on above: Performed By: #### C BC #### [facility] [address] [place] [address] Dr. Melvi Daniels PLT 188 103/ul Normal 150-450 [facility] Comment on above: Performed By: #### C BC #### [facility] [address] [place] [address] Dr. Melvi Daniels RBC 4.84 106/ul Normal 4.20-5.40 [facility] Comment on above: Performed By: #### C BC #### [facility] [address] [place] [address] Dr. Melvi Daniels WBC 7.0 103/ul Normal 4.0-11.0 [facility] Comment on above: Performed By: #### C BC #### [facility] [address] [place] [address] Dr. Melvi Daniels [facility]19 [facility]09 SARS-CoV-2 (COVID-19) RNA TIMMY+probe Ql (Unsp spec) Not detected Normal NOT DETECTED [facility] Comment on above: Result Comment: When diagnostic [...] for this test is supported by the [place] [employer] of Health and Human Service's declaration that [...] used). Performed By: #### C VDTBH #### [facility] [address] [place] [address] Dr. Melvi Daniels D-DIMERon 03-19-2022 D-DIMER 0.36 mg/L FEU Normal <=0.59 [facility] Comment on above: Performed By: #### D DIM #### [facility] [address] [place] [address] Dr. Melvi Daniels D-DIMER COMMENTS SEE BELOW Normal [facility] Comment on above: Result Comment: [...] hospitalization. Performed By: #### D DIM #### [facility] [address] [place] [address] Dr. Melvi Daniels PROF 14(COMP METB)on 022 Albumin [Mass/Vol] 3.7 g/dL Normal 3.4-5.0 [facility] Comment on above: Performed By: #### C MP #### [facility] [address] [place] [address] Dr. Melvi Daniels Albumin/Globulin [Mass ratio] 1.1 {ratio} Normal [facility] Comment on above: Performed By: #### C MP #### [facility] [address] [address] [address] Melvi Daniels ALP [Catalytic activity/Vol] 74 U/L Normal 46-116 [facility] Comment on above: Performed By: #### C MP #### [facility] [address] [address] [address] Melvi Daniels ALT [Catalytic activity/Vol] 31 U/L Normal 14-59 [facility] Comment on above: Performed By: #### C MP #### [facility] [address] [address] [address] Melvi Daniels Anion gap [Moles/Vol] 9.4 mmol/L Normal [facility] Comment on above: Performed By: #### C MP #### [facility] [address] [place] [address] Dr. Melvi Daniels AST [Catalytic activity/Vol] 11 U/L Critically low 15-37 [facility] Comment on above: Performed By: #### C MP #### [facility] [address] [place] [address] Dr. Melvi Daniels Bilirubin [Mass/Vol] 0.3 mg/dL Normal 0.2-1.0 [facility] Comment on above: Performed By: #### C MP #### [facility] [address] [place] [address] Dr. Melvi Daniels Calcium [Mass/Vol] 8.8 mg/dL Normal 8.5-10.1 [facility] Comment on above: Performed By: #### C MP #### [facility] [address] [place] [address] Dr. Melvi Daniels Chloride [Moles/Vol] 102 mmol/L Normal 98-107 [facility] Comment on above: Performed By: #### C MP #### [facility] [address] [address] [address] Melvi Daniels CO2 [Moles/Vol] 31.6 mmol/L Normal 21.0-32.0 [facility] Comment on above: Performed By: #### C MP #### [facility] [address] [place] [address] Dr. Melvi Daniels Creatinine [Mass/Vol] 1.28 mg/dL Critically high 0.55-1.02 [facility] Comment on above: Performed By: #### C MP #### [facility] [address] [address] [address] Melvi Daniels EGFR-AF AFGHAN 55 mL/min/1.73m2 Critically low >=60 [facility] Comment on above: Performed By: #### C MP #### [facility] [address] [address] [address] Melvi Dnaiels EGFR-NON AF AFGHAN 45 mL/min/1.73m2 Critically low >=60 [facility] Comment on above: Performed By: #### C MP #### [facility] [address] [place] [address] Dr. Melvi Daniels Globulin (S) [Mass/Vol] 3.4 g/dL Normal [facility] Comment on above: Performed By: #### C MP #### [facility] [address] [address] [address] Melvi Daniels Glucose [Mass/Vol] 103 mg/dL Normal 74-106 [facility] Comment on above: Performed By: #### C MP #### [facility] [address] [address] [address] Melvi Daniels Potassium [Moles/Vol] 4.0 mmol/L Normal 3.5-5.1 [facility] Comment on above: Performed By: #### C MP #### [facility] [address] [address] [address] Melvi Daniels Protein [Mass/Vol] 7.1 g/dL Normal 6.4-8.2 [facility] Comment on above: Performed By: #### C MP #### [facility] [address] [address] [address] Melvi Daniels Sodium [Moles/Vol] 139 mmol/L Normal 136-145 [facility] Comment on above: Performed By: #### C MP #### [facility] [address] [address] [address] Melvi Daniels Urea nitrogen [Mass/Vol] 17.0 mg/dL Normal 7.0-18.0 [facility] Comment on above: Performed By: #### C MP #### [facility] [address] [place], [place] [address] Dr. Melvi Daniels Urea nitrogen/Creatinine [Mass ratio] 13.3 mg/mg Normal [facility] Comment on above: Performed By: #### C MP #### [facility] [address] [place], [place] [address] Dr. Melvi Daniels XR CHEST 1 Von [...] TREVOR ROSE Date: 2022-03-19 20:57 Normal [facility] XR KNEE LT 4V or >on 022 XR KNEE LT 4V or > EXAM: XR KNEE LT 4V or > HISTORY: Pain post injury. COMPARISON: None FINDINGS: There is no evidence of an acute fracture, subluxation or bony destruction. IMPRESSION: No acute osseous abnormality detected. Electronically authenticated by: LETICIA SAENZ Date: 2022-03-13 13:11 Normal [facility] Covid-19 PCR (CVDTB)on 02-06 SARS-CoV-2 (COVID-19) RNA TIMMY+probe Ql (Unsp spec) Not detected Normal NOT DETECTED [facility] Comment on above: Result Comment: This test is not yet approved or cleared by the [place] FDA. When there are no FDA-approved or cleared tests available, and other criteria are met, FDA can make tests available under an emergency access mechanism called an Emergency Use Authorization (EUA). The EUA for this test is supported by the [place] of Health and Human Service's (HHS's) declaration [...] consistent with SARS-CoV-2. Performed By: #### C VDTBH #### [facility] [address] [place] [address] Dr. Melvi Daniels PAP ACOG PANEL 2: 30 to 65on 12-12-2021 . . Normal [facility] Comment on above: Result Comment: Perf ormed at: WB Performed By: #### [id number] #### [facility] [address] [place] [address] Dr. Melvi Daniels Age Gdln ACOG Testing 30-65 Normal [facility] Comment on above: Performed By: #### [id number] #### [facility] [address] [place] [address] Dr. Melvi Daniels DIAGNOSIS: Comment Normal [facility] Comment on above: Result Comment: NEGA TIVE FOR INTRAEPITHELIAL LESION OR MALIGNANCY. Performed at: WB Performed By: #### [id number] #### [facility] [address] [place] [address] Dr. Melvi Daniels HPV Aptima Negative Normal Negative [facility] Comment on above: Result Comment: This nucleic acid amplification test detects fourteen high-risk HPV types (16,18,31,33,35,39,45,51,52,56,58,59,66,68) without differentiation. Performed at: =G Performed By: #### [id number] #### [facility] [address] [place] [address] Dr. Melvi Daniels Methodology: Comment Normal [facility] Comment on above: Result Comment: This liquid based ThinPrep(R) pap test was screened with the use of an image guided system. Performed at: WB Performed By: #### [id number] #### [facility] [address] [place] [address] Dr. Melvi Daniels Note: Comment [facility] Comment on above: Result Comment: The Pap smear is a screening test designed to aid in the detection of premalignant and malignant conditions of the uterine cervix. It is not a diagnostic procedure and should not be used as the sole means of detecting cervical cancer. Both false-positive and false-negative reports do occur. . Performed at: WB Performed By: #### [id number] #### [facility] [address] [address] [address] Melvi Daniels Performed by: Comment Normal [facility] Comment on above: Result Comment: Libra Del Rosario, Residential Program Worker (ASCP) Performed at: WB Performed By: #### [id number] #### [facility] [address] [address] [address] Melvi Daniels Specimen adequacy: Comment Normal [facility] Comment on above: Result Comment: Sati sfactory for evaluation. Endocervical and/or squamous metaplastic cells (endocervical component) are present. Performed at: WB Performed By: #### [id number] #### [facility] [address] [address] [address] Melvi Daniels Vital Signs Date Time Vital Sign Value Performing Clinician Faci lity 01-23-2025 11:48-0400 Body height 149.86 cm Katy Lawler MD Work Phone: [facility] 01-23-2025 11:48-0400 Body mass index (BMI) [Ratio] 43.2 kg/m2 Katy Lawler MD Work Phone: [facility] 01-23-2025 11:48-0400 Body weight 97.06 kg Katy Lawler MD Work Phone: [facility] 01-23-2025 11:48-0400 Diastolic blood pressure 84 mm[Hg] Katy Lawler MD Work Phone: [facility] 01-23-2025 11:48-0400 Heart rate 64 /min Katy Lawler MD Work Phone: [facility] 01-23-2025 11:48-0400 Systolic blood pressure 148 mm[Hg] Katy Lawler MD Work Phone: [facility] 10-28-2024 13:48-0400 Body height 149.86 cm [facility] 10-28-2024 13:48-0400 Body mass index (BMI) [Ratio] 43 kg/m2 [facility] 10-28-2024 13:48-0400 Body weight 96.61 kg [facility] 10-28-2024 13:48-0400 Diastolic blood pressure 82 mm[Hg] [facility] 10-28-2024 13:48-0400 Heart rate 75 /min [facility] 10-28-2024 13:48-0400 Systolic blood pressure 122 mm[Hg] [facility] 09-25-2024 12:39-0400 Body height 152.4 cm Gordon Bob MD Work Phone: [facility] 09-25-2024 12:39-0400 Body mass index (BMI) [Ratio] 41.01 kg/m2 Gordon Bob MD Work Phone: [facility] 09-25-2024 12:39-0400 Body weight 95.25 kg Gordon Bob MD Work Phone: [facility] 07-28-2024 08:37-0500 Body height 149.86 cm [facility] 07-28-2024 08:37-0500 Body mass index (BMI) [Ratio] 42.4 kg/m2 [facility] 07-28-2024 08:37-0500 Body weight 95.25 kg [facility] 07-28-2024 08:37-0500 Diastolic blood pressure 88 mm[Hg] [facility] 07-28-2024 08:37-0500 Heart rate 76 /min [facility] 07-28-2024 08:37-0500 Systolic blood pressure 134 mm[Hg] [facility] 06-23-2024 08:22-0500 Body height 152.4 cm aCroline Galindo MD Work Phone: [facility] 06-23-2024 08:22-0500 Body mass index (BMI) [Ratio] 41.6 kg/m2 Caroline Galindo MD Work Phone: [facility] 06-23-2024 08:22-0500 Body weight 96.62 kg Caroline Galindo MD Work Phone: [facility] 06-23-2024 08:22-0500 Diastolic blood pressure 90 mm[Hg] Caroline Galindo MD Work Phone: [facility] 06-23-2024 08:22-0500 Systolic blood pressure 150 mm[Hg] Caroline Galindo MD Work Phone: [facility] 05-21-2024 15:10-0500 Blood Pressure Location [facility] 05-21-2024 15:10-0500 Diastolic blood pressure 86 mm[Hg] [facility] 05-21-2024 15:10-0500 Heart rate 62 /min [facility] 05-21-2024 15:10-0500 Respiratory rate 16 /min [facility] 05-21-2024 15:10-0500 SaO2% (BldA) [Mass fraction] 98 % [facility] 05-21-2024 15:10-0500 Systolic blood pressure 132 mm[Hg] [facility] 05-19-2024 15:00-0500 Body height 149.9 cm Caroline Galindo MD Work Phone: [facility] 05-19-2024 15:00-0500 Body mass index (BMI) [Ratio] 43.02 kg/m2 Caroline Galindo MD Work Phone: [facility] 05-19-2024 15:00-0500 Body weight 96.62 kg Caroline Galindo MD Work Phone: [facility] 05-19-2024 15:00-0500 Diastolic blood pressure 92 mm[Hg] Caroline Galindo MD Work Phone: [facility] 05-19-2024 15:00-0500 Systolic blood pressure 146 mm[Hg] Caroline Galindo MD Work Phone: [facility] 05-01-2024 14:16-0400 Body height 149.86 cm [facility] 05-01-2024 14:16-0400 Body mass index (BMI) [Ratio] 42.6 kg/m2 [facility] 05-01-2024 14:16-0400 Body weight 95.7 kg [facility] 05-01-2024 14:16-0400 Diastolic blood pressure 80 mm[Hg] [facility] 05-01-2024 14:16-0400 Heart rate 60 /min [facility] 05-01-2024 14:16-0400 SaO2% (BldA) [Mass fraction] 97 % [facility] 05-01-2024 14:16-0400 Systolic blood pressure 132 mm[Hg] [facility] 03-25-2024 13:56-0400 Body height 149.86 cm MD Katy Lawler Work Phone: [facility] 03-25-2024 13:56-0400 Body mass index (BMI) [Ratio] 42.4 kg/m2 MD Katy Lawler Work Phone: [facility] 03-25-2024 13:56-0400 Body weight 95.25 kg MD Katy Lawler Work Phone: [facility] 03-25-2024 13:56-0400 Diastolic blood pressure 85 mm[Hg] MD Katy Lawler Work Phone: [facility] 03-25-2024 13:56-0400 Heart rate 80 /min MD Katy Lawler Work Phone: [facility] 03-25-2024 13:56-0400 SaO2% (BldA) [Mass fraction] 92 % MD Katy Lawler Work Phone: [facility] 03-25-2024 13:56-0400 Systolic blood pressure 139 mm[Hg] MD Katy Lawler Work Phone: [facility] 01-29-2024 11:38-0400 Body height 149.86 cm MD Katy Lawler Work Phone: [facility] 01-29-2024 11:38-0400 Body mass index (BMI) [Ratio] 42 kg/m2 MD Katy Lawler Work Phone: [facility] 01-29-2024 11:38-0400 Body temperature 98.1 [degF] MD Katy Lawler Work Phone: [facility] 01-29-2024 11:38-0400 Body weight 94.34 kg MD Katy Lawler Work Phone: [facility] 01-29-2024 11:38-0400 Diastolic blood pressure 90 mm[Hg] MD Katy Lawler Work Phone: [facility] 01-29-2024 11:38-0400 Heart rate 58 /min MD Katy Lawler Work Phone: [facility] 01-29-2024 11:38-0400 SaO2% (BldA) [Mass fraction] 99 % MD Katy Lawler Work Phone: [facility] 01-29-2024 11:38-0400 Systolic blood pressure 143 mm[Hg] MD Katy Lawler Work Phone: [facility] 12-28-2023 09:39-0400 Diastolic blood pressure 82 mm[Hg] MD Katy Lawler Work Phone: [facility] 12-28-2023 09:39-0400 Heart rate 65 /min MD Katy Lawler Work Phone: [facility] 12-28-2023 09:39-0400 Respiratory rate 16 /min MD Katy Lawler Work Phone: [facility] 12-28-2023 09:39-0400 SaO2% (BldA) [Mass fraction] 95 % MD Katy Lawler Work Phone: [facility] 12-28-2023 09:39-0400 Systolic blood pressure 156 mm[Hg] MD Katy Lawler Work Phone: [facility] 12-28-2023 06:57-0400 Body height 149.86 cm MD Katy Lawler Work Phone: [facility] 12-28-2023 06:57-0400 Body weight 95.25 kg MD Katy Lawler Work Phone: [facility] 10-26-2023 09:37-0400 Body height 149.86 cm [facility] 10-26-2023 09:37-0400 Body mass index (BMI) [Ratio] 41.8 kg/m2 [facility] 10-26-2023 09:37-0400 Body weight 94.06 kg [facility] 10-26-2023 09:37-0400 Diastolic blood pressure 82 mm[Hg] [facility] 10-26-2023 09:37-0400 Heart rate 60 /min [facility] 10-26-2023 09:37-0400 Systolic blood pressure 124 mm[Hg] [facility] 09-19-2022 16:30-0400 Body height 149.86 cm Katy Lawler Other [facility] [employer] Other 09-19-2022 16:30-0400 Body mass index (BMI) [Ratio] 42.41 kg/m2 Katy Lawler Other [employer] [facility] [employer] Other 09-19-2022 16:30-0400 Body weight 95.26 kg Katy Lawler Other [employer] [facility] [employer] Other 09-19-2022 16:30-0400 Diastolic blood pressure 72 mm[Hg] Katy Lawler Other [employer] [facility] [employer] Other 09-19-2022 16:30-0400 SaO2% (BldA) [Mass fraction] 99 % Katy Lawler Other [employer] Other 09-19-2022 16:30-0400 Systolic blood pressure 124 mm[Hg] Katy Lawler Other [employer] Other 07-21-2022 16:15-0500 Blood Pressure Location [facility] 07-21-2022 16:15-0500 Diastolic blood pressure 82 mm[Hg] [facility] 07-21-2022 16:15-0500 Heart rate 76 /min [facility] 07-21-2022 16:15-0500 Respiratory rate 18 /min [facility] 07-21-2022 16:15-0500 SaO2% (BldA) [Mass fraction] 97 % [facility] 07-21-2022 16:15-0500 Systolic blood pressure 130 mm[Hg] [facility] 07-05-2022 14:49-0500 Diastolic blood pressure 90 mm[Hg] [facility] 07-05-2022 14:49-0500 Mean blood pressure 109 mm[Hg] [facility] 07-05-2022 14:49-0500 Systolic blood pressure 148 mm[Hg] [facility] 07-05-2022 14:34-0500 Blood Pressure Location [facility] 07-05-2022 14:34-0500 Diastolic blood pressure 90 mm[Hg] [facility] 07-05-2022 14:34-0500 Heart rate 78 /min [facility] 07-05-2022 14:34-0500 Respiratory rate 18 /min [facility] 07-05-2022 14:34-0500 SaO2% (BldA) [Mass fraction] 94 % [facility] 07-05-2022 14:34-0500 Systolic blood pressure 150 mm[Hg] [facility] 07-05-2022 13:57-0500 Heart rate 67 /min [facility] 07-05-2022 13:57-0500 SaO2% (BldA) [Mass fraction] 94 % [facility] 07-05-2022 13:57-0500 Respiratory rate 18 /min [facility] 07-05-2022 13:57-0500 Diastolic blood pressure 82 mm[Hg] [facility] 07-05-2022 13:57-0500 Mean blood pressure 102 mm[Hg] [facility] 07-05-2022 13:57-0500 Systolic blood pressure 144 mm[Hg] [facility] 07-05-2022 11:55-0500 Heart rate 74 /min [facility] 07-05-2022 11:55-0500 SaO2% (BldA) [Mass fraction] 94 % [facility] 07-05-2022 11:54-0500 Respiratory rate 18 /min [facility] 07-05-2022 11:54-0500 Diastolic blood pressure 94 mm[Hg] [facility] 07-05-2022 11:54-0500 Mean blood pressure 110 mm[Hg] [facility]o [facility] 07-05-2022 11:54-0500 Systolic blood pressure 141 mm[Hg] [facility] [email or web address] [facility] 07-05-2022 10:47-0500 Heart rate 65 /min [facility] [email or web address] [facility] 07-05-2022 10:47-0500 SaO2% (BldA) [Mass fraction] 97 % [facility] [email or web address] [facility] 07-05-2022 10:47-0500 Respiratory rate 18 /min [facility] [email or web address] [facility] 07-05-2022 10:46-0500 Diastolic blood pressure 78 mm[Hg] [facility] 07-05-2022 10:46-0500 Mean blood pressure 93 mm[Hg] [facility] 07-05-2022 10:46-0500 Systolic blood pressure 124 mm[Hg] [facility] 07-05-2022 10:35-0500 Body temperature 97.7 [degF] [facility] [email or web address] [facility] 07-05-2022 10:35-0500 Respiratory rate 19 /min Alfredo Brown [facility] 07-05-2022 10:30-0500 Respiratory rate 15 /min Alfredo Pompa [facility] 07-05-2022 10:25-0500 Respiratory rate 19 /min Alfredo Pompa [facility] 07-05-2022 10:10-0500 Body temperature 97.7 [degF] Alfredo Pompa [facility] 07-05-2022 07:34-0500 Blood Pressure Location Alfredo Pompa [facility] 07-05-2022 07:34-0500 Heart rate 72 /min Alfredo Pompa [facility] 07-05-2022 07:32-0500 Body temperature 97.88 [degF] Alfredo Pompa [facility] 07-05-2022 07:32-0500 Blood Pressure Location Alfredo Pompa [facility] 06-27-2022 10:44-0500 Diastolic blood pressure 87 mm[Hg] Alfredo Pompa [facility] 06-27-2022 10:44-0500 Heart rate 74 /min Alfredo Pompa [facility] 06-27-2022 10:44-0500 Mean blood pressure 104 mm[Hg] Alfredo Pompa [facility] 06-27-2022 10:44-0500 Systolic blood pressure 138 mm[Hg] Alfredo Pompa [facility] 06-27-2022 10:43-0500 Heart rate 77 /min Alfredo Pompa [facility] 06-27-2022 10:43-0500 SaO2% (BldA) [Mass fraction] 97 % Alfredo Pompa [facility] 06-27-2022 10:43-0500 Diastolic blood pressure 87 mm[Hg] Alfredo Pompa [facility] 06-27-2022 10:43-0500 Mean blood pressure 106 mm[Hg] Alfredo Pompa [facility] 06-27-2022 10:43-0500 Systolic blood pressure 144 mm[Hg] Alfredo Pompa [facility] 02-19-2022 11:25-0400 Body height 149.86 cm Kimmy Alonzo Other [facility] Other 02-19-2022 11:25-0400 Body mass index (BMI) [Ratio] 40.39 kg/m2 Kimmy Alonzo Other [facility] Other 02-19-2022 11:25-0400 Body temperature 98.2 [degF] Kimmy Alonzo Other [facility] Other 02-19-2022 11:25-0400 Body weight 90.72 kg Kimmy Alonzo Other [facility] Other 02-19-2022 11:25-0400 Respiratory rate 18 /min Kimmy Alonzo Other [facility] Other 02-19-2022 11:25-0400 SaO2% (BldA) [Mass fraction] 97 % Kimmy Alonzo Other [facility] Other Encounters Encounter Date Encounter Type Care Provider Facility Start: 01-23-2025 End: 01-23-2025 ambulatory Katy Lawler MD Work Phone: [facility] Work Phone: Start: 01-23-2025 End: 01-23-2025 Patient encounter procedure Katy Lawler MD -[facility] Work Phone: Start: 12-19-2024 End: 12-19-2024 Clinisync Result Encounter Mi Madden DO Work Phone: [facility] Unsolicited Start: 12-19-2024 End: 12-19-2024 Clinisync Result Encounter Mi Madden DO Work Phone: [facility] External [facility] Unsolicited Start: 10-28-2024 End: 10-28-2024 ambulatory [facility] Work Phone: Start: 10-28-2024 End: 10-28-2024 Patient encounter procedure [facility] Work Phone: Start: 09-25-2024 End: 09-25-2024 Office consultation new/estab patient 40 min Gordon Bob MD Work Phone: [facility] Comment on above: Deviated nasal septu m (Primary Dx); Nasal obstruction; Nasal deformity; Deviated septum; Nasal congestion; Swelling of nose; Hypertrophy of inferior nasal turbinate; Nasal alar collapse; Sleep-disordered breathing; Difficulty breathing Start: 09-25-2024 End: 09-25-2024 ambulatory [address] C [facility] Amb[facility] Start: 07-28-2024 End: 07-28-2024 Departed Referred Katy Lawler MD Work Phone: [facility] [place] Work Phone: Start: 07-28-2024 End: 07-28-2024 ambulatory Katy Lawler MD Work Phone: [facility] Work Phone: Start: 07-28-2024 End: 07-28-2024 Patient encounter procedure [facility] Work Phone: Start: 06-23-2024 End: 06-23-2024 Coleen Galindo MD Work Phone: [facility] Start: 06-23-2024 End: 06-23-2024 Coleen Galindo MD Work Phone: [facility] Start: 06-23-2024 End: 06-23-2024 Office outpatient visit 15 minutes Caroline Galindo MD Work Phone: [facility] Comment on above: Nasal obstruction (P rimary Dx) Start: 06-23-2024 End: 06-23-2024 ambulatory CAROLINE GALINDO Not Available Start: 06-06-2024 End: 06-06-2024 ambulatory MD Ari Bowen Facility:[facility] Start: 06-06-2024 End: 06-06-2024 Patient encounter procedure Ari Gena Bowen [facility] Start: 05-21-2024 End: 05-21-2024 ambulatory MD Ari Bowen Facility:[facility] Start: 05-21-2024 End: 05-21-2024 Patient encounter procedure Ari Gena Bowen [facility] Start: 05-19-2024 End: 05-19-2024 Office outpatient visit 25 minutes Caroline Galindo MD Work Phone: [facility] Comment on above: Chronic rhinitis (Pr imary Dx); Chronic pansinusitis Start: 05-19-2024 End: 05-19-2024 ambulatory CAROLINE GALINDO Not Available Start: 05-19-2024 End: 05-19-2024 Bamboo flowsheet Caroline Galindo MD Work Phone: [facility] Start: 05-19-2024 End: 05-19-2024 Bamboo flowsheet Caroline Galindo MD Work Phone: [facility] Start: 05-01-2024 End: 05-01-2024 ambulatory [facility] Work Phone: Start: 05-01-2024 End: 05-01-2024 Patient encounter procedure [facility] Work Phone: Start: 03-25-2024 End: 03-25-2024 ambulatory MD Katy Lawler Work Phone: [facility] Work Phone: Start: 03-25-2024 End: 03-25-2024 Patient encounter procedure MD Katy Lawler Work Phone: [facility] Work Phone: Start: 03-04-2024 End: 03-04-2024 ambulatory MD Katy Lawler Work Phone: [facility] Work Phone: Start: 03-04-2024 End: 03-04-2024 Patient encounter procedure MD Katy Lawler Work Phone: [facility] Work Phone: Start: 01-29-2024 End: 01-29-2024 ambulatory MD Katy Lawler Work Phone: [facility] Work Phone: Start: 01-29-2024 End: 01-29-2024 Patient encounter procedure MD Katy Lawler Work Phone: [facility] Physician [facility] Work Phone: Start: 01-01-2024 Non-patient / Non-visit MD Katy Lawler Work Phone: [facility] Physician [facility] Gastro[facility]ology Work Phone: Start: 12-28-2023 Non-patient / Non-visit MD Katy Lawler Work Phone: [facility] Physician [facility] Gastroenterology Work Phone: Start: 12-28-2023 End: 12-28-2023 Admission to same day surgery center MD Katy Lawler Work Phone: [facility] Work Phone: Start: 12-28-2023 End: 12-28-2023 ambulatory MD Katy Lawler Work Phone: [facility] Work Phone: Start: 11-03-2023 Non-patient / Non-visit MD Katy Lawler Work Phone: [facility] [employer] Work Phone: Start: 10-26-2023 Patient encounter status [facility] Start: 10-26-2023 End: 10-26-2023 ambulatory [facility] Work Phone: Start: 10-26-2023 End: 10-26-2023 Encounter for general adult medical examination without abnormal findings [facility] Start: 10-26-2023 End: 10-26-2023 Patient encounter procedure [facility] Work Phone: Start: 03-20-2023 End: 03-20-2023 ambulatory Katy Lawler Other [facility] Other Start: 03-20-2023 Telephone encounter Katy Bucky [facility] Start: 01-16-2023 End: 01-16-2023 ambulatory Katy Lawler Other [facility] Other Start: 01-16-2023 Telephone encounter Katy Bucky [facility] Start: 12-28-2022 End: 12-28-2022 ambulatory Katy Lawler Other [facility] Other Start: 12-28-2022 Telephone encounter Katy Bucky [facility] Start: 12-07-2022 End: 12-07-2022 ambulatory Katy Lawler Other [facility] Other Start: 12-07-2022 Telephone encounter Katy Bucky [facility] Start: 11-09-2022 End: 11-09-2022 ambulatory Katy Lawler Other [facility] Other Start: 11-09-2022 Telephone encounter Katy Lawler [facility] Start: 10-25-2022 (Televisit) Televisit Katy Lawler F [facility] Start: 10-25-2022 End: 10-25-2022 ambulatory Katy Lawler Other [facility] Other Start: 10-17-2022 End: 10-17-2022 ambulatory Katy Lawler Other [facility] Other Start: 10-17-2022 Telephone encounter Katy Lawler [facility] Start: 10-03-2022 End: 10-04-[address] MI MADDEN . Facility:[facility] Start: 09-20-2022 End: 09-21-[address] KATY LAWLER Facility:[facility] Start: 09-19-2022 End: 09-19-2022 ambulatory Katy Lawler Other [facility] Other Start: 09-19-2022 Encounter for genera l adult medical examination without abnormal findings Katy Lawler [facility] Start: 09-19-2022 Periodic preventive med est patient 40-64yrs Katy Lawler [facility] Start: 08-14-2022 End: 08-15-[address] KATY LAWLER Facility: Start: 08-02-2022 End: 07-21-2022 Patient encounter procedure Ever Mccoy [facility] Start: 07-13-2022 End: 07-13-2022 Patient encounter procedure Ever Mccoy [facility] Start: 07-11-2022 End: 07-11-2022 Patient encounter procedure Ever Mccoy [facility] Start: 07-05-2022 End: 07-05-2022 Patient encounter procedure Ever Mccoy [facility] Start: 07-05-2022 End: 07-05-2022 Admission to same day surgery center Alfredo Pompa [facility] Start: 07-05-2022 ambulatory Facility:1 [id number] Start: 06-27-2022 End: 06-27-2022 Patient encounter procedure Alfredo Pompa [facility] Start: 05-15-2022 Adult health examination aKty Lawler Other [facility] Other Start: 05-15-2022 Gynecological examination normal Katy Lawler Other [facility] Other Start: 03-19-2022 End: 03-19-[address] MAMADOU HARRELL Facility:[facility] Start: 03-13-2022 End: 03-13-2022 ambulatory LENORA NOLAN . Facility:[facility] Start: 02-19-2022 End: 02-19-2022 ambulatory Kimmy Alonzo Other [facility] Other Start: 02-19-2022 Office outpatient ne w 30 minutes Kimmy Alonzo [facility] Start: 02-16-2022 End: 02-16-[address] KATY LAWLER Facility:[facility] Start: 12-07-2021 End: 12-07-[address] MI MADDEN . Facility:[facility] Start: 11-03-2021 End: 11-03-2021 Patient encounter procedure Caroline Hidalgo Kinga [facility] Procedures Date Procedure Procedure Detail Performing Clinician Start: 12-19-2024 MM TOMOSYNTHESIS SCR EENING BI Mi Madden DO Work Phone: Start: 12-19-2024 Mammography Mi crespo DO Work Phone: Start: 09-25-2024 Follow-up visit Follow-up GORDON BOB Start: 12-28-2023 Screening colonoscopy M D Katy Lawler Work Phone: Start: 10-23-2023 Mammography Caroline monahan [...] hysterectomy Alfredo georges H/O: tubal ligation Alfredo Duenas own End: 12-06-2021 Hysterectomy Katy Lawler Other Screening for malign ant neoplasm of breast Katy Lawler Other Tonsillectomy Alfredo Pompa Plan of Treatment Date Care Activity Detail Author Start: 2026 Zoster Vaccines (1 of 2) Zoste r Vaccines (1 of 2) [facility] Start: 02-27-2026 Screening for malign ant neoplasm of cervix [facility] Start: 03-09-2025 Influenza vaccination Influenz a Vaccine (Season Ended) [facility] Start: 10-22-2024 Screening for malign ant neoplasm of breast Mammogram [facility] Start: 08-12-2024 End: 08-12-2024 Patient encounter procedure 08/12/2024 2:00 PM EST Office Visit [facility] [address] [place] [address] Libra Mullins, PA [address] [place] [address] [facility] Start: 07-29-2024 [facility] Start: 06-23-2024 End: 06-23-2024 Patient encounter procedure [facility] KAYE CARMINECHASTITYTomas Comment on above: Arrived Start: 03-09-2024 COVID-19 Vaccine ( season) COVID-19 Vaccine ( season) [facility] Start: 03-09-2024 Influenza vaccination Influenza Vacc ine (#1) [facility] Start: 12-28-2023 [facility] Start: 10-26-2023 Patient referral [facility] Work Phone: Start: 10-04-2023 Screening for malign ant neoplasm of breast Mammogram [facility] Start: 2006 Screening for malign ant neoplasm of cervix HPV/Cotest [facility] Start: 1998 DTaP/Tdap/Td Vaccine s (1 - Tdap) DTaP/Tdap/Td Vaccines (1 - Tdap) [facility] Start: 1997 Screening for malign ant neoplasm of cervix HPV/Cotest [facility] Start: 1995 Hepatitis B Vaccines (1 of 3 - 19+ 3-dose series) Hepatitis B Vaccines (1 of 3 - 19+ 3-dose series) [facility] Start: 1994 Hepatitis C screening Hepatitis C [facility] Start: 1977 MMR Vaccines (1 of 1 - Standard series) MMR Vaccines (1 of 1 - Standard series) [facility] Start: 1976 HIV screening HIV Screening [facility] Start: 1976 Lipid panel Lipid Panel [facility] Start: 1976 Screening for malign ant neoplasm of colon [facility] Start: 1976 Yearly Adult Physical Yearly Adult P hysical [facility] Chlamydia trachomati s rRNA [Presence] in Cervix by TIMMY with probe detection [facility] Comprehensive metabo lic 2000 panel - Serum or Plasma [facility] Human papilloma viru s 16+18+31+33+35+39+45+51+ 52+56+58+59+66+68 DNA [Presence] in Cervix by Probe with signal amplification [facility] Human papilloma viru s 16+18+31+33+35+39+45+51+ 52+56+58+59+68 DNA [Presence] in Cervix by Probe with signal amplification [facility] Neisseria gonorrhoea e rRNA [Presence] in Cervix by TIMMY with probe detection [facility] Patient Education Colon polyps Hemorrhoids (DC) Know your Meds [facility] Work Phone: Patient referral [facility] Work Phone: [facility] Immunizations Immunization Date Immunization Notes Care Provider Fa shahida 05-06-2021 COVID-19 Vaccine Pfi zer - Documentation Purposes Only Katy Lawler Other [facility] 05-10-2020 influenza, injectabl e, quadrivalent, preservative free Caroline Galindo MD Work Phone: [facility] 05-10-2020 influenza virus vaccine, unspecified formulation Caroline Galindo MD Work Phone: [facility] 05-01-2019 influenza, injectabl e, quadrivalent, preservative free Caroline Galindo MD Work Phone: [facility] 05-23-2018 Influenza, injectabl e, [facility] [place] Canine Kidney, preservative free, quadrivalent Caroline Galindo MD Work Phone: [facility] 05-25-2017 influenza, injectabl e, quadrivalent, preservative free Caroline Galindo MD Work Phone: [facility] 05-25-2017 tetanus and diphther ia toxoids, adsorbed, preservative free, for adult use (5 Lf of tetanus toxoid and 2 Lf of diphtheria toxoid) Katy Lawler Other [facility] 04-26-2016 tetanus and diphther ia toxoids, adsorbed, preservative free, for adult use (5 Lf of tetanus toxoid and 2 Lf of diphtheria toxoid) Katy Lawler Other [facility] 04-19-2016 influenza, injectabl e, quadrivalent, preservative free Caroline Galindo MD Work Phone: [facility] 03-23-2015 influenza virus vaccine, split virus (incl. purified surface antigen) Katy Bucky Other [facility] Other 03-23-2015 influenza virus vaccine, unspecified formulation [facility] Payers Date Payer Category Payer Self-pay 2020 [facility] Subscriber Plan / Payer (Effective 2020-Present) Name: Michaelle Hill Relation to Subscriber: Self Name: Michaelle Hill Payer ID: Not on file Type: Not on file Address: [address] [place] [id number] 2020 [facility] Care [facility] [id number]. 1975 Unknown [id number] [id number]. 2.356 1976 Unknown [id number] 2.16840.1.126026.3.579. 2.593 1976 Unknown [id number] 2.16.840.1.437363.3.579. 2.593 1976 Unknown [id number] 2.16.840.1.952192.3.579. 2.593 1976 Unknown [id number] 2.16.840.1.273869.3.579. 2.593 1976 Unknown [id number] 2.16.840.1.977484.3.579. 2.593 1976 Unknown [id number] 2.16.840.1.664632.3.579. 2.593 1976 Unknown [id number] 2.16.840.1.159499.3.579. 2.593 1976 Unknown [id number] 2.16.840.1.259312.3.579. 2.727 1976 Unknown [id number] 2.16.840.1.790681.3.579. 2.727 1976 Unknown [id number] 2.16.840.1.641892.3.579. 2.1259 1976 Unknown [id number] 2.16.840.1.768677.3.579. 2.1259 1976 Unknown [id number] 2.16.840.1.573460.3.579. 2.1244 1959 [employer] [facility] [id number] [id number] Unknown [id number] 2.16.840.1.991985.3.579. 2.531 Unknown [id number] 2.16.840.1.693429.3.579. 2.531 Social History Date Type Detail Facility Tobacco smoking status Unknown if ever sm oked [facility] Start: 05-19-2024 End: 06-23-2024 Sex Assigned At Female [facility] Tobacco smoking status No Smokin g Status Entered [facility] Start: 07-05-2022 End: 12-28-2023 Tobacco smoking status Ex-smoker (finding) [facility] Comment on above: Patient states she q uit 20 years ago. Tobacco smoking status Never [facility] Comment on above: Patient states she q uit 20 years ago. Start: 10-16-2023 Tobacco smoking stat us AZIS Never smoked tobacco (finding) [facility] Start: 1975 Sex Assigned At Female F [facility] Start: 12-17-1997 End: 08-09-1999 History of tobacco use Current smoker [facility] Start: 12-17-1997 End: 08-09-1999 History of tobacco use Cigarette Smoker [facility] Start: 05-19-2024 End: 06-23-2024 Cigarettes smoked current (pack per day) - Reported 0.5 [facility] Start: 05-19-2024 Tobacco use and exposure Smokeless tobacco non-user [facility] Start: 05-19-2024 End: 06-23-2024 Alcoholic beverage intake Current drinker of alcohol (finding) [facility] Start: 02-26-2023 Alcohol Comment monthly, Caffe ine intake: 1-2 cups per day [facility] Start: 1975 Sex assigned at Not on file N [facility] Start: 07-28-2024 End: 10-28-2024 Sex Female (finding) [facility] Start: 09-15-2024 End: 09-25-2024 Exposure to SARS-CoV-2 (event) Not sure [facility] Goals Date Patient Goal Desired Activity /State Functional Status Date Assessment Result Facility 05-21-2024 Functional Status N/A [facility] 07-21-2022 Functional Status No [facility] 07-05-2022 Functional Status No [facility] 06-27-2022 Functional Status No [facility] Clinical Notes 07-21-2019 to 10-28-2024 Note Date & Type Note Facility 10-28-2024 Evaluation note Diagnosis Onset Date Resolution Class 3 severe obesity with body mass index (BMI) of 40.0 to 44.9 in adult acute October 082024 1:41pm Essential (primary) hypertension acute October 28, 2024 1:41pm JULI on CPAP acute October 28 1:41pm Right-sided temporomandibular joint pain-dysfunction syndrome acute October 28, 2024 1:41pm [facility] Work Phone: 1(253) 147-452903-20-2025 History of Present illness Narrative* Gordon Bob MD - 09/25/2024 12:45 PM EDT Images from the original note were not included. Facial Plastic & Reconstructive Surgery Reason for consult: Nasal obstruction Referring provider: Dr. Galindo, [facility] Chief Complaint: Obstructed breathing Previous Otolaryngology Provider: [...] Left sided nasal obstruction. Symptoms are constant, p resent year round, does not fluctuate. It affects [...] pass was to the area of the middlemeatus. The third pass was to the sphenoethmoidal recess. Septum: Deviation is S shaped with bilateral obstruction approximately 90% without perforations norsynechia. Internal Nasal Valve: Angle is reduced, narrowing the nasal airway bilaterally. Right nasal cavity: Inferior turbinate: 2+ Inferior meatus: Clear, no discharge, no polyps/masses/lesions Middle meatus: Clear, no discharge, no polyps/masses/lesions Left nasal cavity: Inferior turbinate: 2+ Inferior meatus: Clear, no discharge, no polyps/masses/lesions Middle meatus: Clear, no discharge, no polyps/masses/lesions Nasopharynx: Clear, no discharge, no masses/lesions Modified [place] Maneuver: Performed with a cotton tipped applicator, [...] procedures. All questions were answered. Plan - Recommendreconstructive septoplasty, nasal valve repair with structural grafting, and inferior turbinate reduction with lateralization. Gordon Bob MD [employer] Worker, Facial Plastic & Reconstructive Surgery P: [phone] ([phone]) F: [phone] documented in this [facility] Work Phone: 1(239) 191-386712-16-2024 History of Present illness Narrative* Caroline Galindo MD - 06/23/2024 8:30 AM EST Subjective Patient ID: Michaelle Hill is a [...] see Dr Gordon Bob documented in [id number] History of Present illness Narrative* Caroline Galindo MD - 05/19/2024 3:20 PM EST Subjective Patient ID: Michaelle Hill is a [...] (0.5 mg) by mouth in the morning. 90tablet 3 No current facility-administered medications on file [...] day after starting steroids. documented in this encounterCox [id number] Evaluation note* Diagnosis Onset Date Resolution Status Admit Date Palpitations acute April 1:40pm Sinusitis, acute maxillary acute May 01, 2024 1:40pm [facility] Work Phone: 1(745) 874-642610-24-2024 Evaluation note* Diagnosis Onset Date Resolution Status Admit Date Palpitations acute April 1:40pm Sinusitis, acute maxillary inactive May 01, 2024 1:40pm Anxiety and depression acute [facility] 2024 8:34am Essential (primary) hypertension acute July 28 8:34am Well woman exam acute July 102024 8:34am [facility] Work Phone: 1(744) 345-817806-21-2024 History and physical note Author Jennifer Akers [facility] December 28, 2023 8:20am Note Date/Time December 28, 2023 8:20 am [facility] [address] [place] [address] Gastroenterology H&P Signed Patient: Michaelle Hill MR#: [id number] : 1975 Acct:[id number] Age/Sex: 48 / F Adm Date: 4 Loc: Room: Type: [facility] Attending Dr: Jennifer Akers DO Copies to: DO Katy Moctzeuma MD~ Date of Service: 12/28/2023 HISTORY & [...] DO Documented By: Jennifer Akers DO 12/28/23 08 Signed By: <Electronically signed by Jennifer Akers DO> 12/28/23 0820 [facility] Work Phone: 1(434) 178-143906-21-2024 [facility]* Encounter Date Diagnosis Assessment Notes Treatment Notes Treatment Clinical Notes Jan, Generalized anxiety disorder (ICD-10 - F41.1) [facility] Other 04-19-2023 Evaluation note* Encounter Date Diagnosis [...] verbalized understanding and agreement with treatment plan. [facility] Other 04-11-2023 Evaluation note* Encounter Date Diagnosis Assessment Notes Treatment Notes Treatment Clinical Notes Oct, Class 3 obesity (ICD-10 - E66.01) [facility] Other 03-14-2023 Evaluation note* Encounter Date Diagnosis [...] obesity (ICD-10 - E66.01) weight loss recommended [facility] Other 12-28-2022 Hospital Discharge instructions Patient Education 07/05/2022 12:22:19 Post Op Patient Instructions - FT (Custom) (CUSTOM) [facility]12-28-2022 Evaluation + Plan note Future Scheduled Tests Radiology* Echo Transthoracic Complete 07/05/22 [facility]08-14-2022 Evaluation note* Encounter Date Diagnosis Assessment Notes [...] understanding and is agreeable with treatment plan [facility] Other 01-13-2020 Evaluation + Plan note Future Appointments Appointment Date:07/13/2022 08:00:00 AM Scheduled [facility] Echo (FT) Appointment Date:07/21/2022 04:30:00 PM Scheduled Provider:Ever Mccoy MD [facility] Type:Cardiology Follow Up (FT) Future Scheduled Tests Radiology* Echo Transthoracic [facility] No [facility] available for this [facility] Future Appointments Appointment Date:07/05/2022 10:30:00 AM Scheduled Provider: Location:[facility] Future Appointments Appointment Date:07/21/2022 04:30:00 PM Scheduled Provider:Ever Mccoy MD Location:FT.Cardiology Clinic Appointment Type:Cardiology Follow Up ([facility]) [facility] Future Appointments Appointment Date:06/06/2024 09:00:00 AM Scheduled Provider: Location:.CARDIO Appointment Type:CV Holter/Event (FT) [facility] evaluation noteNo FirmafonEl Prado Gorsh Other evaluation note* Diagnosis Onset Date Resolution Status Class 3 severe obesity with body mass index (BMI) of 40.0 to 44.9 in adult acute Screening for colon cancer a cute Wellness examination [facility] Work Phone: evaluation note* Diagnosis Onset Date Resolution Status Class 3 severe obesity with body mass index (BMI) of 40.0 to 44.9 in adult acute Generalized anxiety disorder acute Screening for colon cancer a cute Wellness examination [facility] Work Phone: evaluation noteNo assessment information available [facility] Work Phone: evaluation note* Diagnosis Onset Date Resolution Status Sinusitis, acute maxillary a cute [facility] Work Phone: evaluation note* Diagnosis Onset Date Resolution Status Sinusitis, acute maxillary a cute Sinusitis, acute maxillary a cute [facility] Work Phone: evaluation note* Diagnosis Onset Date Resolution Status Sinusitis, acute maxillary a cute Post-nasal drainage [facility] Work Phone: evaluation note* Diagnosis Chronic rhinitis- Primary Chronic pansinusitis [...] and respiratory abnormality documented in this encounter [facility] Work Phone: History general Narrative - Reported* Type Description Date Surgical History hysterectomy Surgical History tonsillectomy Hospitalization History see above [facility] Other History general Narrative - Reported* Type Description Date [...] Surgical History D&C Hospitalization History see above [facility] Other Hissmgn [facility] - [facility] Other Hospital Discharge instructions No data available for this section [facility] instructionsAmbulatory Orders* Referral to Gastroenterology Time Frame: 10/26/23, Location: None Selected * Referral to Weight Management Time Frame: 10/26/23, Location: None Selected [facility] Work Phone: Progress note No data available for this section [facility] (narrative)No reason for referral information availableLouis [facility] Work Phone: Summary Purpose Family History Relationship Condition Age [...] Date Headaches October 28, 2024 1:4 1pm Chief Complaint Admit Date Headaches October 28, 2024 1:4 1pm not feeling well/med refills January 23, 2025 11:47am Reason for Visit Admit Date Class 3 severe obesity with body mass index (BMI) of 40.0 to 44.9 in adult October 28, 2024 1:41pm Essential (primary) hypertension October 082024 1:41pm JULI on CPAP October 28, 2024 1:4 1pm Right-sided temporomandibular joint pain -dysfunction syndrome October 28, 2024 1:41pm Additional Source Comments REASON FOR VISIT (unrecogniz ed section and content) Reason Comments Sinusitis Reason Comments Sinusitis 1 mo check sinus Reason Comments Follow-up INFORMATION SOURCE (unrecogn ized section and content) DATE CREATED AUTHOR 05/16/2022 [facility] dical Specialist DATE CREATED AUTHOR AUTHOR'S ORGANIZ ATION 08/12/2022 [facility] DATE CREATED AUTHOR AUTHOR'S ORGANIZ ATION 10/12/2022 [facility] DATE CREATED AUTHOR AUTHOR'S ORGANIZ ATION 06/23/2024 [place] [facility] DATE CREATED AUTHOR AUTHOR'S ORGANIZ ATION 06/24/2024 [facility] dical Specialists EPIC DATE CREATED AUTHOR AUTHOR'S ORGANIZ ATION 08/08/2024 [facility] DATE CREATED AUTHOR AUTHOR'S ORGANIZ ATION 10/01/2024 [facility] Ambulatory Patient Care team informatio n [...] May 01, 2024 End: May 01, 2024 Boat Cleaning Supervisor Relationship Specialty Start Date End Date Katy Lawler MD [address] [place] [address] PCP - General Family Medicine 02/27/23 Boat Cleaning Supervisor Relationship Specialty Start Date End Date Katy Lawler MD [address] [place] [address] PCP - General Family Medicine 02/27/23 Boat Cleaning Supervisor Relationship Specialty Start Date End Date Katy Lawler MD [address] [place] [address] PCP - General Family Medicine 02/27/23 Boat Cleaning Supervisor Relationship Specialty Start Date End Date Katy Lawler MD [address] [place] [address] PCP - General Family Medicine 02/27/23 Team Status: Inactive Member Role Status Dates Katy Lawler MD Primary Care Provide r, Attending Provider Active Start: July 28, 2024 End: July 28, 2024 Team Status: Inactive Member Role Status Dates Katy Lawler MD Primary Care Provide r, Attending Provider Active Start: October 28, 2024 End: October 28, 2024 Boat Cleaning Supervisor Relationship Specialty Start Date End Date Katy Lawler MD PCP - General Family Medicine 02/27/23 Team Status: Inactive Member Role Status Dates Katy Lawler MD Primary Care Provider Active Start: October 28, 2024 End: October 28, 2024 Katy Lawler MD Attending Provider Active St art: October 28, 2024 End: October 28, 2024 Team Status: Inactive Member Role Status Dates Katy Lawler MD Primary Care Provider Active Start: January 23, 2025 End: January 23, 2025 Katy Lawler MD Attending Provider Active St art: January 23, 2025 End: January 23, 2025 Goals (unrecognized section and content) Goals may [...] BE BASED ON THE PRIMARY CLINICAL RECORDS. [facility] provides no warranty or guarantee of the accuracy or completeness of information in this document.
[2025-02-06 10:57] LABS: Hematocrit 42.1 % (36.0-48.0); Hemoglobin 13.8 g/dL (12.0-16.0); Immature Granulocytes Abs Auto 0.02 10^3/uL (0.00-0.03); Immature Granulocytes Pct Auto 0.3 % (0.0-0.5); Lymphocytes Absolute Auto 0.8 10^3/uL (1.2-3.8); Mean Corpuscular HGB Conc 32.8 g/dL (29.9-35.2); Mean Corpuscular Hemoglobin 27.9 pg (26.7-34.0); Mean Corpuscular Volume 85.2 fL (81.0-99.0); Platelet Count 190 10^3/uL (150-450); Red Blood Count 4.94 10^6/uL (4.20-5.40); White Blood Count 6.4 10^3/uL (4.0-11.0)
[2025-02-06 11:32] LABS: Alanine Aminotransferase 39 U/L (14-59); Albumin Globulin Ratio 0.9; Albumin Level 3.9 g/dL (3.4-5.0); Alkaline Phosphatase 89 U/L (46-116); Anion Gap 13.4; Aspartate Amino Transferase 19 U/L (15-37); Blood Urea Nitrogen 17.0 mg/dL (7.0-18.0); Calcium 9.5 mg/dL (8.5-10.1); Carbon Dioxide 30.8 mmol/L (21.0-32.0); Chloride 97 mmol/L (98-107); Estimated GFR (African America >60 (>=60 mL/min/1.73m^2); Estimated GFR (Non-African Ame >60 (>=60 mL/min/1.73m^2); Globulin 4.3 g/dL; Glucose 98 mg/dL (74-106); Magnesium 1.9 mg/dL (1.8-2.4); Potassium 3.2 mmol/L (3.5-5.1); Sodium 138 mmol/L (136-145); TSH W/ REFLEX FT4 3.109 uIU/mL (0.358-3.740); Total Protein 8.2 g/dL (6.4-8.2)
== END 2025-02-06 10:20 | disposition home or self-care (01) ==
LOC: LAB 10:27
PROVIDERS: PCP Family Medicine; Visit Provider Physician Assistant
DX: R00.2 Palpitations (principal); R07.9 Chest pain, unspecified
CPT/HCPCS: 36415; 80053; 83735; 84443; 85025

== ENCOUNTER 2025-04-20 07:05 | Outpatient (OUT) | payer BC, SELFPAY ==
--- OUTSIDE RECORDS SUMMARY | 2025-04-20 07:09 | XMS_ITS | Encounter Summary ---
Author Organization [facility] Address [address] [place] [address] Care Team Providers Care Wire Galvanizer Name Role Phone Katy Villarreal MD Primary Care Provider [phone] Encounter Details Date Type Department Care Team (Late st Contact Info) Description 10/23/2023 Clinisync Result Encounter [facility] External Department Unsolicited Matti Madden, DO [address] [facility] [place] [address] Social History Tobacco Use Types [...] EDT Narrative 10/23/2023 3:07 PM EDT The [address] [address] Mammography Report Signed Patient: POP HILL MR#: [id number] : 1975 Acct:[id number] Age/Sex: 48 / F ADM Date: 10/23/23 Loc: MAMMO Attending Dr: Matti Madden D.O. Ordering Physician: Matti Madden D.O. Results: Date of Service: 10/23/23 Follow Up: Procedure(s): MM tomosynthesis screening BI Accession Number(s): [id number] cc: Katy Villarreal M.D.; Matti Madden D.O. Patient Name: POP HILL MR#: [id number] : 1975 Exam Date: 10/23/2023 Ordering Doctor: [...] breast cancer at age 46. LOCATION: The [facility] BREAST COMPOSITION: Scattered areas fibroglandular density. [...] Signed By: 10/23/23 1507 DD/ 1506 TD/TT: Stock Chaser: Procedure Note Radiology, Radiologist, - 10/23/2023 [place] [address] Mammography Report Signed Patient: POP HILL MMR#: [id number] : 1975Acct:[id number] Age/Sex: 48 / FADM Date: 10/23/23 Loc: MAMMO Attending Dr: Matti Madden D.O. Ordering Physician: Matti Madden D.O.Results: Date of Service: 10/23/23Follow Up: Procedure(s): MM tomosynthesis screening BI Accession Number(s): [id number] cc: Katy Villarreal M.D.; Matti Madden D.O. Patient Name: POP HILL MR#: [id number] : 1975 Exam Date: 10/23/2023 Ordering Doctor: [...] breast cancer at age 46. LOCATION: The [facility] BREAST COMPOSITION: Scattered areas fibroglandular density. [...] M.D. Signed By:10/23/23 1507 DD/ 1506 TD/TT: Stock Chaser: Matti Madden DO [facility] Final Result documented in this encounter Visit Diagnoses Not on filedocumented in this encounter Care Teams Wire Galvanizer Relationship Specialty Start Date End Date Katy Villarreal MD PCP - General Family Medicine 02/27/23 documented as of this encounter
--- OUTSIDE RECORDS SUMMARY | 2025-04-20 07:09 | XMS_ITS | Clinical Summary ---
Author Organization [facility] Address [address] [place] [address] Care Team Providers Care Senior Fire Protection Engineer Name Role Phone Katy Villarreal MD Primary Care Provider [phone] Allergies Active Allergy Reactions Criticality Noted Date [...] 06/23/2024 8:22 AM EST Plan of Treatment Not on file Insurance [facility] Care Teams Senior Fire Protection Engineer Relationship Specialty Start Date End Date Katy Villarreal MD PCP - General Family Medicine 02/27/23
--- OUTSIDE RECORDS SUMMARY | 2025-04-20 07:09 | XMS_ITS | Clinical Summary ---
Author Organization [facility] Address [address] [place] [address] Phone Care Team Providers Care Secondary History Teacher Name Role Phone Unavailable Primary Care Provider [...] Yearly Adult Physical 02/29/2024 02/27/2023 COVID-19 Vaccine (1 - season) 2025 Influenza Vaccine (#1) 2025 , 05/01/2019, 05/23/2018, [...] patient's age to complete this topic Insurance [facility] Member Subscriber Plan / Payer (Ef fective 2020-Present) Name:Pop Hill Relation to Subscriber:Self Name:Pop Hill Payer ID:[id number] (NAIC) Type:Not on file Address: [id number] [facility]
--- OUTSIDE RECORDS SUMMARY | 2025-04-20 07:09 | XMS_ITS | Encounter Summary ---
Author Organization [facility] Address [address] [facility] [place] [address] Care Team Providers Care Pallet Stone Inserter Name Role Phone Katy Villarreal MD Primary Care Provider [phone] Encounter Details Date Type Department Care Team (Late st Contact Info) Description 02/26/2023 Abstract [facility] [address] [place] [id number] Libra Mullins PA [address] [place], [place] [address] Social History Tobacco Use Types Packs/Day Years [...] on filedocumented in this encounter Care Teams Pallet Stone Inserter Relationship Specialty Start Date End Date Katy Villarreal MD PCP - General Family Medicine 02/27/23 documented as of this encounter
--- OUTSIDE RECORDS SUMMARY | 2025-04-20 07:10 | XMS_ITS | CCD ---
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 Name Role Phone ADDISON LAWLER Primary Care Physician [phone] Kimmy Alonzo Unavailable Ivonne Caballero Unavailable Unavailable Amber Messer Unavailable Unavailable Addison Lawler Unavailable LENORA BHAKTA Admitting Unavailable BUCKY, DR ADDISON Amaya Primary Care Unavailable LENORA BHAKTA Attending Unavailable OVIDIO Celeste, LENORA Consulting Unavailable LETICIA SAENZ Consulting Unavailable BUCKY, DR ADDISON Amaya Attending Unavailable BUCKY, DR ADDISON Amaya Consulting Unavailable BUCKY, DR ADDISON Amaya Primary Care Unavailable BUCKY, DR ADDISON Amaya Admitting Unavailable BUCKY, DR ADDISON Amaya Admitting Unavailable BUCKY, DR ADDISON Amaya Attending Unavailable BUCKY, DR ADDISON Amaya Primary Care Unavailable BUCKY, DR ADDISON Amaya Consulting Unavailable MARYANNE ., DR STARK Admitting Unavailable AMRYANNE ., DR STARK Attending Unavailable MARYANNE ., DR STARK Consulting Unavailable BUCKY, DR ADDISON Amaya Primary Care Unavailable LORI, DR SHWETA Gao Consulting Unavailable MARYANNE ., DR STARK Admitting Unavailable LAWLER, DR ADDISON Amaya Primary Care Unavailable MARYANNE ., DR STARK Attending Unavailable MARYANNE ., DR STARK Consulting Unavailable BUCKY, DR ADDISON Amaya Attending Unavailable BUCKY, DR ADDISON Amaya Consulting Unavailable BUCKY, DR ADDISON Amaya Primary Care Unavailable BUCKY, DR ADDISON Amaya Admitting Unavailable JULIO CESAR, DR MAMADOU Gao Admitting Unavailable BUCKY, DR ADDISON Amaya Primary Care Unavailable JULIO CESAR, DR MAMADOU Gao Attending Unavailable JULIO CESAR, DR MAMADOU Gao Consulting Unavailable TREVOR ROSE Consulting Unavailable MD Addison Lawler Primary Care Provider DO Jennifer Akers Attending Provider Addison Lawler MD Primary Care Provider [phone] SUSAN GALINDO Attending Unavailable SUSAN GALINDO Attending Unavailable Addison Lawler MD Primary Care Provider [phone] Addison Lawler MD Attending Provider [phone] Addison Lawler Admitting Unavailable Addison Lawler Primary Care Unavailable Addison Lawler Attending Unavailable Ly, Jennifer L Admitting Unavailable Ly, Jennifer L Attending Unavailable Addison Lawler Primary Care Unavailable Unavailable Primary Care Provider UnavailLIBAN Hunter Attending Unavailable Addison Lawler MD Primary Care Provider [phone] Addison Lawler MD Primary Care Provider Addison Lawler MD Attending Provider MD Patricio Yee Admitting Unavailable NONE, XXXX Referring Unavailable DAVID Betancourt Attending Unavailable NONE, XXXX Referring Unavailable Kirnus, Ari D Admitting Unavailable Kirnus, Ari D Attending Unavailable Kirnus, Ari D Admitting Unavailable Kirnus, Ari D Attending Unavailable Kirnus, Ari D Referring Unavailable NONE, XXXX Referring Unavailable DAVID Betancourt Attending Unavailable Allergies Allergy Classification Reported Allergen(s) Allergy Type Date of Onset Reaction(s) Facility Cephalosporins (antibiotic) (2 sources) Cephalexin Drug Allergy 12-28-19 24 hives/swelling , Nausea [facility] (19 sources) Cephalexin; Translations: [Cephalexin] Drug Allergy 11-20-19 14 Head and neck swelling (finding) [facility] (9 sources) diphenhydrAMINE; Translations: [diphenhydramine] Drug Allergy Swelling [facility] (1 source) Keflex *CEPHALOSPORINS* Propensity to adverse reactions Unknown [facility] Other (1 source) Allergies Reconciled Propensity to adverse reactions Unknown [facility] Other (1 source) patient allergy list reviewed by nurse or physicia Propensity to adverse reactions 09-05-19 14 Comment:Done [facility] Other (16 sources) Cephalexin; Translations: [cephalexin] Drug Allergy 10-26-19 24 [facility] (17 sources) Cephalosporins (Antibiotic); Translations: [Cephalosporins] Allergy to substance 02-28-20 [facility] (6 sources) diphenhydrAMINE Drug Allergy 05-19-20 [facility] (1 source) ALLERGIES NOT ON FILE; Translations: [ALLERGIES NOT ON FILE] Propensity to adverse reactions (disorder) [facility] 3 Repository Medications Current Medications Medication Drug [...] nasal route twice daily Flonase 0.05 mg/inh [place] 1 spray(s), Nasal, BID, 16 gram, Refill(s) [...] 06/27/2022 Active take 1 tablet by everett once daily hydroCHLOROthiazide 25 MG TAKE 1 [...] screening for malignant neoplasm of cervix] Onset: 2 Episodic Other skin disorders (1 source) Generalized [...] Test Name Value Interpretation Reference Range Facility [facility] Office/ in Noteon 04-03-2025 [facility] V[facility] Office/Clinic Note [facility] V[facility] Office/Clinic Note Chief Complaint 6 week follow up History of Present Illness Patient is a 49-year-old female with past medical history of heart palpitations, history of syncope. Event monitor from 06/2024 showed underlying sinus rhythm and less than 0.01% ectopic beats, but patient did have a ventricular ectopic run of less than 5 beats with a heart rate of 85 bpm at 1 point. Patient comes in for about 2-month follow-up today. Reviewed prior event monitor, echo, outside stress test. At last visit, I saw patient at which time blood tests were ordered to see if there was any electrolyte abnormality that would be contributing to her palpitations. Really the only abnormal finding on her labs was hypokalemia and potassium supplementation was sent for patient x 1 month. Patient reports that heart fluttering/palpitati ons has been significantly better compared to last visit. She states that she thinks she has only had 5 mild episodes of palpitations in the past couple months since she was last in the office. Patient reports that she has had pretty much no associated chest pain since that time either. Patient reports that she still has a couple tablets of her potassium supplementation left and want her to get labs prior to her seeing if she needs to continue it or not. Patient is taking HCTZ 12.5 mg daily which she reports that she has been on for roughly 20 years. She states that she was initially given into it for swelling in her lower extremities and is not having any significant swelling at this time. Wondering if this could be affecting her potassium levels. Patient denies chest pain, shortness of breath, and swelling in lower legs. REVIEWED PRIOR NOTE FROM 02/04/2025:: Patient comes in for acute visit today. She was most recently seen on 05/2024 due to issues with palpitations. Event monitor was ordered for patient at that time and results are listed above. Patient reports that she has not been feeling all that well recently. Patient states that she has been having some left-sided chest pain that seems to start almost under her axilla and then radiate to the left side of her chest. Patient states that she cannot think of any specific pattern or certain times when this pain does come on, but has been noticing it more often here recently. Patient reports that when she has chest pain, she almost always has some fluttering of her chest as well. She states that this pain and fluttering is coming on pretty much daily at this point. She cannot put any pattern to this or related to any activity. She does have a history of anxiety and has been taking more Xanax lately than she has in the past. Her sertraline was recently decreased to see if it was contributing to palpitations, but patient has not noticed a difference thus far but has only been on the lower dose for short period of time. Patient has not had blood test checked anytime recently. Review of Systems ROS - Provider Constitutional: no fever, no chills, no sweats, no weakness Respiratory: no shortness of breath, no cough Cardiovascular: no chest pain, positive for heart palpitations Neuro: no dizziness. no loss of consciousness Physical Exam Vitals & Measurements HR: 79(Peripheral) RR: 18 BP: 132/78 SpO2: 97% HT: 149 cm HT: 59 in WT: 216.273 lb WT: 98.1 kg BMI: 44.19 General: alert, no acute distress Cardiovascular: regular rate and rhythm, no murmur normal peripheral perfusion Respiratory: Lungs CTAB, respirations non labored Extremities: no edema left lower extremity. no edema right lower extremity Neurological: oriented x 4, LOC appropriate for age, speech normal Skin: Warm, dry, intact- no rash or concerning lesions Cardiac Diagnostics Event monitor from 06/16/2024: FINDINGS: Predominant underlying rhythm was sinus with [...] ventricular arrhythmias, clinically significant pauses, atrial fibrillation. [2] (07/13/2022 08:46 EST Echo Transthoracic Complete) Interpretation Summary No comparison study is available. Ejection Fraction = 60-65%. Normal diastolic function. The left ventricular wall motion is normal. Right ventricular systolic pressure is 24 mmHg. Assessment/Plan 1. Heart palpitations (R00.2: Palpitations) Patient reports that palpitations have significantly improved since last visit. She has had only very minor issues with palpitations since last visit. Patient can think so only 5 mild occasions and has not (more content not included)... Normal [facility] [place] Comment on above: Result Comment: Elec tronically Signed By: Serafin HERNANDEZ, Jose Miguel Babcock\.fernanda\Date and Time Signed: 04/03/25 14:23 EDT Heart and Vascular Office/Cl inic Noteon 02-06-2025 Heart and Vascular Office/Clinic Note Heart and Vascular Office/Clinic Note Chief Complaint chest pain, heart flutter History of Present Illness Patient is a 49-year-old female with past medical history of heart palpitations, history of syncope. Event monitor from 06/2024 showed underlying sinus rhythm and less than 0.01% ectopic beats, but patient did have a ventricular ectopic run of less than 5 beats with a heart rate of 85 bpm at 1 point. Patient comes in for acute visit today. She was most recently seen on 05/2024 due to issues with palpitations. Event monitor was ordered for patient at that time and results are listed above. Patient reports that she has not been feeling all that well recently. Patient states that she has been having some left-sided chest pain that seems to start almost under her axilla and then radiate to the left side of her chest. Patient states that she cannot think of any specific pattern or certain times when this pain does come on, but has been noticing it more often here recently. Patient reports that when she has chest pain, she almost always has some fluttering of her chest as well. She states that this pain and fluttering is coming on pretty much daily at this point. She cannot put any pattern to this or related to any activity. She does have a history of anxiety and has been taking more Xanax lately than she has in the past. Her sertraline was recently decreased to see if it was contributing to palpitations, but patient has not noticed a difference thus far but has only been on the lower dose for short period of time. Patient has not had blood test checked anytime recently. Review of Systems PHQ Score Initial Depression Screen Score: 0 SCORE ROS - Provider Constitutional: no fever, no chills, no sweats, no weakness Respiratory: no shortness of breath, no cough Cardiovascular: no chest pain Neuro: no dizziness. no loss of consciousness Physical Exam Vitals & Measurements HR: 74(Peripheral) RR: 20 BP: 145/92 SpO2: 97% HT: 59 in HT: 149 cm WT: 211.203 lb WT: 95.8 kg BMI: 43.15 General: alert, no acute distress Cardiovascular: regular rate and rhythm, no murmur normal peripheral perfusion Respiratory: Lungs CTAB, respirations non labored Extremities: no edema left lower extremity. no edema right lower extremity Neurological: oriented x 4, LOC appropriate for age, speech normal Skin: Warm, dry, intact- no rash or concerning lesions Cardiac Diagnostics Event monitor from 06/16/2024: FINDINGS: Predominant underlying rhythm was sinus with [...] ventricular arrhythmias, clinically significant pauses, atrial fibrillation. [2] (07/13/2022 08:46 EST Echo Transthoracic Complete) Interpretation Summary No comparison study is available. Ejection Fraction = 60-65%. Normal diastolic function. The left ventricular wall motion is normal. Right ventricular systolic pressure is 24 mmHg. Assessment/Plan 1. Chest pain (R07.9: Chest pain, unspecified) Patient has been having some chest discomfort alongside some heart fluttering pretty much daily here recently. From what patient describes, not 100% sure that this is cardiac related. However, I did recommend the patient have a stress test. She states that she did do a stress test about 1-2 years ago at [facility] and I do not see those results in our system at this time. Patient did have normal echo and event monitor in the past. So, we will start with blood test to see if this is causing any palpitations that are then leading to the pain. Also offered patient a coronary calcium score to further evaluate chest discomfort as an elevated score it could correlate to her ongoing chest discomfort. 2. Heart palpitations (R00.2: Palpitations) See #1. Has wore 2 different monitors in the past and both showed no significant abnormality. Start with blood test and potentially get a coronary calcium score if everything comes back normal. Follow-up with me in 6 weeks or sooner if needed Portions of this record may have been created with voice recognition artificial intelligence software, specifically [employer], [employer] and or [email or web address]. Substitutions may have occurred due to the inherent limitations of voice recognition and artificial intelligence software. Total time spent preparing for the encounter, evaluating and assessing the patient, documenting the visit, and ordering appropriate follow-up work was 35 minutes. Follow-up No (more content not included)... Normal [facility] [place] Comment on above: Result Comment: Elec tronically Signed By: Jose Miguel Betancourt PA-C\Date and Time Signed: 02/06/25 16:22 EDT MM TOMOSYNTHESIS SCREENING B Ion 12-19-2024 [place] [address] Mammography Report Signed Patient: MICHAELLE HILL MR#: [id number] : 1975 Acct:[id number] Age/Sex: 49 / F ADM Date: 12/19/24 Loc: MAMMO Attending Dr: Matti Madden D.O. Ordering Physician: Matti Madden D.O. Results: Date of Service: 12/19/24 Follow Up: Procedure(s): MM tomosynthesis screening BI Accession Number(s): [id number] cc: Addison Lawler M.D.; Matti Madden D.O. Patient Name: MICHAELLE HILL MR#: [id number] : 1975 Exam Date: 12/19/2024 Ordering Doctor: DR MATTI MADDEN . RADIOLOGY REPORT PROCEDURE: MM TOMOSYNTHESIS [...] breast cancer at age 46. LOCATION: [facility] BREAST COMPOSITION: There are scattered areas [...] Signed By: 12/19/24 1410 DD/ 1410 TD/TT: Machine Binder Stripper: [facility] Radiology, Radiologist, MD - 12/19/2024 [place] [address] Mammography Report Signed Patient: MICHAELLE HILL MR#: [id number] : 1975 Acct:[id number] Age/Sex: 49 / F ADM Date: 12/19/24 Loc: MAMMO Attending Dr: Matti Madden D.O. Ordering Physician: Matti Madden D.O. Results: Date of Service: 12/19/24 Follow Up: Procedure(s): MM tomosynthesis screening BI Accession Number(s): [id number] cc: Addison Lawler M.D.; Matti Madden D.O. Patient Name: MICHAELLE HILL MR#: [id number] : 1975 Exam Date: 12/19/2024 Ordering Doctor: DR MATTI MADDEN . RADIOLOGY REPORT PROCEDURE: MM TOMOSYNTHESIS [...] breast cancer at age 46. LOCATION: [facility] BREAST COMPOSITION: There are scattered areas [...] Dictated By: Adalid Santiago D.O. Signed By: 12/19/241409 DD/ 09 TD/TT: Machine Binder Stripper: [facility] Radiology Study observation (narrative) [facility] MM TOMOSYNTHESIS SCREENING B IOrdered By: Radiologist Radiology on 12-19-2024 [facility] Sols Work Phone: Pap IG, CtNg, rfx HPV Aptima on 07-28-2024 PAP Chlamydia TIMMY Negative Normal Negative [facility] Comment on above: Performed By: #### P AP #### [facility] , PAP Gonococcus Negative Normal Negative [facility] Comment on above: Result Comment: Perf ormed at: WB - [facility] [id number] Direct Customer Service Representative: Jazzy Jimenez MD, Phone: [phone] Performed at: =G - [facility] [id number] Direct Customer Service Representative: Jazzy Jimenez MD, Phone: [phone] PERFORMED BY: [facility] [address] [place] [address] PATHOLOGIST MACHINE BINDER STRIPPER MOISES CROFT M.D. Performed By: #### P AP #### [facility] , Pap IG Note Normal . [facility] Comment on above: Result Comment: TEST S RESULT FLAG UNITS REF RANGE LAB Clinician Provided Cytology Information No. of containers..01 ThinPrep Vial DIAGNOSIS: 01 NEGATIVE FOR INTRAEPITHELIAL LESION OR MALIGNANCY. THIS SPECIMEN WAS RESCREENED PART OF OUR IT GENERALIST PROGRAM. Specimen adequacy: 01 Satisfactory for evaluation. No endocervical component is identified. Performed by: Salena Bledsoe, Transit Specialist (ASCP) QC reviewed by: Albina Messer Transit Specialist . 01 Note: Note 01 The Pap [...] <-Panic Low,>-Panic High,A-Abnormal,AA-Critical Abnormal Performed at: [address] [id number] Jazzy Jimenez MD, Performed By: #### P AP [id number] #### [facility] , Event Monitoron 06-20-2024 Event [...] BY: Ari Bowen MD ca Dictated: 06/16/2024 [id number] Transcribed: 06/19/2024 Normal [facility] [place] Comment on above: Result Comment: Elec tronically Signed By: Jessi KAHN, Ari Childress.fernanda\Date and Time Signed: 06/20/24 16:09 EST Heart [...] ligation, Tonsillectomy. Medications Augmentin Flonase 0.05 mg/inh [place], 1 spray(s), Nasal, BID hydrochlorothiazide 12.5 mg [...] COPD: Father. Stroke: Grandparent and Grandparent. Normal [facility] [place] Comment on above: Result Comment: Elec tronically Signed By: Jessi KAHN, Ari Avery\.br\Date and Time Signed: 05/21/24 15:40 EST Bryant 12-28-2023 L Specimen: [id number] Received: 12/28/23 Status: DANDRE Rodriguez Num: [id number] Spec Type: Surgical Subm Dr: Jennifer Akers DO Tissues: A Colon Biopsy (RT COLON BX) B Colon Biopsy (ASC POLYP) C Colon Biopsy (LT COLON BX) Procedures: HE/6, Gross/Micro L4/3 Age/ Patient Sex Location Account Attending Physician Michaelle Hill 48/F [id number] Jennifer Akers DO SPEC NUM: [id number] RECD: 12/28/23 STATUS: DANDRE RODRIGUEZ NUM: [id number] SYEDA: 12/28/23- SUBM DR: Jennifer Akers DO ENTERED: 12/28/[address] [facility] [address]: SPEC TYPE: Surgical DEPT: S ORDERED: [...] tissue fragments ranging from 0.3 x Specimen: [id number] Received: 12/28/23 Status: DANDRE Rodriguez Num: [id number] Spec Type: Surgical Subm Dr: Jennifer Akers DO Tissues: A Colon Biopsy (RT COLON BX) B Colon Biopsy (ASC POLYP) C Colon Biopsy (LT COLON BX) Procedures: HE/6, Gross/Micro L4/3 Patient: Michaelle Hill [id number] (Continued) Specimen: [id number] Received: 12/28/23 (Continued) Gross Description (Continued) Signed (signature on file) Moises Croft MD 12/31/23 1510 Specimen: [id number] Received: 12/28/23 Status: DANDRE Rodriguez Num: [id number] Spec Type: Surgical Subm Dr: Jennifer Akers, Tissues: A Colon Biopsy (RT COLON BX) B Colon Biopsy (ASC POLYP) C Colon Biopsy (LT COLON BX) Procedures: HE/6, Gross/Micro L4/3 Patient: Michaelle Hill [id number] (Continued) Specimen: [id number] Received: 12/28/23 (Continued) Gross Description (Continued) 0.2 x 0.1 cm to 0.1 x 0.1 x 0.1 cm, entirely submitted in C1. CPT Codes 03644h1 Specimen: [id number] Received: 12/28/23 Status: DANDRE Rodriguez Num: [id number] Spec Type: Surgical Subm Dr: Jennifer Akers DO Tissues: A Colon Biopsy (RT COLON BX) B Colon Biopsy (ASC POLYP) C Colon Biopsy (LT COLON BX) Procedures: HE/Ezekiel, Alessia/Nasreen L4/3 Patient: Michaelle Hill [id number] (Continued) Signed (signature on file) Moises Croft MD 12/31/23 1510 Normal [facility] Basophils Auto (Bld) [#/Vol] on 11-03-2023 Basophils (Bld) [#/Vol] 0.0 10 3/uL 0.0-0.1 [facility] Basophils/100 WBC Auto (Bld) on 11-03-2023 Basophils/100 WBC (Bld) 0.6 % 0.2-2.0 [facility] Cholesterol in LDL Calc [Mas s/Vol]on 11-03-2023 Cholesterol in LDL [Mass/Vol] 99.0 mg/dL [facility] Comment on above: <100 mg/dl [id number] 0-129 mg/dl NEAR OR ABOVE [id number] mg/dl BORDERLINE [id number] mg/dl HIGH>190 mg/dl VERY HIGH Cholesterol in VLDL Calc [Ma ss/Vol]on 11-03-2023 Cholesterol in VLDL [Mass/Vol] 13.4 mg/dL [facility] Eosinophils/100 WBC Auto (Bl d)on 11-03-2023 Eosinophils/100 WBC (Bld) 1.8 % 0.9-7.0 [facility] Erythrocyte distribution wid th Auto (RBC) [Ratio]on 11-03-2023 Erythrocyte distribution width (RBC) [Ratio] 13.1 % 11.0-15.0 [facility] Estimated glomerular filtrat ion rate (GFR) non- Americanon 11-03-2023 GFR/1.73 sq M.predicted among non-blacks MDRD (S/P/Bld) [Vol rate/Area] mL/min/{1.73_m2} >=60 [facility] Globulin Calc (S) [Mass/Vol] on 11-03-2023 Globulin (S) [Mass/Vol] 4.0 g/dL [facility] Hematocrit Auto (Bld) [Volum e fraction]on 11-03-2023 Hematocrit (Bld) [Volume fraction] 44.6 % 36.0-48.0 [facility] Hemoglobin [Mass/volume] in Bloodon 11-03-2023 Hemoglobin (Bld) [Mass/Vol] 14.5 g/dL 12.0-16.0 [facility] Laboratory - Chemistry and C hemistry - challengeon 11-03-2023 Albumin [Mass/Vol] 3.7 g/dL 3.4-5.0 [facility] [place] [facility] ALP [Catalytic activity/Vol] 79 U/L 46-116 [facility] ALT [Catalytic activity/Vol] 37 U/L 14-59 [facility] AST [Catalytic activity/Vol] 18 U/L 15-37 [facility] Bilirubin [Mass/Vol] 0.6 mg/dL 0.2-1.0 [facility] Calcium [Mass/Vol] 9.6 mg/dL 8.5-10.1 [facility] Chloride [Moles/Vol] 101 mmol/L 98-107 [facility] Cholesterol [Mass/Vol] 188 mg/dL <=200 [facility] Cholesterol in HDL [Mass/Vol] 76 mg/dL High 40-60 [facility] Comment on above: > or =60 mg/dl - LOW CARDIOVASCULAR RISK<40 mg/dl - HIGH CARDIOVASCULAR RISK CO2 [Moles/Vol] 31.0 mmol/L 21.0-32.0 [facility] Creatinine [Mass/Vol] 0.68 mg/dL 0.55-1.02 [facility] GFR/1.73 sq M.predicted MDRD (S/P/Bld) [Vol rate/Area] mL/min/{1.73_m2} >=60 [facility] Glucose [Mass/Vol] 98 mg/dL 74-106 [facility] Potassium [Moles/Vol] 3.9 mmol/L 3.5-5.1 [facility] Protein [Mass/Vol] 7.7 g/dL 6.4-8.2 [facility] Sodium [Moles/Vol] 141 mmol/L 136-145 [facility] Triglyceride [Mass/Vol] 67 mg/dL <=150 [facility] TSH Qn 2.742 m[IU]/L 0.358-3.740 [facility] Urea nitrogen [Mass/Vol] 13.0 mg/dL 7.0-18.0 [facility] Urea nitrogen/Creatinine [Mass ratio] 19.1 mg/mg [facility] Laboratory - Hematology and Cell countson 11-03-2023 Immature granulocytes/100 WBC (Bld) 0.2 % 0.0-0.5 [facility] Leukocytes [#/volume] correc bert for nucleated erythrocytes in Blood by Automated counon 11-03-2023 WBC corrected for nucl RBC Auto (Bld) [#/Vol] 5.0 10 3/uL 4.0-11.0 [facility] Lymphocytes Auto (Bld) [#/Vo l]on 11-03-2023 Lymphocytes (Bld) [#/Vol] 0.8 10 3/uL Low 1.2-3.8 [facility] Lymphocytes/100 WBC Auto (Bl d)on 11-03-2023 Lymphocytes/100 WBC (Bld) 16.2 % Low 20.5-60.0 [facility] MCH Auto (RBC) [Entitic mass ]on 11-03-2023 MCH (RBC) [Entitic mass] 27.9 pg 26.7-34.0 [facility] MCHC Auto (RBC) [Mass/Vol]on 11-03-2023 MCHC (RBC) [Mass/Vol] 32.5 g/dL 29.9-35.2 [facility] MCV Auto (RBC) [Entitic vol] on 11-03-2023 MCV (RBC) [Entitic vol] 85.8 fL 81.0-99.0 [facility] Monocytes Auto (Bld) [#/Vol] on 11-03-2023 Monocytes (Bld) [#/Vol] 0.3 10 3/uL 0.3-0.8 [facility] Monocytes/100 WBC Auto (Bld) on 11-03-2023 Monocytes/100 WBC (Bld) 5.4 % 1.7-12.0 [facility] Neutrophils Auto (Bld) [#/Vo l]on 11-03-2023 Neutrophils (Bld) [#/Vol] 3.8 10 3/uL 1.4-6.5 [facility] Neutrophils/100 WBC Auto (Bl d)on 11-03-2023 Neutrophils/100 WBC (Bld) 75.8 % High 43.0-75.0 [facility] No Panel Informationon 11-02 Eosinophils # (Auto) 0.1 10 3/uL 0.0-0.7 [facility] Immature Granulocyte # (Auto) 0.01 10 3/uL 0.00-0.03 [facility] Platelet mean volume Auto (B ld) [Entitic vol]on 11-03-2023 Platelet mean volume (Bld) [Entitic vol] 10.0 fL 9.5-13.5 [facility] Platelets Auto (Bld) [#/Vol] on 11-03-2023 Platelets (Bld) [#/Vol] 199 10 3/uL 150-450 [facility] RBC Auto (Bld) [#/Vol]on RBC (Bld) [#/Vol] 5.20 10 6/uL 4.20-5.40 [facility] Serum or plasma albumin/glob ulin mass ratioon 11-03-2023 Albumin/Globulin [Mass ratio] 0.9 {ratio} [facility] Serum or plasma anion gap de terminationon 11-03-2023 Anion gap [Moles/Vol] 12.9 mmol/L [facility] Serum or plasma total choles terol/high density lipoprotein (HDL) cholesterol mass laureano 11-03-2023 Cholesterol.total/Chol esterol in HDL [Mass ratio] 2.5 {ratio} [facility] Comment on above: 3.3 - 4.4 LOW RISK4. 4 - 7.1 AVERAGE RISK7.1 - 11.0 MODERATE RISK>11.0 HIGH RISK MG MAMM SCREEN 3D JUSTYNA CADon 10-03-2022 MG MAMM SCREEN 3D JUSTYNA CAD Patient: MICHAELLE HILL Exam Date: 10/03/2022 : 1975 Gender:F Ordering : DR MATTI MADDEN . Admission #: [id number] Family : Order #: [id number] CLICK HERE TO VIEW EXAM RADIOLOGY REPORT [...] breast cancer at age 46. LOCATION: [facility] BREAST COMPOSITION: Scattered areas fibroglandular density. [...] PALPABLE LUMP SHOULD BE BIOPSIED. Dictated by: Shweta Downey M.D. on 10/04/2022 at 07:30 Approved by: Shweta Downey M.D. on 10/04/2022 at 07:32 Normal [facility] CHEMISTRYOrdered By: SYSTEM SYSTEM on 06-27-2022 [...] 28.1 pg Normal 27.0 - 34.0 pg FT HemeAutoSS MCHC (RBC) [Mass/Vol] 33.2 g/dL Normal 31.4 - 36.0 gm/dL FT HemeAutoSS MCV (RBC) [Entitic vol] 84.4 fL Normal 80.0 - 100.0 fL FT HemeAutoSS Platelet mean volume (Bld) [Entitic vol] 8.2 fL Normal 6.4 - 10.8 fL FT HemeAutoSS Platelets (Bld) [#/Vol] 199.0 E9/L Normal 150.0 - 500.0 E9/L FT HemeAutoSS RBC (Bld) [#/Vol] 4.9 E12/L Normal 4.3 - 5.9 E12/L FT HemeAutoSS WBC corrected for nucl RBC Auto (Bld) [#/Vol] 5.4 E9/L Normal 4.0 - 11.0 E9/L [facility] HemeAutoSS US Venous, Unilat, Lower Ext Lefton [...] by Tino Higgins on 05/15/2022 1756 Normal [facility] MRI Knee w/o Lefton 03-24-20 MRI Knee w/o Left HISTORY: Knee pain [...] by Leticia Dumont on 03/24/2022 1600 Normal [facility] CBC AUTO DIFFon 03-19-2022 BASO # 0.0 103/ul Normal 0.0-0.1 [facility] Comment on above: Performed By: #### C BC #### [facility] [address] [address] [address] Melvi Daniels Basophils/100 WBC (Bld) 0.4 % Normal 0.2-2.0 [facility] Comment on above: Performed By: #### C BC #### [facility] [address] [place] [address] Dr. Melvi Daniels EO # 0.2 103/ul Normal 0.0-0.7 [facility] Comment on above: Performed By: #### C BC #### [facility] [address] [address] [address] Melvi Daniels Eosinophils/100 WBC (Bld) 2.1 % Normal 0.9-7.0 [facility] Comment on above: Performed By: #### C BC #### [facility] [address] [place] [address] Dr. Melvi Daniels Erythrocyte distribution width (RBC) [Ratio] 13.5 % Normal 11.0-15.0 [facility] Comment on above: Performed By: #### C BC #### [facility] [address] [place] [address] Dr. Melvi Daniels Hematocrit (Bld) [Volume fraction] 42.3 % Normal 36.0-48.0 [facility] Comment on above: Performed By: #### C BC #### [facility] [address] [place] [address] Dr. Meliv Daniels Hemoglobin (Bld) [Mass/Vol] 13.5 g/dL Normal 12.0-16.0 [facility] Comment on above: Performed By: #### C BC #### [facility] [address] [place] [address] Dr. Melvi Daniels IG # 0.01 10e3/ul Normal 0.00-0.03 [facility] Comment on above: Performed By: #### C BC #### [facility] [address] [place] [address] Dr. Mevli Daniels IG % 0.1 % Normal 0.0-0.5 [facility] Comment on above: Performed By: #### C BC #### [facility] [address] [place] [address] Dr. Melvi Daniels LYMPH # 1.1 103/ul Critically low 1.2-3.8 [facility] Comment on above: Performed By: #### C BC #### [facility] [address] [place] [address] Dr. Melvi Daniels Lymphocytes/100 WBC (Bld) 15.1 % Critically low 20.5-60.0 [facility] Comment on above: Performed By: #### C BC #### [facility] [address] [place] [address] Dr. Melvi Daniels MANUAL DIFF REQ NO Normal [facility] Comment on above: Performed By: #### C BC #### [facility] [address] [place] [address] Dr. Melvi Daniels MCH (RBC) [Entitic mass] 27.9 pg Normal 26.7-34.0 [facility] Comment on above: Performed By: #### C BC #### [facility] [address] [address] [address] Melvi Daniels MCHC (RBC) [Mass/Vol] 31.9 g/dL Normal 29.9-35.2 [facility] Comment on above: Performed By: #### C BC #### [facility] [address] [address] [address] Melvi Daniels MCV (RBC) [Entitic vol] 87.4 fL Normal 81.0-99.0 [facility] Comment on above: Performed By: #### C BC #### [facility] [address] [address] [address] Melvi Daniels MONO # 0.4 103/ul Normal 0.3-0.8 [facility] Comment on above: Performed By: #### C BC #### [facility] [address] [place] [address] Dr. Melvi Daniels Monocytes/100 WBC (Bld) 6.0 % Normal 1.7-12.0 [facility] Comment on above: Performed By: #### C BC #### [facility] [address] [place] [address] Dr. Melvi Daniels NEUT # 5.4 103/ul Normal 1.4-6.5 [facility] Comment on above: Performed By: #### C BC #### [facility] [address] [place] [address] Dr. Melvi Daniels Neutrophils/100 WBC (Bld) 76.3 % Critically high 43.0-75.0 [facility] Comment on above: Performed By: #### C BC #### [facility] [address] [place], [place] [id number] Dr. Melvi Daniels Platelet mean volume (Bld) [Entitic vol] 9.7 fL Normal 9.5-13.5 [facility] Comment on above: Performed By: #### C BC #### [facility] [address] [place] [address] Dr. Melvi Daniels PLT 188 103/ul Normal 150-450 [facility] Comment on above: Performed By: #### C BC #### [facility] [address] [address] [address] Melvi Daniels RBC 4.84 106/ul Normal 4.20-5.40 [facility] Comment on above: Performed By: #### C BC #### [facility] [address] [place] [address] Dr. Melvi Daniels WBC 7.0 103/ul Normal 4.0-11.0 [facility] Comment on above: Performed By: #### C BC #### [facility] [address] [place] [address] Dr. Melvi Daniels Covid-19 PCR (CVDTB)on 03-09 SARS-CoV-2 (COVID-19) RNA TIMMY+probe Ql (Unsp spec) Not detected Normal NOT DETECTED [facility] Comment on above: Result Comment: When [...] for this test is supported by the Clerk Operator of Health and Human Service's declaration that [...] used). Performed By: #### C VDTBH #### [facility] [address] [place] [address] Dr. Melvi Daniels D-DIMERon 03-19-2022 D-DIMER 0.36 mg/L FEU Normal <=0.59 [facility] Comment on above: Performed By: #### D DIM #### [facility] [address] [place] [address] Dr. Melvi Daniels D-DIMER COMMENTS SEE BELOW Normal [facility] Comment on above: Result Comment: Incr eases [...] hospitalization. Performed By: #### D DIM #### [facility] [address] [place] [address] Dr. Melvi Daniels PROF 14(COMP METB)on 022 Albumin [Mass/Vol] 3.7 g/dL Normal 3.4-5.0 [facility] Comment on above: Performed By: #### C MP #### [facility] [address] [place] [address] Dr. Melvi Daniels Albumin/Globulin [Mass ratio] 1.1 {ratio} Normal [facility] Comment on above: Performed By: #### C MP #### [facility] [address] [place] [address] Dr. Melvi Daniels ALP [Catalytic activity/Vol] 74 U/L Normal 46-116 [facility] Comment on above: Performed By: #### C MP #### [facility] [address] [place] [address] Dr. Melvi Daniels ALT [Catalytic activity/Vol] 31 U/L Normal 14-59 [facility] Comment on above: Performed By: #### C MP #### [facility] [address] [place] [address] Dr. Melvi Daniels Anion gap [Moles/Vol] 9.4 mmol/L Normal [facility] Comment on above: Performed By: #### C MP #### [facility] [address] [place] [address] Dr. Melvi Daniels AST [Catalytic activity/Vol] 11 U/L Critically low 15-37 [facility] Comment on above: Performed By: #### C MP #### [facility] [address] [place] [address] Dr. Melvi Daniels Bilirubin [Mass/Vol] 0.3 mg/dL Normal 0.2-1.0 [facility] Comment on above: Performed By: #### C MP #### [facility] [address] [address] [address] Melvi Daniels Calcium [Mass/Vol] 8.8 mg/dL Normal 8.5-10.1 [facility] Comment on above: Performed By: #### C MP #### [facility] [address] [address] [address] Melvi Daniels Chloride [Moles/Vol] 102 mmol/L Normal 98-107 [facility] Comment on above: Performed By: #### C MP #### [facility] [address] [address] [address] Melvi Daniels CO2 [Moles/Vol] 31.6 mmol/L Normal 21.0-32.0 [facility] Comment on above: Performed By: #### C MP #### [facility] [address] [address] [address] Melvi Daniels Creatinine [Mass/Vol] 1.28 mg/dL Critically high 0.55-1.02 [facility] Comment on above: Performed By: #### C MP #### [facility] [address] [place] [address] Dr. Melvi Daniels EGFR-AF GREENLANDIC 55 mL/min/1.73m2 Critically low >=60 [facility] Comment on above: Performed By: #### C MP #### [facility] [address] [address] [address] Melvi Daniels EGFR-NON AF GREENLANDIC 45 mL/min/1.73m2 Critically low >=60 [facility] Comment on above: Performed By: #### C MP #### [facility] [address] [place] [address] Dr. Melvi Daniels Globulin (S) [Mass/Vol] 3.4 g/dL Normal [facility] Comment on above: Performed By: #### C MP #### [facility] [address] [place] [address] Dr. Melvi Daniels Glucose [Mass/Vol] 103 mg/dL Normal 74-106 [facility] Comment on above: Performed By: #### C MP #### [facility] [address] [address] [address] Melvi Daniels Potassium [Moles/Vol] 4.0 mmol/L Normal 3.5-5.1 [facility] Comment on above: Performed By: #### C MP #### [facility] [address] [address] [address] Melvi Daniels Protein [Mass/Vol] 7.1 g/dL Normal 6.4-8.2 [facility] Comment on above: Performed By: #### C MP #### [facility] [address] [address] [address] Melvi Daniels Sodium [Moles/Vol] 139 mmol/L Normal 136-145 [facility] Comment on above: Performed By: #### C MP #### [facility] [address] [address] [address] Melvi Daniels Urea nitrogen [Mass/Vol] 17.0 mg/dL Normal 7.0-18.0 [facility] Comment on above: Performed By: #### C MP #### [facility] [address] [address] [address] Melvi Daniels Urea nitrogen/Creatinine [Mass ratio] 13.3 mg/mg Normal [facility] Comment on above: Performed By: #### C MP #### [facility] [address] [address] [address] Melvi Daniels XR CHEST 1 Von [...] TREVOR ROSE Date: 2022-03-19 20:57 Normal [facility] XR KNEE LT 4V or >on 022 XR KNEE LT 4V or > EXAM: XR KNEE LT 4V or > HISTORY: Pain post injury. COMPARISON: None FINDINGS: There is no evidence of an acute fracture, subluxation or bony destruction. IMPRESSION: No acute osseous abnormality detected. Electronically authenticated by: LETICIA SAENZ Date: 2022-03-13 13:11 Normal [facility] SARS-CoV-2 (COVID-19) RNA TIMMY+probe Ql (Unsp spec) Not detected Normal NOT DETECTED [facility] Comment on above: Result Comment: This test is not yet approved or cleared by the [place] FDA. When there are no FDA-approved or cleared tests available, and other criteria are met, FDA can make tests available under an emergency access mechanism called an Emergency Use Authorization (EUA). The EUA for this test is supported by the [place] of Health and Human Service's (HHS's) declaration [...] SARS-CoV-2. Performed By: #### C VDTB #### [facility] [address] [place] [address] Dr. Melvi Daniels PAP ACOG PANEL 2: 30 to 65on 12-12-2021 . . Normal [facility] Comment on above: Result Comment: Perf ormed at: WB Performed By: #### [id number] #### [facility] [address] [place] [address] Dr. Melvi Daniels Age Gdln ACOG Testing 30-65 Normal [facility] Comment on above: Performed By: #### [id number] #### [facility] [address] [place] [address] Dr. Melvi Daniels DIAGNOSIS: Comment Normal [facility] Comment on above: Result Comment: NEGA TIVE FOR INTRAEPITHELIAL LESION OR MALIGNANCY. Performed at: WB Performed By: #### [id number] #### [facility] [address] [place] [address] Dr. Melvi Daniels HPV Aptima Negative Normal Negative [facility] Comment on above: Result Comment: This nucleic acid amplification test detects fourteen high-risk HPV types (16,18,31,33,35,39,45,51,52,56,58,59,66,68) without differentiation. Performed at: =G Performed By: #### [id number] #### [facility] [address] [place] [address] Dr. Melvi Daniels Methodology: Comment Normal [facility] Comment on above: Result Comment: This liquid based ThinPrep(R) pap test was screened with the use of an image guided system. Performed at: WB Performed By: #### [id number] #### [facility] [address] [place] [address] Dr. Melvi Daniels Note: Comment Normal [facility] Comment on above: Result Comment: The Pap smear is a screening test designed to aid in the detection of premalignant and malignant conditions of the uterine cervix. It is not a diagnostic procedure and should not be used as the sole means of detecting cervical cancer. Both false-positive and false-negative reports do occur. . Performed at: WB Performed By: #### [id number] #### [facility] [address] [place] [address] Dr. Melvi Daniels Performed by: Comment Normal [facility] Comment on above: Result Comment: Libra Del Rosario, Transit Specialist (ASCP) Performed at: WB Performed By: #### [id number] #### [facility] [address] [place] [address] Dr. Melvi Daniels Specimen adequacy: Comment Normal [facility] Comment on above: Result Comment: Sati sfactory for evaluation. Endocervical and/or squamous metaplastic cells (endocervical component) are present. Performed at: WB Performed By: #### [id number] #### [facility] [address] [place] [address] Dr. Melvi Daniels Vital Signs Date Time Vital Sign Value Performing Clinician Naye phillip 01-23-2025 11:48-0400 Body height 149.86 cm Addison Lawler MD Work Phone: [facility] 01-23-2025 11:48-0400 Body mass index (BMI) [Ratio] 43.2 kg/m2 Addison Lawler MD Work Phone: [facility] 01-23-2025 11:48-0400 Body weight 97.06 kg Addison Lawler MD Work Phone: [facility] 01-23-2025 11:48-0400 Diastolic blood pressure 84 mm[Hg] Addison Lawler MD Work Phone: [facility] 01-23-2025 11:48-0400 Heart rate 64 /min Addison Lawler MD Work Phone: [facility] 01-23-2025 11:48-0400 Systolic blood pressure 148 mm[Hg] Addison Lawler MD Work Phone: [facility] 10-28-2024 13:48-0400 Body height 149.86 cm [facility] 10-28-2024 13:48-0400 Body mass index (BMI) [Ratio] 43 kg/m2 [facility] 10-28-2024 13:48-0400 Body weight 96.61 kg [facility] 10-28-2024 13:48-0400 Diastolic blood pressure 82 mm[Hg] [facility] 10-28-2024 13:48-0400 Heart rate 75 /min [facility] 10-28-2024 13:48-0400 Systolic blood pressure 122 mm[Hg] [facility] 09-25-2024 12:39-0400 Body height 152.4 cm Liban Bob MD Work Phone: [facility] 09-25-2024 12:39-0400 Body mass index (BMI) [Ratio] 41.01 kg/m2 Liban Bob MD Work Phone: [facility] 09-25-2024 12:39-0400 Body weight 95.25 kg Liban Bob MD Work Phone: [facility] 07-28-2024 08:37-0500 Body height 149.86 cm [facility] 07-28-2024 08:37-0500 Body mass index (BMI) [Ratio] 42.4 kg/m2 [facility] 07-28-2024 08:37-0500 Body weight 95.25 kg [facility] 07-28-2024 08:37-0500 Diastolic blood pressure 88 mm[Hg] [facility] 07-28-2024 08:37-0500 Heart rate 76 /min [facility] 07-28-2024 08:37-0500 Systolic blood pressure 134 mm[Hg] [facility] 06-23-2024 08:22-0500 Body height 152.4 cm Susan Galindo MD Work Phone: [facility] 06-23-2024 08:22-0500 Body mass index (BMI) [Ratio] 41.6 kg/m2 Susan Galindo MD Work Phone: [facility] 06-23-2024 08:22-0500 Body weight 96.62 kg Susan Galindo MD Work Phone: [facility] 06-23-2024 08:22-0500 Diastolic blood pressure 90 mm[Hg] Susan Galindo MD Work Phone: [facility] 06-23-2024 08:22-0500 Systolic blood pressure 150 mm[Hg] Susan Galindo MD Work Phone: [facility] 05-21-2024 15:10-0500 Blood Pressure Location [facility] 05-21-2024 15:10-0500 Diastolic blood pressure 86 mm[Hg] [facility] 05-21-2024 15:10-0500 Heart rate 62 /min [facility] 05-21-2024 15:10-0500 Respiratory rate 16 /min Ari Ku[facility] 05-21-2024 15:10-0500 SaO2% (BldA) [Mass fraction] 98 % [facility] Bow[facility] 05-21-2024 15:10-0500 Systolic blood pressure 132 mm[Hg] [facility] Bowen [facility] 05-19-2024 15:00-0500 Body height 149.9 cm Susan Galindo MD Work Phone: [facility] 05-19-2024 15:00-0500 Body mass index (BMI) [Ratio] 43.02 kg/m2 Susan Galindo MD Work Phone: [facility] 05-19-2024 15:00-0500 Body weight 96.62 kg Susan Galindo MD Work Phone: [facility] 05-19-2024 15:00-0500 Diastolic blood pressure 92 mm[Hg] Susan Galindo MD Work Phone: [facility] 05-19-2024 15:00-0500 Systolic blood pressure 146 mm[Hg] Susan Galindo MD Work Phone: [facility] 05-01-2024 14:16-0400 Body height 149.86 cm [facility] 05-01-2024 14:16-0400 Body mass index (BMI) [Ratio] 42.6 kg/m2 [facility] 05-01-2024 14:16-0400 Body weight 95.7 kg [facility] 05-01-2024 14:16-0400 Diastolic blood pressure 80 mm[Hg] [facility] 05-01-2024 14:16-0400 Heart rate 60 /min [facility] 05-01-2024 14:16-0400 SaO2% (BldA) [Mass fraction] 97 % [facility] 05-01-2024 14:16-0400 Systolic blood pressure 132 mm[Hg] [facility] 03-25-2024 13:56-0400 Body height 149.86 cm MD Addison Lawler Work Phone: [facility] 03-25-2024 13:56-0400 Body mass index (BMI) [Ratio] 42.4 kg/m2 MD Addison Lawler Work Phone: [facility] 03-25-2024 13:56-0400 Body weight 95.25 kg MD Addison Lawler Work Phone: [facility] 03-25-2024 13:56-0400 Diastolic blood pressure 85 mm[Hg] MD Addison Lawler Work Phone: [facility] 03-25-2024 13:56-0400 Heart rate 80 /min MD Addison Lawler Work Phone: [facility] 03-25-2024 13:56-0400 SaO2% (BldA) [Mass fraction] 92 % MD Addison Lawler Work Phone: [facility] 03-25-2024 13:56-0400 Systolic blood pressure 139 mm[Hg] MD Addison Lawler Work Phone: [facility] 01-29-2024 11:38-0400 Body height 149.86 cm MD Addison Lawler Work Phone: [facility] 01-29-2024 11:38-0400 Body mass index (BMI) [Ratio] 42 kg/m2 MD Addison Lawler Work Phone: [facility] 01-29-2024 11:38-0400 Body temperature 98.1 [degF] MD Addison Lawler Work Phone: [facility] 01-29-2024 11:38-0400 Body weight 94.34 kg MD Addison Lawler Work Phone: [facility] 01-29-2024 11:38-0400 Diastolic blood pressure 90 mm[Hg] MD Addison Lawler Work Phone: [facility] 01-29-2024 11:38-0400 Heart rate 58 /min MD Addison Lawler Work Phone: [facility] 01-29-2024 11:38-0400 SaO2% (BldA) [Mass fraction] 99 % MD Addison Lawler Work Phone: [facility] 01-29-2024 11:38-0400 Systolic blood pressure 143 mm[Hg] MD Addison Lawler Work Phone: [facility] 12-28-2023 09:39-0400 Diastolic blood pressure 82 mm[Hg] MD Addison Lawler Work Phone: [facility] 12-28-2023 09:39-0400 Heart rate 65 /min MD Addison Lawler Work Phone: [facility] 12-28-2023 09:39-0400 Respiratory rate 16 /min MD Addison Lawler Work Phone: [facility] 12-28-2023 09:39-0400 SaO2% (BldA) [Mass fraction] 95 % MD Addison Lawler Work Phone: [facility] 12-28-2023 09:39-0400 Systolic blood pressure 156 mm[Hg] MD Addison Lawler Work Phone: [facility] 12-28-2023 06:57-0400 Body height 149.86 cm MD Addison Lawler Work Phone: [facility] 12-28-2023 06:57-0400 Body weight 95.25 kg MD Addison Lawler Work Phone: [facility] 10-26-2023 09:37-0400 Body height 149.86 cm [facility] 10-26-2023 09:37-0400 Body mass index (BMI) [Ratio] 41.8 kg/m2 [facility] 10-26-2023 09:37-0400 Body weight 94.06 kg [facility] 10-26-2023 09:37-0400 Diastolic blood pressure 82 mm[Hg] [facility] 10-26-2023 09:37-0400 Heart rate 60 /min [facility] 10-26-2023 09:37-0400 Systolic blood pressure 124 mm[Hg] [facility] 09-19-2022 16:30-0400 Body height 149.86 cm Addison Lawler Other [facility] [employer] Other 09-19-2022 16:30-0400 Body mass index (BMI) [Ratio] 42.41 kg/m2 Addison Lawler Other [employer] [facility] [employer] Other 09-19-2022 16:30-0400 Body weight 95.26 kg Addison Lawler Other [facility] [employer] [facility] Other 09-19-2022 16:30-0400 Diastolic blood pressure 72 mm[Hg] Addison Lawler Other [employer] [facility] [employer] Other 09-19-2022 16:30-0400 SaO2% (BldA) [Mass fraction] 99 % Addison Lawler Other [employer] [facility] [employer] Other 09-19-2022 16:30-0400 Systolic blood pressure 124 mm[Hg] Addison Lawler Other [facility] [employer] Other 07-21-2022 16:15-0500 Blood Pressure Location [facility] 07-21-2022 16:15-0500 Diastolic blood pressure 82 mm[Hg] [facility] 07-21-2022 16:15-0500 Heart rate 76 /min [facility] 07-21-2022 16:15-0500 Respiratory rate 18 /min [facility] 07-21-2022 16:15-0500 SaO2% (BldA) [Mass fraction] 97 % [facility] 07-21-2022 16:15-0500 Systolic blood pressure 130 mm[Hg] [facility] 07-05-2022 14:49-0500 Diastolic blood pressure 90 mm[Hg] [facility] 07-05-2022 14:49-0500 Mean blood pressure 109 mm[Hg] [facility] 07-05-2022 14:49-0500 Systolic blood pressure 148 mm[Hg] [facility] 07-05-2022 14:34-0500 Blood Pressure Location [facility] 07-05-2022 14:34-0500 Diastolic blood pressure 90 mm[Hg] [facility] 07-05-2022 14:34-0500 Heart rate 78 /min [facility] 07-05-2022 14:34-0500 Respiratory rate 18 /min [facility] 07-05-2022 14:34-0500 SaO2% (BldA) [Mass fraction] 94 % [facility] 07-05-2022 14:34-0500 Systolic blood pressure 150 mm[Hg] Ever Christofferson [facility] 07-05-2022 13:57-0500 Heart rate 67 /min Alfredo Pompa [facility] 07-05-2022 13:57-0500 SaO2% (BldA) [Mass fraction] 94 % Alfredo Pompa [facility] 07-05-2022 13:57-0500 Respiratory rate 18 /min Alfredo Pompa [facility] 07-05-2022 13:57-0500 Diastolic blood pressure 82 mm[Hg] Alfredo Brown [facility] 07-05-2022 13:57-0500 Mean blood pressure 102 mm[Hg] Alfredo Brown [facility] 07-05-2022 13:57-0500 Systolic blood pressure 144 mm[Hg] Alfredo Pompa [facility] 07-05-2022 11:55-0500 Heart rate 74 /min Alfredo Pompa [facility] 07-05-2022 11:55-0500 SaO2% (BldA) [Mass fraction] 94 % Alfredo Pompa [facility] 07-05-2022 11:54-0500 Respiratory rate 18 /min Alfredo Pompa [facility] 07-05-2022 11:54-0500 Diastolic blood pressure 94 mm[Hg] Alfredo Pompa [facility] 07-05-2022 11:54-0500 Mean blood pressure 110 mm[Hg] Alfredo Brown [facility] 07-05-2022 11:54-0500 Systolic blood pressure 141 mm[Hg] Alfredo Brown [facility] 07-05-2022 10:47-0500 Heart rate 65 /min Alfredo Pompa [facility] 07-05-2022 10:47-0500 SaO2% (BldA) [Mass fraction] 97 % Alfredo Pompa [facility] 07-05-2022 10:47-0500 Respiratory rate 18 /min Alfredo Brown [facility] 07-05-2022 10:46-0500 Diastolic blood pressure 78 mm[Hg] Alfredo Brown [facility] 07-05-2022 10:46-0500 Mean blood pressure 93 mm[Hg] Alfredo Brown [facility] 07-05-2022 10:46-0500 Systolic blood pressure 124 mm[Hg] Alfredo Brown [facility] 07-05-2022 10:35-0500 Body temperature 97.7 [degF] Alfredo Brown [facility] 07-05-2022 10:35-0500 Respiratory rate 19 /min Alfredo Brown [facility] 07-05-2022 10:30-0500 Respiratory rate 15 /min Alfredo Brown [facility] 07-05-2022 10:25-0500 Respiratory rate 19 /min Alfredo Brown [facility] 07-05-2022 10:10-0500 Body temperature 97.7 [degF] Alfredo Brown [facility] 07-05-2022 07:34-0500 Blood Pressure Location Alfredo Brown [facility] 07-05-2022 07:34-0500 Heart rate 72 /min Alfredo Brown [facility] 07-05-2022 07:32-0500 Body temperature 97.88 [degF] Alfredo Brown [facility] 07-05-2022 07:32-0500 Blood Pressure Location Alfredo Brown [facility] 06-27-2022 10:44-0500 Diastolic blood pressure 87 mm[Hg] Alfredo Brown [facility] 06-27-2022 10:44-0500 Heart rate 74 /min Alfredo Pompa [facility] 06-27-2022 10:44-0500 Mean blood pressure 104 mm[Hg] Alfredo Pompa [facility] 06-27-2022 10:44-0500 Systolic blood pressure 138 mm[Hg] Alfredo Pompa [facility] 06-27-2022 10:43-0500 Heart rate 77 /min Alfredo Pompa [facility] 06-27-2022 10:43-0500 SaO2% (BldA) [Mass fraction] 97 % Alfredo Pompa [facility] 06-27-2022 10:43-0500 Diastolic blood pressure 87 mm[Hg] Alfredo Pompa [facility] 06-27-2022 10:43-0500 Mean blood pressure 106 mm[Hg] Alfredo Pompa [facility] 06-27-2022 10:43-0500 Systolic blood pressure 144 mm[Hg] Alfredo Pompa [facility] 02-19-2022 11:25-0400 Body height 149.86 cm Kimmy Alonzo Other [employer] [facility] [employer] Other 02-19-2022 11:25-0400 Body mass index (BMI) [Ratio] 40.39 kg/m2 Kimmy Alonzo Other [employer] Other 02-19-2022 11:25-0400 Body temperature 98.2 [degF] Kimmy Alonzo Other [employer] Other 02-19-2022 11:25-0400 Body weight 90.72 kg Kimmy Alonzo Other [employer] Other 02-19-2022 11:25-0400 Respiratory rate 18 /min Kimmy Alonzo Other [employer] Other 02-19-2022 11:25-0400 SaO2% (BldA) [Mass fraction] 97 % Kimmy Alonzo Other [employer] Other Encounters Encounter Date Encounter Type Care Provider Facility Start: 04-03-2025 End: 04-03-2025 ambulatory XXXX NONE Facility:[facility] Start: 02-04-2025 End: 02-04-2025 ambulatory MD Patricio Yee Facility:[facility] Start: 01-23-2025 End: 01-23-2025 ambulatory Addison Lawler MD Work Phone: [facility] Work Phone: Start: 01-23-2025 End: 01-23-2025 Patient encounter procedure Addison Lawler MD -[facility] Work Phone: Start: 12-19-2024 End: 12-19-2024 Clinisync Result Encounter Matti Maryanne DO Work Phone: [facility] Unsolicited Start: 12-19-2024 End: 12-19-2024 Clinisync Result Encounter Matti Maryanne DO Work Phone: [facility] Unsolicited Start: 10-28-2024 End: 10-28-2024 ambulatory [facility] Work Phone: Start: 10-28-2024 End: 10-28-2024 Patient encounter procedure [facility] Physician [facility] Work Phone: Start: 09-25-2024 End: 09-25-2024 Office consultation new/estab patient 40 min Liban Bob MD [facility] Comment on above: Deviated nasal septu m (Primary Dx); Nasal obstruction; Nasal deformity; Deviated septum; Nasal congestion; Swelling of nose; Hypertrophy of inferior nasal turbinate; Nasal alar collapse; Sleep-disordered breathing; Difficulty breathing Start: 09-25-2024 End: 09-25-2024 ambulatory LIBAN Avilez [facility] Start: 07-28-2024 End: 07-28-2024 Departed Referred Addison Lawler MD Work Phone: [facility] [place] Work Phone: Start: 07-28-2024 End: 07-28-2024 ambulatory Addison Lawler MD Work Phone: [facility] Work Phone: Start: 07-28-2024 End: 07-28-2024 Patient encounter procedure [facility] Physician [facility] Work Phone: Start: 06-23-2024 End: 06-23-2024 Bamhelio Galindo MD Work Phone: [facility] Start: 06-23-2024 End: 06-23-2024 Coleen Galindo MD Work Phone: [facility] Start: 06-23-2024 End: 06-23-2024 Office outpatient visit 15 minutes Susan Galindo MD Work Phone: [facility] Comment on above: Nasal obstruction (P rimary Dx) Start: 06-23-2024 End: 06-23-2024 ambulatory SUSAN GALINDO Not Available Start: 06-06-2024 End: 06-06-2024 ambulatory Ari Bowen Facility:[facility] Start: 06-06-2024 End: 06-06-2024 Patient encounter procedure Ari Bowen [facility] Start: 05-21-2024 End: 05-21-2024 ambulatory XXXX NONE Facility:[facility] Start: 05-21-2024 End: 05-21-2024 Patient encounter procedure Ari Learyjosé manuel [facility] Start: 05-19-2024 End: 05-19-2024 Office outpatient visit 25 minutes Susan Galindo MD Work Phone: [facility] Comment on above: Chronic rhinitis (Pr imary Dx); Chronic pansinusitis Start: 05-19-2024 End: 05-19-2024 ambulatory SUSAN GALINDO Not Available Start: 05-19-2024 End: 05-19-2024 Bamboo flowsheet Susan Galindo MD Work Phone: [facility] Start: 05-19-2024 End: 05-19-2024 Bamhelio Galindo MD [facility] Start: 05-01-2024 End: 05-01-2024 ambulatory [facility] Work Phone: Start: 05-01-2024 End: 05-01-2024 Patient encounter procedure [facility] Phys[facility] Work Phone: Start: 03-25-2024 End: 03-25-2024 ambulatory MD Addison Lawler Work Phone: [facility] Work Phone: Start: 03-25-2024 End: 03-25-2024 Patient encounter procedure MD Addison Lawler Work Phone: [facility] Physician [facility] Work Phone: Start: 03-04-2024 End: 03-04-2024 ambulatory MD Addison Lawler Work Phone: [facility] Work Phone: Start: 03-04-2024 End: 03-04-2024 Patient encounter procedure MD Addison Lawler Work Phone: [facility] Physician [facility] Work Phone: Start: 01-29-2024 End: 01-29-2024 ambulatory MD Addison Lawler Work Phone: [facility] Work Phone: Start: 01-29-2024 End: 01-29-2024 Patient encounter procedure MD Addison Lawler Work Phone: [facility] Work Phone: Start: 01-01-2024 Non-patient / Non-visit MD Addison Lawler Work Phone: [facility] Physician [facility] Work Phone: Start: 12-28-2023 Non-patient / Non-visit MD Addison Lawler Work Phone: [facility] Physician [facility] G[facility] Work Phone: Start: 12-28-2023 End: 12-28-2023 Admission to same day surgery center MD Addison Lawler Work Phone: [facility] Work Phone: Start: 12-28-2023 End: 12-28-2023 ambulatory MD Addison Lawler Work Phone: [facility] Work Phone: Start: 11-03-2023 Non-patient / Non-visit MD Addison Lawler Work Phone: [facility] Physician [facility] Work Phone: Start: 10-26-2023 Patient encounter status [facility] Start: 10-26-2023 End: 10-26-2023 ambulatory [facility] Work Phone: Start: 10-26-2023 End: 10-26-2023 Encounter for general adult medical examination without abnormal findings [facility] Start: 10-26-2023 End: 10-26-2023 Patient encounter procedure [facility] Physician [facility] Work Phone: Start: 03-20-2023 End: 03-20-2023 ambulatory Addison Lawler Other [employer] [facility] [employer] Other Start: 03-20-2023 Telephone encounter Addison Lawler [facility] Start: 01-16-2023 End: 01-16-2023 ambulatory Addison Lawler Other [employer] [facility] [employer] Other Start: 01-16-2023 Telephone encounter Addison Lawler [facility] Start: 12-28-2022 End: 12-28-2022 ambulatory Addison Lawler Other [facility] [employer] [facility] Other Start: 12-28-2022 Telephone encounter Addison Bucky [facility] Start: 12-07-2022 End: 12-07-2022 ambulatory Addison Lawler Other [facility] [employer] [facility] Other Start: 12-07-2022 Telephone encounter Addison Bucky [facility] Start: 11-09-2022 End: 11-09-2022 ambulatory Addison Bucky Other [facility] [employer] [facility] Other Start: 11-09-2022 Telephone encounter Addison Bucky [facility] Start: 10-25-2022 (Televisit) Televisit Addison Lawler Lili [facility] Start: 10-25-2022 End: 10-25-2022 ambulatory Addison Lawler Other [facility] [employer] [facility] Other Start: 10-17-2022 End: 10-17-2022 ambulatory Addison Lawler Other [facility] [employer] [facility] Other Start: 10-17-2022 Telephone encounter Addison Lawler [facility] Start: 10-03-2022 End: 10-04-[address] MATTI MADDEN . Facility:[facility] Start: 09-20-2022 End: 09-21-[address] ADDISON LAWLER Facility:[facility] Start: 09-19-2022 End: 09-19-2022 ambulatory Addison Lawler Other [facility] [employer] [facility] Other Start: 09-19-2022 Encounter for genera l adult medical examination without abnormal findings Addison Lawler [facility] Start: 09-19-2022 Periodic preventive med est patient 40-64yrs Addison Bucky [facility] Start: 08-14-2022 End: 08-15-[address] ADDISON LAWLER Facility: Start: 08-02-2022 End: 07-21-2022 Patient encounter procedure Ever Mccoy [facility] Start: 07-13-2022 End: 07-13-2022 Patient encounter procedure Ever Mccoy [facility] Start: 07-11-2022 End: 07-11-2022 Patient encounter procedure Ever Mccoy [facility] Start: 07-05-2022 End: 07-05-2022 Patient encounter procedure Ever Mccoy [facility] Start: 07-05-2022 End: 07-05-2022 Admission to same day surgery center Alfredo Pompa [facility] Start: 07-05-2022 ambulatory Facility:1 [id number] Start: 06-27-2022 End: 06-27-2022 Patient encounter procedure Alfredo Pompa [facility] Start: 05-15-2022 Adult health examination Addison Bucky Other [employer] Other Start: 05-15-2022 Gynecological examination normal Addison Lawler Other [employer] [facility] [employer] Other Start: 03-19-2022 End: 03-19-[address] MAMADOU HARRELL Facility:[facility] Start: 03-13-2022 End: 03-13-2022 ambulatory LENORA NOLAN . Facility:[facility] Start: 02-19-2022 End: 02-19-2022 ambulatory Kimmy Alonzo Other [employer] Other Start: 02-19-2022 Office outpatient ne w 30 minutes Kimmy Alonzo [facility] Start: 02-16-2022 End: 02-16-[address] ADDISON LAWLER Facility:[facility] Start: 12-07-2021 End: 12-07-[address] MATTI MADDEN . Facility:[facility] Start: 11-03-2021 End: 11-03-2021 Patient encounter procedure Susan Galindo [facility] Procedures Date Procedure Procedure Detail Performing Clinician Start: 12-19-2024 MM TOMOSYNTHESIS SCR EENING BI Matti Dominiqueo DO Work Phone: Start: 12-19-2024 Mammography Matti Fachelsie o DO Work Phone: Start: 09-25-2024 Follow-up visit Follow-up LIBAN BOB Start: 12-28-2023 Screening colonoscopy M D Addison Lawler Work Phone: Start: 10-23-2023 Mammography Susan monahan MD Work Phone: Start: 02-27-2023 Microscopic observat ion [Identifier] in Cervix by Cyto stain Susan Galindo MD Work Phone: Start: 10-03-2022 Mammography Liban yuan MD Work Phone: Start: 12-06-2021 Screening for malign ant neoplasm of breast Addison Lawler Other Start: 07-05-2017 Hypertension screening Addison Lawler Other Start: 09-01-2015 General examination of patient Addison Lawler Other Depression screening Addison Lawler Other H/O: hysterectomy Alfredo Davis n H/O: tubal ligation Alfredo Duenas own End: 12-06-2021 Hysterectomy Addison Lawler Other Screening for malign ant neoplasm of breast Addison Lawler Other Tonsillectomy Alfredo Pompa Plan of Treatment Date Care Activity Detail Author Start: 2026 Zoster Vaccines (1 of 2) Zoste r Vaccines (1 of 2) [facility] Start: 02-27-2026 Screening for malign ant neoplasm of cervix [facility] Start: 03-09-2025 Influenza vaccination Influenz a Vaccine (Season Ended) [facility] Start: 10-22-2024 Screening for malign ant neoplasm of breast Mammogram [facility] Start: 08-12-2024 End: 08-12-2024 Patient encounter procedure 08/12/2024 2:00 PM EST Office Visit [facility] [address] [place] [address] Libra Mullins PA [address] [place] [address] [facility] Start: 07-29-2024 [facility] Start: 06-23-2024 End: 06-23-2024 Patient encounter procedure [facility] Comment on above: Arrived Start: 03-09-2024 COVID-19 Vaccine ( season) COVID-19 Vaccine ( season) [facility] Start: 03-09-2024 Influenza vaccination Influenza Vacc ine (#1) [facility] Start: 12-28-2023 [facility] Start: 10-26-2023 Patient referral [facility] Work Phone: Start: 10-04-2023 Screening for malign ant neoplasm of breast Mammogram [facility] Start: 2006 Screening for malign ant neoplasm of cervix HPV/Cotest [facility] Start: 1998 DTaP/Tdap/Td Vaccine s (1 - Tdap) DTaP/Tdap/Td Vaccines (1 - Tdap) [facility] Start: 1997 Screening for malign ant neoplasm of cervix HPV/Cotest [facility] Start: 1995 Hepatitis B Vaccines (1 of 3 - 19+ 3-dose series) Hepatitis B Vaccines (1 of 3 - 19+ 3-dose series) [facility] Start: 1994 Hepatitis C screening Hepatitis C Sc reening [facility] Start: 1977 MMR Vaccines (1 of 1 - Standard series) MMR Vaccines (1 of 1 - Standard series) [facility] Start: 1976 HIV screening HIV Screening [facility] Start: 1976 Lipid panel Lipid Panel [facility] Start: 1976 Screening for malign ant neoplasm of colon [facility] Start: 1976 Yearly Adult Physical Yearly Adult P hysical [facility] Chlamydia trachomati s rRNA [Presence] in Cervix by TIMMY with probe detection [facility] Comprehensive metabo lic 2000 panel - Serum or Plasma [facility] Human papilloma viru s 16+18+31+33+35+39+45+51+ 52+56+58+59+66+68 DNA [Presence] in Cervix by Probe with signal amplification [facility] Human papilloma viru s 16+18+31+33+35+39+45+51+ 52+56+58+59+68 DNA [Presence] in Cervix by Probe with signal amplification [facility] Neisseria gonorrhoea e rRNA [Presence] in Cervix by TIMMY with probe detection [facility] Patient Education Colon polyps Hemorrhoids (DC) Know your Meds [facility] Work Phone: Patient referral [facility] Work Phone: [facility] Immunizations Immunization Date Immunization Notes Care Provider Kurtis pinedo 05-06-2021 COVID-19 Vaccine Pfi zer - Documentation Purposes Only Addison Lawler Other [facility] 05-10-2020 influenza, injectabl e, quadrivalent, preservative free Susan Galindo MD Work Phone: [facility] 05-10-2020 influenza virus vaccine, unspecified formulation Susan Galindo MD Work Phone: [facility] 05-01-2019 influenza, injectabl e, quadrivalent, preservative free Susan Galindo MD Work Phone: [facility] 05-23-2018 Influenza, injectabl e, Madin [place] Canine Kidney, preservative free, quadrivalent Susan Galindo MD Work Phone: [facility] 05-25-2017 influenza, injectabl e, quadrivalent, preservative free Susan Galindo MD Work Phone: [facility] 05-25-2017 tetanus and diphther ia toxoids, adsorbed, preservative free, for adult use (5 Lf of tetanus toxoid and 2 Lf of diphtheria toxoid) Addison Lawler Other [facility] 04-26-2016 tetanus and diphther ia toxoids, adsorbed, preservative free, for adult use (5 Lf of tetanus toxoid and 2 Lf of diphtheria toxoid) Addison Lawler Other [facility] 04-19-2016 influenza, injectabl e, quadrivalent, preservative free Susan Galindo MD Work Phone: [facility] 03-23-2015 influenza virus vaccine, split virus (incl. purified surface antigen) Addison Lawler Other [employer] Other 03-23-2015 influenza virus vaccine, unspecified formulation [facility] Payers Date Payer Category Payer Self-pay 2020 [facility] [id number] 2020 Blue [employer] Blue Yadira ld [facility] Care [facility] Member Subscriber Plan / Payer (Effective 2020-Present) Name: Michaelle Hill Relation to Subscriber: Self Name: Michaelle Hill Payer ID: [id number] (NAIC) Type: Not on file Address: [address] [id number] 1976 Unknown [id number] [id number]. 2.356 1976 Unknown [id number] 2.16.840.1.899916.3.579. 2.593 1976 Unknown [id number] 2.16.840.1.922498.3.579. 2.593 1976 Unknown [id number] 2.16.840.1.404372.3.579. 2.593 1976 Unknown [id number] 2.16.840.1.032045.3.579. 2.593 1976 Unknown [id number] 2.16.840.1.834466.3.579. 2.593 1976 Unknown [id number] 2.16.840.1.945526.3.579. 2.593 1976 Unknown [id number] 2.16.840.1.260791.3.579. 2.593 1976 Unknown [id number] 2.16.840.1.469043.3.579. 2.1259 1976 Unknown [id number] 2.16.840.1.229823.3.579. 2.1259 1976 Unknown [id number] 2.16.840.1.648326.3.579. 2.1244 1976 Unknown [id number] 2.16.840.1.292087.3.579. 2.727 1976 Unknown [id number] 2.16.840.1.305302.3.579. 2.727 1976 Unknown [id number] 2.16.840.1.730796.3.579. 2.727 1976 Unknown [id number] 2.16.840.1.918115.3.579. 2.727 1959 [facility] [id number] [id number] Unknown [id number] 2.16.840.1.386987.3.579. 2.531 Unknown [id number] 2.16.840.1.891700.3.579. 2.531 Social History Date Type Detail Facility Tobacco smoking status Unknown if ever sm oked [facility] Start: 05-19-2024 End: 06-23-2024 Sex Assigned At Female [facility] Tobacco smoking status No Smokin g Status Entered [facility] Start: 07-05-2022 End: 12-28-2023 Tobacco smoking status Ex-smoker (finding) [facility] Comment on above: Patient states she q uit 20 years ago. Tobacco smoking status Never [facility] Comment on above: Patient states she q uit 20 years ago. Start: 10-16-2023 [facility] Start: 1975 Sex Assigned At Female [facility] Start: 12-17-1997 End: 08-09-1999 History of tobacco use Current smoker [facility] Start: 12-17-1997 End: 08-09-1999 History of tobacco use Cigarette Smoker [facility] Start: 05-19-2024 End: 06-23-2024 Cigarettes smoked current (pack per day) - Reported 0.5 [facility] Start: 05-19-2024 Tobacco use and exposure Smokeless tobacco non-user [facility] Start: 05-19-2024 End: 06-23-2024 Alcoholic beverage intake Current drinker of alcohol (finding) [facility] Start: 02-26-2023 Alcohol Comment monthly, Caffe ine intake: 1-2 cups per day [facility] Start: 1975 Sex assigned at Not on file [facility] Start: 07-28-2024 End: 10-28-2024 Sex Female (finding) [facility] Start: 09-15-2024 End: 09-25-2024 Exposure to SARS-CoV-2 (event) Not sure [facility] Goals Date Patient Goal Desired Activity /State Functional Status Date Assessment Result Facility 05-21-2024 Functional Status N/A [facility] 07-21-2022 Functional Status No [facility] 07-05-2022 Functional Status No [facility] 06-27-2022 Functional Status No [facility] Clinical Notes 07-21-2019 to 10-28-2024 Note Date & Type Note Facility 10-28-2024 Evaluation note Diagnosis Onset Date Resolution Class 3 severe obesity with body mass index (BMI) of 40.0 to 44.9 in adult acute October 082024 1:41pm Essential (primary) hypertension acute October 28, 2024 1:41pm JULI on CPAP acute October 28, 025 1:41pm Right-sided temporomandibular joint pain-dysfunction syndrome acute October 28, 2024 1:41pm [facility] Work Phone: 1(575) 289-629203-20-2025 History of Present illness Narrative* Liban Bob MD - 09/25/2024 12:45 PM EDT [...] Procedures: Procedure: Rigid diagnostic nasal endoscopy Surgeon: Liban Bob MD Anesthesia: None Timeout: Performed Findings: [...] Nasopharynx: Clear, no discharge, no masses/lesions Modified Pepito Maneuver: Performed with a cotton tipped applicator, [...] grafting, and inferior turbinate reduction with lateralization. 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 [id number] History of Present illness Narrative* Susan Galindo MD - 05/19/2024 3:20 PM EST [...] day after starting steroids. documented in this encounterAlvin [facility]. [facility] Cancer [id number] Evaluation note* Diagnosis Onset Date Resolution Status Admit Date Palpitations acute April 1:40pm Sinusitis, acute maxillary acute May 01, 2024 1:40pm [facility] Work Phone: 1(560) 753-306510-24-2024 Evaluation note* Diagnosis Onset Date Resolution Status Admit Date Palpitations acute April 1:40pm Sinusitis, acute maxillary inactive May 01, 2024 1:40pm Anxiety and depression acute [facility] 2024 8:34am Essential (primary) hypertension acute July 28 8:34am Well woman exam acute July 102024 8:34am [facility] Work Phone: 1(125) 239-373506-21-2024 History and physical note Author Jennifer Akers [facility] December 28, 2023 8:20am Note Date/Time December 28, 2023 8:20 am [facility] [address] [place] [address] Gastroenterology H&P Signed Patient: Michaelle Hill MR#: [id number] : 1975 Acct:[id number] Age/Sex: 48 / F Adm Date: 4 Loc: Room: Type: [facility] Attending Dr: Jennifer Akers DO Copies to: DO Addison Moctezuma MD~ Date of Service: 12/28/2023 HISTORY [...] signed by Jennifer Akers DO> 12/28/23 0820 [facility] Work Phone: 1(815) 967-345606-21-2024 [facility]* Encounter Date Diagnosis Assessment Notes Treatment Notes Treatment Clinical Notes Jan, Generalized anxiety disorder (ICD-10 - F41.1) [facility] Other 04-19-2023 Evaluation note* Encounter Date Diagnosis [...] verbalized understanding and agreement with treatment plan. [facility] Other 04-11-2023 Evaluation note* Encounter Date Diagnosis Assessment Notes Treatment Notes Treatment Clinical Notes Oct, Class 3 obesity (ICD-10 - E66.01) [facility] Other 03-14-2023 Evaluation note* Encounter Date Diagnosis [...] obesity (ICD-10 - E66.01) weight loss recommended [facility] Other 12-28-2022 Hospital Discharge instructions Patient Education 07/05/2022 12:22:19 Post Op Patient Instructions - FT (Custom) (CUSTOM) [facility]12-28-2022 Evaluation + Plan note Future Scheduled Tests Radiology* Echo Transthoracic Complete 07/05/22 [facility]08-14-2022 Evaluation note* Encounter Date Diagnosis Assessment [...] understanding and is agreeable with treatment plan [employer] Other 01-13-2020 Evaluation + Plan note Future Appointments Appointment Date:07/13/2022 08:00:00 AM Scheduled Provider: Location:.[facility] Appointment Type:CV Echo (FT) Appointment Date:07/21/2022 04:30:00 PM Scheduled Provider:Ever Mccoy MD Location[facility] Appointment Type:Cardiology Follow Up (FT) Future Scheduled Tests Radiology* Echo Transthoracic [facility]22 [facility] No data available for this section [facility] Future Appointments Appointment Date:07/05/2022 10:30:00 AM Scheduled Provider: Location:[facility] App[facility] Type[facility]gery [facility] Future Appointments Appointment Date:07/21/2022 04:30:00 PM Scheduled Provider:Ever Mccoy MD Location[facility] Appointment Type:Cardiology Follow Up (FT) [facility] Future Appointments Appointment Date:06/06/2024 09:00:00 AM Scheduled Provider: Location:.[facility] Appointment Type:CV Holter/Event (FT) [facility] Evaluation noteNo Information[facility] [employer] Other Evaluation note* Diagnosis Onset Date Resolution Status Class 3 severe obesity with body mass index (BMI) of 40.0 to 44.9 in adult acute Screening for colon cancer a cute Wellness examination acute [facility] Work Phone: evaluation note* Diagnosis Onset Date Resolution Status Class 3 severe obesity with body mass index (BMI) of 40.0 to 44.9 in adult acute Generalized anxiety disorder acute Screening for colon cancer a cute Wellness examination acute [facility] Work Phone: evaluation noteNo assessment information available [facility] Work Phone: Evaluation note* Diagnosis Onset Date Resolution Status Sinusitis, [facility] Work Phone: evaluation note* Diagnosis Onset Date Resolution Status Sinusitis, acute maxillary a cute Sinusitis, acute maxillary a cute [facility] Work Phone: evaluation note* Diagnosis Onset Date Resolution Status Sinusitis, acute maxillary a cute Post-nasal drainage acute [facility] Work Phone: Evaluation note* Diagnosis Chronic rhinitis- Primary Chronic pansinusitis Other chronic sinusitis documented in this encounter [facility] HealthcareEvaluation note* Diagnosis Nasal obstruction- Primary Other diseases of nasal cavity and sinuses documented in this encounter [facility] HealthcareEvaluation note* Diagnosis Deviated nasal septum- Primary Nasal obstruction Other diseases of nasal cavity and sinuses Nasal deformity Acquired deformity of nose Deviated septum Deviated nasal septum Nasal congestion Other diseases of nasal cavity and sinuses Swelling of nose Hypertrophy of inferior nasal turbinate Nasal alar collapse Sleep-disordered breathing Other sleep disturbances Difficulty breathing Other dyspnea and respiratory abnormality documented in this encounter [facility] Work Phone: History general Narrative - Reported* Type Description Date Surgical History hysterectomy Surgical History tonsillectomy Hospitalization History see above [facility] Other Hisfmte general Narrative - Reported* Type Description Date [...] Surgical History D&C Hospitalization History see above [facility] [employer] Other History general Narrative - [facility] [employer] Other Hospital Discharge instructions No data available for this section [facility] instructionsAmbulatory Orders* Referral to Gastroenterology Time Frame: 10/26/23, Location: None Selected * Referral to Weight Management Time Frame: 10/26/23, Location: None Selected [facility] Work Phone: Progress note No data available for this section [facility] (narrative)No reason for referral information availableFire[facility] Work Phone: Summary Purpose Family History No Family History Records Found Relationship Condition Age at Onset Recorded Date/T roberth father Heart disease Unknown Advance Directives No Advanced Directives Records Found Advance Directive Response Recorded Date/ Time Advance [...] section and content) DATE CREATED AUTHOR 05/16/2022 [facility] dical Specialist DATE CREATED AUTHOR AUTHOR'S ORGANIZ ATION 08/12/2022 [facility] DATE CREATED AUTHOR AUTHOR'S ORGANIZ ATION 10/12/2022 [facility] DATE CREATED AUTHOR AUTHOR'S ORGANIZ ATION 06/24/2024 [facility] dical Specialists [facility] DATE CREATED AUTHOR AUTHOR'S ORGANIZ ATION 08/08/2024 [facility] DATE CREATED AUTHOR AUTHOR'S ORGANIZ ATION 10/01/2024 [facility] DATE CREATED AUTHOR AUTHOR'S ORGANIZ ATION 04/15/2025 [place] [facility] Patient Care team informatio n (unrecognized section and content) Team Status: Active Member Role Status Dates Addison Lawler MD Primary Care Provider Active Team Status: Inactive Member Role Status Dates Addison Lawler MD Primary Care Provider Active Start: December 28, 2023 End: December 28, 2023 Jennifre Akers , DO Attending Provider Active St art: December 28, 2023 End: December 28, 2023 Team Status: Active Member Role Status Dates Addison Lawler MD Primary Care Provider Active Start: December 28, 2023 Jennifer Montes De Oca Ly , DO Attending Provider, Other Provider Active Start: December 28, 2023 Team Status: Active Member Role Status Dates Addison Lawler MD Primary Care Provider Active Start: January 01, 2024 Lauryn Johnston Attending Provider Active Start: 2023 Team Status: Inactive Member Role Status Dates Addison Lawler MD Primary Care Provide r, Attending Provider Active Start: January 29, 2024 End: January 29, 2024 Team Status: Inactive Member Role Status Dates Addison Lawler MD Primary Care Provide r, Attending Provider Active Start: March 04, 2024 End: March 04, 2024 Team Status: Active Member Role Status Dates Addison Lawler MD Primary Care Provide r, Attending Provider Active Start: November 03, 2023 Team Status: Inactive Member Role Status Dates Addison Lawler MD Primary Care Provide r, Attending Provider Active Start: October 26, 2023 End: October 26, 2023 Team Status: Inactive Member Role Status Dates dAdison Lawler MD Primary Care Provide r, Attending Provider Active Start: March 25, 2024 End: March 25, 2024 Team Status: Inactive Member Role Status Dates Addison Lawler MD Primary Care Provide r, Attending Provider Active Start: May 01, 2024 End: May 01, 2024 [employer] Relationship Specialty Start Date End Date Addison Lawler MD [address] [place] [address] PCP - General Family Medicine 02/27/23 [employer] Relationship Specialty Start Date End Date Addison Lawler MD [address] [place] [address] PCP - General Family Medicine 02/27/23 [employer] Relationship Specialty Start Date End Date Addison Lawler MD [address] [facility] [place] [id number] PCP - [facility] 02/27/23 [employer] Relationship Specialty Start Date End Date Addison Lawler MD [address] [facility] [place] [id number] PCP - [facility] 02/27/23 Team Status: Inactive Member Role Status Dates Addison Lawler MD Primary Care Provide r, Attending Provider Active Start: July 28, 2024 End: July 28, 2024 Team Status: Inactive Member Role Status Dates Addison Lawler MD Primary Care Provide r, Attending Provider Active Start: October 28, 2024 End: October 28, 2024 [employer] Relationship Specialty Start Date End Date Addison Lawler MD PCP - [facility] 02/27/23 Team Status: Inactive Member Role Status Dates Addison Lawler MD Primary Care Provider Active Start: October 28, 2024 End: October 28, 2024 Addison Lawler MD Attending Provider Active St art: October 28, 2024 End: October 28, 2024 Team Status: Inactive Member Role Status Dates Addison Lawler MD Primary Care Provider Active Start: January 23, 2025 End: January 23, 2025 Addison Lawler MD Attending Provider Active St art: [...] BE BASED ON THE PRIMARY CLINICAL RECORDS. [facility] [employer] [facility]. provides no warranty or guarantee of the accuracy or completeness of information in this document.
[2025-04-20 09:09] LABS: Anion Gap 12.7; Blood Urea Nitrogen 13.0 mg/dL (7.0-18.0); Calcium 9.1 mg/dL (8.5-10.1); Carbon Dioxide 31.0 mmol/L (21.0-32.0); Chloride 101 mmol/L (98-107); Estimated GFR (African America >60 (>=60 mL/min/1.73m^2); Estimated GFR (Non-African Ame >60 (>=60 mL/min/1.73m^2); Glucose 102 mg/dL (74-106); Potassium 3.7 mmol/L (3.5-5.1); Sodium 141 mmol/L (136-145)
== END 2025-04-20 07:06 | disposition home or self-care (01) ==
LOC: LAB 07:07
PROVIDERS: PCP Family Medicine; Visit Provider Physician Assistant
DX: R00.2 Palpitations (principal); R07.9 Chest pain, unspecified; E87.6 Hypokalemia
CPT/HCPCS: 36415; 80048